=== PATIENT | female | born 1960 | race Caucasian/White ===

== ENCOUNTER 2016-05-21 11:27 | Observation (INO) ==
--- NOTE | 2016-05-21 11:33 | Emergency Department Note ---
Disposition Clinical Impression: COPD exacerbation, Acute exacerbation of chronic obstructive airways disease, History of DVT (deep vein thrombosis) Disposition: Admitted As Inpatient Referrals: NO,PCP [Non-Partnered Physician] - Forms: ED Satisfaction Letter General Adult HPI - General Chief complaint: ED Shortness of Breath/Dyspnea Stated complaint: KALIA Time Seen by Provider: 05/21/16 11:33 - History of Present Illness HPI Narrative: 56-year-old female with a history of COPD who requires 3 L of oxygen reports to the emergency department from her primary care office, there is concern for persistent wheezing. The patient describes a cough and shortness of breath. She has a remote history of a DVT but is not anticoagulated. The patient is not having chest pain or coughing up blood. There is no history of syncope abdominal pain vomiting or diarrhea. No sore throat runny nose or ear pain. There is no history of difficulty moving the arms or legs independently. No leg swelling or pain or coughing up blood. The patient states she has taken 6 breathing treatments today and is still wheezing. There is no history of fever. There is no history of confusion or choking or gasping. No trouble swallowing. The patient denies any history of coronary artery disease or CHF. - Related Data Home Medications Medication Instructions Recorded Confirmed Montelukast [Singulair] 10 mg PO HS 10/01/14 05/21/16 Omeprazole [PriLOSEC] 20 mg PO BIDAC 10/01/14 05/21/16 Albuterol Sulfate [Proair Hfa] 1 puff IH Q4HR PRN 06/10/15 05/21/16 Fluticasone/Salmeterol [Advair 1 puff IH BID 06/10/15 05/21/16 250-50 Diskus] Ipratropium/Albuterol Neb [Duoneb] 3 ml IH Q4HR PRN 06/10/15 05/21/16 Escitalopram [Lexapro] 10 mg PO DAILY 05/21/16 05/21/16 GuaiFENesin ER [Mucinex] 1,200 mg PO BID PRN 05/21/16 05/21/16 Tiotropium [Spiriva] 1 cap IH DAILY 05/21/16 05/21/16 Previous Rx's Medication Instructions Recorded LORazepam [Ativan] 1 mg PO TID PRN #30 tablet 06/16/15 Allergies Allergy/AdvReac Type Severity Reaction Status Date / Time pantoprazole [From Protonix] Allergy See Verified 05/21/16 11:33 Comments All systems ED: reviewed and negative except as stated. 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 Absent: meningismus - Chest Chest inspection: Present: symmetric chest wall rise. Absent: tenderness - Respiratory Respiratory exam: Present: wheezes, prolonged expiratory phase. Absent: normal lung sounds bilaterally, respiratory distress - Cardiovascular Cardiovascular exam: Present: regular rate, normal rhythm, normal heart sounds - Abdominal Exam Abdominal exam: Present: soft, Non-Tender, normal bowel sounds. Absent: tenderness, distention, guarding, rebound, rigidity, pulsatile mass - Extremities Exam Extremities exam: Present: normal inspection, full ROM, normal capillary refill. Absent: tenderness, pedal edema, joint swelling, calf tenderness - Expanded Lower Extremity Exam Lower leg exam: Absent: Homans' sign Neurovascular/Tendon exam: Present: normal capillary refill. Absent: motor deficit, sensory deficit, tendon deficit, extremity cold to touch, pallor - Back Exam Back exam: Present: normal inspection, full ROM. Absent: tenderness, CVA tenderness (R), CVA tenderness (L), vertebral tenderness - Neurological Exam Neurological exam: Present: alert, oriented X3, CN II-XII intact. Absent: motor sensory deficit - Psychiatric Psychiatric exam: Present: normal affect, normal mood - Skin Skin exam: Present: warm, dry, intact, normal color. Absent: rash, cyanosis, diaphoresis, erythema, pallor, mottled Course Vital Signs Temperature 98.3 F 05/21/16 11:34 Pulse Rate 96 05/21/16 11:34 Respiratory Rate 30 05/21/16 11:34 Blood Pressure 114/81 05/21/16 11:34 O2 Sat by Pulse Oximetry 90 05/21/16 11:34 Temperature 98.3 F 05/21/16 11:34 Pulse Rate 84 05/21/16 13:00 Respiratory Rate 26 05/21/16 13:00 Blood Pressure 118/84 05/21/16 13:00 O2 Sat by Pulse Oximetry 96 05/21/16 13:00 Oxygen Delivery Oxygen Delivery Nasal Cannula Medical Decision Making - [facility] Narrative Medical decision making narrative: The patient had 6 breathing treatments prior to arrival, she usually wears 3 L nasal cannula, on 3 L here she is about 91%, somewhat tachypnea, and persistently wheezy. She received a DuoNeb here, subsequently she had a peak flow in which she was able to reach 100 max. A 9 mm DuoNeb was ordered. Continuous oxygen was supplied. The patient appears to have failed outpatient therapy, she is wheezing, she was given Solu-Medrol and antibiotic therapy. Laboratory testing EKG negative. She has a history of DVT remotely, she is not anticoagulated, a d-dimer came back negative. The patient is persistently wheezing, she appears to have failed outpatient therapy, based on no improvement in the ED, I think it would be appropriate to admit the patient to the hospital. The patient is currently stable. I consulted with the hospitalist on-call who has accepted the patient to their care. - Lab Data Lab results reviewed: Yes I reviewed the patient's lab results. Result diagrams: 05/21/16 11:45 05/21/16 11:45 Lab Results 05/21/16 05/21/16 05/21/16 Range/Units 11:45 11:45 11:45 WBC 9.8 (4.3-11.1) K/mcL RBC 4.43 (3.82-4.97) M/mcL Hgb 13.9 (11.5-15.4) g/dL Hct 41.1 (35.3-44.9) % MCV 92.8 (83.0-100.0) fL MCH 31.4 (28.0-33.3) pg MCHC 33.8 (31.6-35.5) g/dL RDW 13.6 (11.5-14.5) % Plt Count 372 (140-400) K/mcL MPV 9.6 (9.4-12.4) fL Immature Gran % 0.3 (0-4) % Seg Neutrophils % 62.2 % Lymphocytes % 26.4 % Monocytes % 5.4 % Eosinophils % 4.7 % Basophils % 1.0 % Neutrophils # 6.1 (1.6-8.9) K/mcL Lymphocytes # 2.6 (0.6-4.6) K/mcL Monocytes # 0.5 (0.0-1.3) K/mcL Eosinophils # 0.5 (0.0-0.6) K/mcL Basophils # 0.1 (0.0-0.2) K/mcL PT 10.7 (9.4-12.1) Seconds INR 1.0 APTT 32.2 (26.0-36.0) Seconds D-Dimer 241 (0-500) ng/mLFEU Sodium 140 (136-145) mEq/L Potassium 4.0 (3.5-4.5) mEq/L Chloride 103 (98-109) mEq/L Carbon Dioxide 28 (19-29) mEq/L BUN 6 L (7-20) mg/dL Creatinine 0.88 (0.57-1.11) mg/dL Est GFR ( Amer) > 60 (> 60) Est GFR (Non-Af Amer) > 60 (> 60) BUN/Creatinine Ratio 7 (6-26) Glucose 98 (70-99) mg/dL Calculated Osmolality 288 (280-300) Lactic Acid (0.5-2.2) mmol/L Calcium 9.8 (8.6-10.8) mg/dL Total Bilirubin 0.4 (0.2-1.2) mg/dL Direct Bilirubin 0.1 (0.0-0.5) mg/dL Indirect Bilirubin 0.3 (0.0-1.2) mg/dL AST 12 (5-34) Units/L ALT 11 (0-55) Units/L Alkaline Phosphatase 92 (38-126) Units/L Troponin I (0-0.03) ng/mL C-Reactive Protein 0 (Less than 5) mg/L B-Natriuretic Peptide (0-100) pg/mL Serum Total Protein 7.0 (6.0-8.3) g/dL Albumin 4.1 (3.5-5.0) g/dL Globulin 2.9 (2.4-3.5) g/dL Albumin/Globulin Ratio 1.4 (1.1-2.2) 05/21/16 05/21/16 05/21/16 Range/Units 11:45 11:45 11:45 WBC (4.3-11.1) K/mcL RBC (3.82-4.97) M/mcL Hgb (11.5-15.4) g/dL Hct (35.3-44.9) % MCV (83.0-100.0) fL MCH (28.0-33.3) pg MCHC (31.6-35.5) g/dL RDW (11.5-14.5) % Plt Count (140-400) K/mcL MPV (9.4-12.4) fL Immature Gran % (0-4) % Seg Neutrophils % % Lymphocytes % % Monocytes % % Eosinophils % % Basophils % % Neutrophils # (1.6-8.9) K/mcL Lymphocytes # (0.6-4.6) K/mcL Monocytes # (0.0-1.3) K/mcL Eosinophils # (0.0-0.6) K/mcL Basophils # (0.0-0.2) K/mcL PT (9.4-12.1) Seconds INR APTT (26.0-36.0) Seconds D-Dimer (0-500) ng/mLFEU Sodium (136-145) mEq/L Potassium (3.5-4.5) mEq/L Chloride (98-109) mEq/L Carbon Dioxide (19-29) mEq/L BUN (7-20) mg/dL Creatinine (0.57-1.11) mg/dL Est GFR ( Amer) (> 60) Est GFR (Non-Af Amer) (> 60) BUN/Creatinine Ratio (6-26) Glucose (70-99) mg/dL Calculated Osmolality (280-300) Lactic Acid 1.0 (0.5-2.2) mmol/L Calcium (8.6-10.8) mg/dL Total Bilirubin (0.2-1.2) mg/dL Direct Bilirubin (0.0-0.5) mg/dL Indirect Bilirubin (0.0-1.2) mg/dL AST (5-34) Units/L ALT (0-55) Units/L Alkaline Phosphatase (38-126) Units/L Troponin I 0.00 (0-0.03) ng/mL C-Reactive Protein (Less than 5) mg/L B-Natriuretic Peptide 19 (0-100) pg/mL Serum Total Protein (6.0-8.3) g/dL Albumin (3.5-5.0) g/dL Globulin (2.4-3.5) g/dL Albumin/Globulin Ratio (1.1-2.2) - Radiology Data Radiology results reviewed: Yes I reviewed the patient's radiology results. - EKG Data EKG #1 EKG shows normal: sinus rhythm Rate: normal Rhythm: NSR Interpretation: no acute changes
[2016-05-21] MEDS ORDERED: methylPREDNISolone 125 MG/2 ML VIAL IVP ONE (11:40)
[2016-05-21] MEDS ORDERED: Levofloxacin 750 MG/150 ML 750 MG/150 ML BAG IVPB ONE (11:41)
[2016-05-21] MEDS ORDERED: Ipratropium/Albuterol Neb 3 ML IH ONE ×2 (11:41→12:28)
[2016-05-21 11:56] LABS: Basophils # 0.1 K/mcL (0.0-0.2); Eosinophils # 0.5 K/mcL (0.0-0.6); Eosinophils % 4.7 %; Hematocrit 41.1 % (35.3-44.9); Hemoglobin 13.9 g/dL (11.5-15.4); Immature Granulocytes % 0.3 % (0-4); Lymphocytes # 2.6 K/mcL (0.6-4.6); Lymphocytes % 26.4 %; Mean Corpuscular HGB Conc 33.8 g/dL (31.6-35.5); Mean Corpuscular Hemoglobin 31.4 pg (28.0-33.3); Mean Corpuscular Volume 92.8 fL (83.0-100.0); Mean Platelet Volume 9.6 fL (9.4-12.4); Monocytes # 0.5 K/mcL (0.0-1.3); Monocytes % 5.4 %; Neutrophils # 6.1 K/mcL (1.6-8.9); Platelet Count 372 K/mcL (140-400); Red Blood Count 4.43 M/mcL (3.82-4.97); Red Cell Distribution Width 13.6 % (11.5-14.5); Segmented Neutrophils % 62.2 %
[2016-05-21 12:02] LABS: Prothrombin Time 10.7 Seconds (9.4-12.1)
[2016-05-21 12:04] LABS: Activated Partial Thrombo Time 32.2 Seconds (26.0-36.0)
[2016-05-21 12:08] LABS: Alanine Aminotransferase 11 Units/L (0-55); Albumin 4.1 g/dL (3.5-5.0); Albumin/Globulin Ratio 1.4 (1.1-2.2); Alkaline Phosphatase 92 Units/L (38-126); Aspartate Amino Transferase 12 Units/L (5-34); BUN/Creatinine Ratio 7 (6-26); Bilirubin,Direct 0.1 mg/dL (0.0-0.5); Bilirubin,Indirect 0.3 mg/dL (0.0-1.2); Bilirubin,Total 0.4 mg/dL (0.2-1.2); Blood Urea Nitrogen 6 mg/dL (7-20); C-Reactive Protein 0 mg/L (Less than 5); Calcium 9.8 mg/dL (8.6-10.8); Carbon Dioxide 28 mEq/L (19-29); Chloride 103 mEq/L (98-109); Globulin 2.9 g/dL (2.4-3.5); Glucose 98 mg/dL (70-99); Osmolality,Calculated 288 (280-300); Sodium 140 mEq/L (136-145); eGFR For African Americans > 60 (> 60); eGFR For Non-African Americans > 60 (> 60)
[2016-05-21] MEDS ORDERED: Naloxone 0.4 MG/ML INJ IVP PRN (15:29)
[2016-05-21] MEDS ORDERED: Albuterol 2.5 MG/3 ML NEBULIZER IH PRN (15:30)
[2016-05-21] MEDS ORDERED: *HR* LORazepam 1 MG TABLET PO PRN (15:32)
--- NOTE | 2016-05-21 15:38 | Internal Med History&Physical ---
<Ema Jimenez M - Last Filed: 05/21/16 15:56> Date of Encounter: 05/21/16 Time of Encounter: 15:34 Assessment and Plan (1) Acute exacerbation of chronic obstructive airways disease Current visit: Yes Status: Acute Patient with COPD, wears 3L of oxygen at home. Patient with increased shortness of breath, wheezing and coughing over the last several days, despite using prescribed medications and nebulizers. WBC normal at 9.8. She is afebrile. CXR shows no active pulmonary disease. On exam, diffuse expiratory wheezes bilaterally. She received duoneb treatment, 125mg Solu-medrol IVP and IVPB levaquin in the ED Solu-medrol 40mg IVP Q8hr Will start her on Azithromycin PO duoneb treatments QID albuterol nebulizer Q2hr PRN Budesonide/Formoterol BID Continue home doses of Singulair, Spiriva and Musinex Titrate O2 to maintain O2 saturation > 90%. (2) GERD (gastroesophageal reflux disease) Current visit: No Status: Chronic Continue home dose of prilosec. Qualifiers: Esophagitis presence: without esophagitis Qualified Code(s): K21.9 - Gastro -esophageal reflux disease without esophagitis (3) Sleep apnea Current visit: Yes Status: Acute Patient wears bipap at home overnight. Bipap ordered for overnight and Respiratory therapy consult ordered. Qualifiers: Sleep apnea type: unspecified type Qualified Code(s): G47.30 - Sleep apnea , unspecified (4) DVT prophylaxis Current visit: No Status: Acute Encourage ambulation anti-embolic stockings Lovenox 40mg SQ daily Internal Medicine - H&P: HPI Chief complaint: shortness of breath Admitted From: Emergency Dept Plans for Post Hospital Care: Home History of present illness: Ms. Beckett is a 56 year old female with COPD, GERD, remote history of CVA, remote history of DVT presented to the emergency department today with complaints of increasing cough, shortness of breath, and wheezing. Patient reports she noticed her shortness of breath was getting worse for 5 days ago and has progressed since then, she has increasing cough productive of clear white sputum, and she has wheezing that has progressively worsened since onset 4 -5 days ago as well. She has been taking her medications, inhalers, nebulizers as prescribed at home without relief of her symptoms. She also wears a BiPAP overnight, but reports that her symptoms are worse in the morning. She reports occasional lightheadedness associated with her shortness of breath. She denies any chest pain, palpitations, headache, fever, chills, sweats, numbness or tingling. Evaluation in the emergency department included an EKG which showed normal sinus rhythm, chest x-ray which showed no active pulmonary disease. D- dimer was obtained which was negative at 241. Troponin was negative at 0.0. Lactate was normal at 1.0, BNP was normal at 19. White blood cell count was normal at 9.8. On exam, patient is alert and oriented, in no acute distress. Lungs have diffuse expiratory wheezes. Heart has regular rate and rhythm. Past Med Surg Social Fam HX - Past Medical History Medical history: arthritis, asthma, COPD, CVA, DVT, GERD Psychiatric history: anxiety - Past Surgical History Surgical History: appendectomy, hysterectomy, orthopedic, other - Social History Smoking Status: Former smoker (33 pack year history) Smokeless Tobacco Status: No Alcohol use: rarely Drug use: none - Family History Mother Living Status: Age at : 88 Cause of : COPD Hx Family Cardiac Disorders: Yes Hx Family Respiratory Disorders: Yes Hx Family Cancer: No Hx Family GI Disorders: Yes (colostomy form colon tear colonoscopy) Hx Family Endocrine Disorder: No Hx Family Neuromuscular Disorders: No Hx Family Neurologic Disorders: No Hx Family HEENT Disorders: No Hx Family Autoimmune Disorders: No Father Living Status: Age at : 73 Cause of : lung CA Hx Family Cardiac Disorders: Yes Hx Family Cancer: Yes Internal Medicine - H&P: Meds Montelukast [Singulair] 10 mg PO HS 10/01/14 [History] Omeprazole [PriLOSEC] 20 mg PO BIDAC 10/01/14 [History] Albuterol Sulfate [Proair Hfa] 1 puff IH Q4HR PRN 06/10/15 [History] Fluticasone/Salmeterol [Advair 250-50 Diskus] 1 puff IH BID 06/10/15 [History] Ipratropium/Albuterol Neb [Duoneb] 3 ml IH Q4HR PRN 06/10/15 [History] LORazepam [Ativan] 1 mg PO TID PRN #30 tablet 06/16/15 [Rx] Escitalopram [Lexapro] 10 mg PO DAILY 05/21/16 [History] GuaiFENesin ER [Mucinex] 1,200 mg PO BID PRN 05/21/16 [History] Tiotropium [Spiriva] 1 cap IH DAILY 05/21/16 [History] Allergies pantoprazole [From Protonix] Allergy (Verified 05/21/16 11:33) See Comments All Systems PM: A 10-system review of systems was performed and is negative for pertinent findings except as documented above in the HPI. - Constitutional Constitutional: no chills, no fever(s), no night sweats - EENT Eyes: no change in vision, no discharge, no pain, no photophobia Ears: no ear discharge, no ear pain, no tinnitus Nose, mouth and throat: no dysphagia, no nasal discharge, no neck pain, no sore throat - Cardiovascular Cardiovascular ROS IM: dyspnea, dyspnea on exertion, lightheadedness, no chest pain, no diaphoresis, no palpitations, no syncope - Respiratory Respiratory: cough, dyspnea, dyspnea on exertion, wheezing, excessive phlegm production - Gastrointestinal Gastrointestinal: no abdominal pain, no diarrhea, no hematemesis, no hematochezia, no melena, no nausea, no vomiting - Genitourinary Genitourinary: no change in urinary stream, no dysuria, no flank pain, no hematuria - Musculoskeletal Musculoskeletal ROS IM: no numbness, no tingling - Integumentary Integumentary IM: no rash, no unusual bruising - Neurological Neurological ROS: no confusion, no convulsions, no focal weakness, no numbness, no tingling, no tremor(s) - Hematologic/Lymphatic Hematologic/Lymphatic: no easy bruising - Constitutional Vitals: Temp Pulse Resp BP Pulse Ox 98.2 F 95 16 119/70 96 05/21/16 14:53 05/21/16 14:53 05/21/16 14:53 05/21/16 14:53 05/21/16 14:53 General appearance: Present: A&O X 3, pleasant, no acute distress - Head Head exam: Present: atraumatic, normocephalic - Eye Eye exam: Present: PERRL, conjuntiva pink, sclera anicteric Pupils: Present: PERRL - Neck Neck exam general surgery: Present: supple, trachea midline. Absent: lymphadenopathy - Respiratory Respiratory exam: Present: wheezes (diffuse, bilateral expiratory wheezes). Absent: accessory muscle use, rales, rhonchi - Cardiovascular Cardiovascular exam: Present: RRR, +S1, +S2. Absent: diastolic murmur, gallop, rubs, systolic murmur - GI/Abdominal GI/Abdominal exam: Present: normal bowel sounds, soft, no peritoneal signs. Absent: distended, tenderness - Extremities Exam Extremities exam: Present: warm, radial pulses palpable and symetrical. Absent : calf tenderness, cyanotic, pedal edema - Neurological Exam Neurological exam: Present: CN II-XII intact, oriented X3, no focal deficits. Absent: facial droop, speech deficit - Skin Skin exam: Present: dry, intact Internal Med - H&P Results - Labs CBC & Chem 7: 05/21/16 11:45 05/21/16 11:45 Labs: All Lab Results (24 Hours) 05/21/16 05/21/16 05/21/16 Range/Units 11:45 11:45 11:45 WBC 9.8 (4.3-11.1) K/mcL RBC 4.43 (3.82-4.97) M/mcL Hgb 13.9 (11.5-15.4) g/dL Hct 41.1 (35.3-44.9) % MCV 92.8 (83.0-100.0) fL MCH 31.4 (28.0-33.3) pg MCHC 33.8 (31.6-35.5) g/dL RDW 13.6 (11.5-14.5) % Plt Count 372 (140-400) K/mcL MPV 9.6 (9.4-12.4) fL Immature Gran % 0.3 (0-4) % Seg Neutrophils % 62.2 % Lymphocytes % 26.4 % Monocytes % 5.4 % Eosinophils % 4.7 % Basophils % 1.0 % Neutrophils # 6.1 (1.6-8.9) K/mcL Lymphocytes # 2.6 (0.6-4.6) K/mcL Monocytes # 0.5 (0.0-1.3) K/mcL Eosinophils # 0.5 (0.0-0.6) K/mcL Basophils # 0.1 (0.0-0.2) K/mcL PT 10.7 (9.4-12.1) Seconds INR 1.0 APTT 32.2 (26.0-36.0) Seconds D-Dimer 241 (0-500) ng/mLFEU Sodium 140 (136-145) mEq/L Potassium 4.0 (3.5-4.5) mEq/L Chloride 103 (98-109) mEq/L Carbon Dioxide 28 (19-29) mEq/L BUN 6 L (7-20) mg/dL Creatinine 0.88 (0.57-1.11) mg/dL Est GFR ( Amer) > 60 (> 60) Est GFR (Non-Af Amer) > 60 (> 60) BUN/Creatinine Ratio 7 (6-26) Glucose 98 (70-99) mg/dL Calculated Osmolality 288 (280-300) Lactic Acid (0.5-2.2) mmol/L Calcium 9.8 (8.6-10.8) mg/dL Total Bilirubin 0.4 (0.2-1.2) mg/dL Direct Bilirubin 0.1 (0.0-0.5) mg/dL Indirect Bilirubin 0.3 (0.0-1.2) mg/dL AST 12 (5-34) Units/L ALT 11 (0-55) Units/L Alkaline Phosphatase 92 (38-126) Units/L Troponin I (0-0.03) ng/mL C-Reactive Protein 0 (Less than 5) mg/L B-Natriuretic Peptide (0-100) pg/mL Serum Total Protein 7.0 (6.0-8.3) g/dL Albumin 4.1 (3.5-5.0) g/dL Globulin 2.9 (2.4-3.5) g/dL Albumin/Globulin Ratio 1.4 (1.1-2.2) 05/21/16 05/21/16 05/21/16 Range/Units 11:45 11:45 11:45 WBC (4.3-11.1) K/mcL RBC (3.82-4.97) M/mcL Hgb (11.5-15.4) g/dL Hct (35.3-44.9) % MCV (83.0-100.0) fL MCH (28.0-33.3) pg MCHC (31.6-35.5) g/dL RDW (11.5-14.5) % Plt Count (140-400) K/mcL MPV (9.4-12.4) fL Immature Gran % (0-4) % Seg Neutrophils % % Lymphocytes % % Monocytes % % Eosinophils % % Basophils % % Neutrophils # (1.6-8.9) K/mcL Lymphocytes # (0.6-4.6) K/mcL Monocytes # (0.0-1.3) K/mcL Eosinophils # (0.0-0.6) K/mcL Basophils # (0.0-0.2) K/mcL PT (9.4-12.1) Seconds INR APTT (26.0-36.0) Seconds D-Dimer (0-500) ng/mLFEU Sodium (136-145) mEq/L Potassium (3.5-4.5) mEq/L Chloride (98-109) mEq/L Carbon Dioxide (19-29) mEq/L BUN (7-20) mg/dL Creatinine (0.57-1.11) mg/dL Est GFR ( Amer) (> 60) Est GFR (Non-Af Amer) (> 60) BUN/Creatinine Ratio (6-26) Glucose (70-99) mg/dL Calculated Osmolality (280-300) Lactic Acid 1.0 (0.5-2.2) mmol/L Calcium (8.6-10.8) mg/dL Total Bilirubin (0.2-1.2) mg/dL Direct Bilirubin (0.0-0.5) mg/dL Indirect Bilirubin (0.0-1.2) mg/dL AST (5-34) Units/L ALT (0-55) Units/L Alkaline Phosphatase (38-126) Units/L Troponin I 0.00 (0-0.03) ng/mL C-Reactive Protein (Less than 5) mg/L B-Natriuretic Peptide 19 (0-100) pg/mL Serum Total Protein (6.0-8.3) g/dL Albumin (3.5-5.0) g/dL Globulin (2.4-3.5) g/dL Albumin/Globulin Ratio (1.1-2.2) - Diagnostic Studies Chest x-ray Additional comments: Chest X-Ray 05/21/16 11:36 IMPRESSION: 1. No active pulmonary disease. D/ / Tone Alvarenga MD / Tone Alvarenga MD Interpreting Provider: Tone Alvarenga MD <PowerJuventino T - Last Filed: 05/21/16 17:20> Date of Encounter: 05/21/16 Internal Medicine - H&P: HPI History of present illness: Ms. Beckett is a 56 year old female All Systems PM: A 10-system review of systems was performed and is negative for pertinent findings except as documented above in the HPI. - Constitutional Vitals: Temp Pulse Resp BP Pulse Ox 98.2 F 95 16 119/70 96 05/21/16 14:53 05/21/16 14:53 05/21/16 14:53 05/21/16 14:53 05/21/16 16:02 Internal Med - H&P Results - Labs CBC & Chem 7: 05/21/16 11:45 05/21/16 11:45 - Attending Attestation I have independently interviewed and examined this patient. I have discussed this patient with CRISTINA Yates, and her documentation reflects the plan of care with the following addendum 46 F with chronic respiratory failure on home O2, JOSH, ex-smoker, COPD presented with worsening SOB, and wheezing. Labs and imaging unremarkable. Agree with management for COPDE, duonebs, steroids, oral antibiotics, anticipate early discharge. Rest of details as in geospatial extractor analysis documentation
[2016-05-21] MEDS: MethylPREDNISolone 40 MG/ML VIAL IVP SCH (17:20)
[2016-05-21] MEDS: Azithromycin 250 MG TABLET PO SCH (17:20)
[2016-05-21] MEDS: Ipratropium/Albuterol Neb 3 ML IH SCH ×2 (19:34→23:21)
[2016-05-21] MEDS: Budesonide/Formoterol 160/4.5 MDI IH SCH (23:21)
[2016-05-22] MEDS: MethylPREDNISolone 40 MG/ML VIAL IVP SCH ×3 (00:57→18:02)
[2016-05-22] MEDS: Ipratropium/Albuterol Neb 3 ML IH SCH ×3 (04:24→16:17)
[2016-05-22 04:59] LABS: Hematocrit 38.6 % (35.3-44.9); Hemoglobin 12.6 g/dL (11.5-15.4); Immature Granulocytes % 0.5 % (0-4); Lymphocytes # 0.7 K/mcL (0.6-4.6); Lymphocytes % 9.1 %; Mean Corpuscular HGB Conc 32.6 g/dL (31.6-35.5); Mean Corpuscular Hemoglobin 30.4 pg (28.0-33.3); Mean Corpuscular Volume 93.2 fL (83.0-100.0); Mean Platelet Volume 9.5 fL (9.4-12.4); Monocytes # 0.1 K/mcL (0.0-1.3); Monocytes % 1.3 %; Neutrophils # 6.7 K/mcL (1.6-8.9); Platelet Count 350 K/mcL (140-400); Red Blood Count 4.14 M/mcL (3.82-4.97); Red Cell Distribution Width 13.6 % (11.5-14.5); Segmented Neutrophils % 89.1 %
[2016-05-22 05:22] LABS: BUN/Creatinine Ratio 13 (6-26); Blood Urea Nitrogen 11 mg/dL (7-20); Carbon Dioxide 25 mEq/L (19-29); Chloride 104 mEq/L (98-109); Glucose 156 mg/dL (70-99); Osmolality,Calculated 293 (280-300); Potassium 4.1 mEq/L (3.5-4.5); Sodium 140 mEq/L (136-145); eGFR For African Americans > 60 (> 60); eGFR For Non-African Americans > 60 (> 60)
--- NOTE | 2016-05-22 06:40 | Electrocardiograph Report ---
[place] [address] Test Date: 2016-05-21 Pat Name: Mae Beckett Department: 104 Room: 3B Gender: F Senior Application Security Consultant: ОЛЬГА : 1960 Requested By: Andreas Amin Order Number: [id number] Reading MD: Duy Del Valle MD Measurements Intervals [place] Rate: 84 P: 84 ND: 129 QRS: 79 QRSD: 94 T: 75 QT: 354 QTc: 395 Interpretive Statements SINUS RHYTHM WITH SINUS ARRHYTHMIA Electronically Signed On 05-22-2016 6:39:10 EDT by Duy Del Valle MD
[2016-05-22] MEDS ORDERED: *HR* Enoxaparin 40 MG/0.4 ML SYRINGE SQ SCH (07:00)
[2016-05-22] MEDS ORDERED: Levofloxacin 750 MG/150 ML 750 MG/150 ML BAG IVPB SCH (09:00)
[2016-05-22] MEDS ORDERED: Tiotropium 18 MCG inhalation IH SCH (09:00)
[2016-05-22] MEDS: Budesonide/Formoterol 160/4.5 MDI IH SCH (10:17)
[2016-05-22 14:41] VITALS: BP 104/66
[2016-05-22] MEDS: Azithromycin 250 MG TABLET PO SCH (18:02)
--- NOTE | 2016-05-22 18:04 | Discharge Summary ---
Date of Encounter: 05/22/16 Time of Encounter: 16:45 - Discharge Diagnosis (1) Acute exacerbation of chronic obstructive airways disease Priority: Primary Status: Resolved Comments: Patient is stating that she had returned to her normal day of discharge after just a 1 day admission. We will send her home on a 3 week prednisone taper. (2) Acute and chronic respiratory failure Priority: Secondary Status: Chronic Comments: Patient stating she is on 3 L per nasal cannula continuously at home and BiPAP while asleep and as needed. No increased need an oxygen requirement. Qualifiers: Respiratory failure complication: unspecified whether with hypoxia or hypercapnia Qualified Code(s): J96.20 - Acute and chronic respiratory failure , unspecified whether with hypoxia or hypercapnia (3) GERD (gastroesophageal reflux disease) Priority: Secondary Status: Chronic Comments: Denied current symptoms Qualifiers: Esophagitis presence: without esophagitis Qualified Code(s): K21.9 - Gastro -esophageal reflux disease without esophagitis (4) Chronic pain syndrome Priority: Secondary Status: Chronic (5) DVT prophylaxis Priority: Primary Status: Acute Comments: Subcutaneous Lovenox while admitted (6) Sleep apnea Priority: Secondary Status: Chronic Comments: Compliant with BiPAP. Qualifiers: Sleep apnea type: unspecified type Qualified Code(s): G47.30 - Sleep apnea , unspecified - Discharge Medications Prescriptions: Levofloxacin 750 mg PO DAILY #5 tablet PredniSONE 10 mg PO DAILY #95 tablet Home Medications: Montelukast [Singulair] 10 mg PO HS 10/01/14 [History] Omeprazole [PriLOSEC] 20 mg PO BIDAC 10/01/14 [History] Albuterol Sulfate [Proair Hfa] 1 puff IH Q4HR PRN 06/10/15 [History] Fluticasone/Salmeterol [Advair 250-50 Diskus] 1 puff IH BID 06/10/15 [History] Ipratropium/Albuterol Neb [Duoneb] 3 ml IH Q4HR PRN 06/10/15 [History] LORazepam [Ativan] 1 mg PO TID PRN #30 tablet 06/16/15 [Rx] Escitalopram [Lexapro] 10 mg PO DAILY 05/21/16 [History] GuaiFENesin ER [Mucinex] 1,200 mg PO BID PRN 05/21/16 [History] Tiotropium [Spiriva] 1 cap IH DAILY 05/21/16 [History] Levofloxacin 750 mg PO DAILY #5 tablet 05/22/16 [Rx] PredniSONE 10 mg PO DAILY #95 tablet 05/22/16 [Rx] Allergies/Adverse Reactions: Allergies pantoprazole [From Protonix] Allergy (Verified 05/21/16 11:33) See Comments Date of admission: 05/21/16 14:08 Primary care physician: April Cheng CNP Discharging clinician: Loreta Hunt Anticipated date of discharge: 05/22/16 - Patient Status Disposition: Home, Self-Care Condition: Fair Functional capacity at discharge: independent ambulation Overall status at discharge: patient is back to baseline - Discharge Instructions Instructions: Chronic Obstructive Pulmonary Disease (DC) Follow Up With: April Cheng CNP [Primary Care Provider] - 05/29/16 1:30 pm Antonio Schaefer MD [Partnered Physician] - 08/11/16 9:45 am Additional Instructions: Follow-up with primary care provider and spiral tube winder as scheduled - Diet and Activity Activity: increase activity as tolerated, wear oxygen at all times Diet: regular diet Hospital course: Ms. Beckett is a 56 year old female with past medical history of end-stage COPD on 3 L per nasal cannula continuously home as well as BiPAP as needed and at bedtime, GERD, remote CVA, remote DVT. Patient presented to the emergency room for chief complaint increasing cough, shortness of breath, and wheezing worsening over the past 5 days prior to presentation. Patient states she was taking her medications, inhalers, nebulizers as prescribed without relief at home prompting her presentation. She also endorsed compliance with her BiPAP. Patient also endorsed occasional lightheadedness associated with her shortness of breath. She denied any chest pain, palpitations. Workup in the emergency department unremarkable. Chest x-ray negative. D-dimer negative. Patient was admitted to the hospitalist service for further evaluation and management. She was admitted and served over the course of one night and on day of discharge, she states that she was back to her baseline. Ideally, would have preferred to have kept her for another day or 2 to slowly wean her off IV Solu-Medrol transition her to by mouth steroids however the patient stated that she wanted to go home and stated that she was back to her baseline and felt she was ready to go home. She was sent on a lengthy prednisone taper starting with 60 mg and slowly weaning her over the course of several weeks. She was also sent home on Levaquin. Of note, she is taking azithromycin every other day at home per pulmonology and she was instructed to continue taking this medication and to follow-up closely outpatient with pulmonology as scheduled. She was discharged home in stable condition with close outpatient follow-up recommended. ITS Impressions Chest X-Ray 05/21/16 11:36 IMPRESSION: 1. No active pulmonary disease. D/ / Tone Alvarenga MD / Tone Alvarenga MD Interpreting Provider: Tone Alvarenga MD - Time Spent with Patient Total time spent providing and/or coordinating discharge services: - Constitutional Vitals: Temp Pulse Resp BP Pulse Ox 97.6 F 102 16 104/66 94 05/22/16 14:35 05/22/16 14:35 05/22/16 16:18 05/22/16 14:35 05/22/16 16:18 General appearance: Present: mild distress, A&O X 3, pleasant, answers questions appropriately - Head Head exam: Present: atraumatic, normocephalic - Eye Eye exam: Present: PERRL, conjuntiva pink, sclera anicteric Pupils: Present: PERRL - Neck Neck exam general surgery: Present: supple, trachea midline. Absent: lymphadenopathy - Respiratory Respiratory exam: Present: accessory muscle use, decreased breath sounds, prolonged expiratory phase, respiratory distress (mild; chronic; able to carry conversations), wheezes. Absent: rales, rhonchi - Cardiovascular Cardiovascular exam: Present: RRR, +S1, +S2. Absent: diastolic murmur, gallop, rubs, systolic murmur - GI/Abdominal GI/Abdominal exam: Present: normal bowel sounds, soft, no peritoneal signs. Absent: distended, tenderness - Extremities Exam Extremities exam: Present: warm, radial pulses palpable and symetrical. Absent : calf tenderness, cyanotic, pedal edema - Neurological Exam Neurological exam: Present: alert, CN II-XII intact, normal gait, oriented X3, no focal deficits, strengths equal and symetr throughout. Absent: pronater drift, facial droop, speech deficit - Skin Skin exam: Present: dry, intact, pallor, warm
== END 2016-05-22 18:30 | disposition home or self-care (01) ==
LOC: 3BNU 11:27 → EMEROO 11:27 → 3BNU 14:30
PROVIDERS: ADMIT Nurse Practitioner Family; ATTEND Nurse Practitioner Family

== ENCOUNTER 2017-04-06 19:48 | Inpatient (IN) ==
--- NOTE | 2017-04-06 20:45 | Emergency Department Note ---
Disposition Clinical Impression: COPD exacerbation Disposition: Admitted As Inpatient Condition: Good General Adult HPI - General Chief complaint: ED Shortness of Breath/Dyspnea Stated complaint: sob,hx copd Time Seen by Provider: 04/06/17 20:38 Source: patient Limitations: no limitations - History of Present Illness Pain Scale: 0 - Related Data Home Medications Medication Instructions Recorded Confirmed Montelukast [Singulair] 10 mg PO HS 10/01/14 04/06/17 Omeprazole [PriLOSEC] 20 mg PO BIDAC 10/01/14 04/06/17 Albuterol Sulfate [Proair Hfa] 2 puff IH Q4HR PRN 06/10/15 04/06/17 Ipratropium/Albuterol Neb [Duoneb] 3 ml IH Q4HR PRN 06/10/15 04/06/17 Escitalopram [Lexapro] 10 mg PO DAILY 05/21/16 04/06/17 Tiotropium [Spiriva] 18 mcg IH DAILY 05/21/16 04/06/17 Budesonide/Formoterol 160/4.5 2 puff IH BIDR 04/06/17 04/06/17 [Symbicort 160/4.5] LORazepam [Ativan] 1 mg PO HS PRN 04/06/17 04/06/17 Oxygen 3 l NS AD 04/06/17 04/06/17 Roflumilast [Daliresp] 500 mcg PO DAILY 04/06/17 04/06/17 Sodium Chloride for inhalation 3 ml IH QID PRN 04/06/17 04/06/17 [Sodium Chloride, Saline 3 ML] Allergies Allergy/AdvReac Type Severity Reaction Status Date / Time pantoprazole [From Protonix] Allergy See Verified 12/10/16 16:19 Comments Past Medical History - Past Medical History Medical history: Reports: non-contributory Surgical history: Reports: appendectomy, hysterectomy, orthopedic, other Psychiatric history: Reports: anxiety 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 DEVELOPER history - Social History Smoking Status: Never smoker Smokeless Tobacco Status: No Alcohol use: Reports: occasionally Drug use: Reports: none Physical Exam - General Limitations: no limitations General appearance: alert, in no apparent distress Course Vital Signs Temperature 98.1 F 04/06/17 19:50 Pulse Rate 93 04/06/17 19:50 Respiratory Rate 18 04/06/17 19:50 Blood Pressure 121/100 04/06/17 19:50 O2 Sat by Pulse Oximetry 95 04/06/17 19:50 Temperature 97.7 F 04/06/17 23:16 Pulse Rate 84 04/06/17 23:16 Respiratory Rate 16 04/06/17 23:16 Blood Pressure 114/57 04/06/17 23:16 O2 Sat by Pulse Oximetry 95 04/06/17 23:16 Oxygen Delivery Oxygen Delivery Nasal Cannula Medical Decision Making - Lab Data Result diagrams: 04/06/17 21:02 04/06/17 21:02 Lab Results 04/06/17 04/06/17 04/06/17 Range/Units 21:02 21:02 21:02 WBC 8.7 (4.3-11.1) K/mcL RBC 4.60 (3.82-4.97) M/mcL Hgb 13.6 (11.5-15.4) g/dL Hct 42.2 (35.3-44.9) % MCV 91.7 (83.0-100.0) fL MCH 29.6 (28.0-33.3) pg MCHC 32.2 (31.6-35.5) g/dL RDW 14.6 H (11.5-14.5) % Plt Count 412 H (140-400) K/mcL MPV 9.6 (9.4-12.4) fL Immature Gran % 0.3 (0-4) % Seg Neutrophils % 45.9 % Lymphocytes % 34.5 % Monocytes % 7.1 % Eosinophils % 11.3 % Basophils % 0.9 % Neutrophils # 4.0 (1.6-8.9) K/mcL Lymphocytes # 3.0 (0.6-4.6) K/mcL Monocytes # 0.6 (0.0-1.3) K/mcL Eosinophils # 1.0 H (0.0-0.6) K/mcL Basophils # 0.1 (0.0-0.2) K/mcL Nucleated RBCs/100 WBC 0.2 H (0) /100 WBC Sodium 139 (136-145) mEq/L Potassium 3.8 (3.5-5.1) mEq/L Chloride 103 (98-107) mEq/L Carbon Dioxide 30 H (23-29) mEq/L BUN 5 L (6-20) mg/dL Creatinine 0.85 (0.60-1.20) mg/dL Est GFR ( Amer) > 60 (> 60) Est GFR (Non-Af Amer) > 60 (> 60) BUN/Creatinine Ratio 6 (6-26) Glucose 95 (70-105) mg/dL Calculated Osmolality 285 (280-300) Calcium 9.4 (8.6-10.3) mg/dL Troponin I < 0.03 (< 0.04) ng/mL B-Natriuretic Peptide (Less than 100) pg/mL 04/06/17 Range/Units 21:02 WBC (4.3-11.1) K/mcL RBC (3.82-4.97) M/mcL Hgb (11.5-15.4) g/dL Hct (35.3-44.9) % MCV (83.0-100.0) fL MCH (28.0-33.3) pg MCHC (31.6-35.5) g/dL RDW (11.5-14.5) % Plt Count (140-400) K/mcL MPV (9.4-12.4) fL Immature Gran % (0-4) % Seg Neutrophils % % Lymphocytes % % Monocytes % % Eosinophils % % Basophils % % Neutrophils # (1.6-8.9) K/mcL Lymphocytes # (0.6-4.6) K/mcL Monocytes # (0.0-1.3) K/mcL Eosinophils # (0.0-0.6) K/mcL Basophils # (0.0-0.2) K/mcL Nucleated RBCs/100 WBC (0) /100 WBC Sodium (136-145) mEq/L Potassium (3.5-5.1) mEq/L Chloride (98-107) mEq/L Carbon Dioxide (23-29) mEq/L BUN (6-20) mg/dL Creatinine (0.60-1.20) mg/dL Est GFR ( Amer) (> 60) Est GFR (Non-Af Amer) (> 60) BUN/Creatinine Ratio (6-26) Glucose (70-105) mg/dL Calculated Osmolality (280-300) Calcium (8.6-10.3) mg/dL Troponin I (< 0.04) ng/mL B-Natriuretic Peptide 19 (Less than 100) pg/mL Attestation Statement - Attestation Attestation: I examined this patient and my medical decision-making was reviewed with the Resident Physician. I agree with the documented findings, disposition and treatment plan as described except to the extent set forth below. [id number] time provided Patient arrives complaining of dyspnea. She has a history of oxygen dependent COPD. Does not appear in any acute respiratory distress upon arrival by wheelchair. Seen in conjunction with the resident physician Dr Ramirez
[2017-04-06] MEDS ORDERED: methylPREDNISolone 125 MG/2 ML VIAL IVP ONE (20:51)
[2017-04-06] MEDS ORDERED: Ipratropium/Albuterol Neb 3 ML IH ONE (20:51)
--- NOTE | 2017-04-06 20:55 | Emergency Department Note ---
Disposition Clinical Impression: COPD exacerbation Disposition: Admitted As Inpatient Condition: Good Referrals: Librado Andre MD [Primary Care Provider] - Forms: ED Satisfaction Letter SOB HPI - General Chief Complaint: ED Shortness of Breath/Dyspnea Stated Complaint: mouna,hx copd Time Seen by Provider: 04/06/17 20:38 Source: patient Mode of arrival: private vehicle Limitations: no limitations Nursing Notes Reviewed: Yes Vital Signs Reviewed: Yes - History of Present Illness 57-year-old female history of COPD and wears 3 L as needed presents to the ER due to shortness of breath and cough. Patient states she has been sick for roughly 3 weeks. She has seen her primary care provider twice and been on 2 rounds of steroids as well as antibiotics. Patient states she never really started to feel better during any of that. She reports cough with productive sputum. No fevers or chest pain. One prior history of DVT 2 decades ago. No nausea vomiting or diarrhea. No other complaints. Pt Subjective Complaint: shortness of breath, cough Onset (ago): week(s) Context: recent illness Severity: moderate Consistency/Duration: constant Improves with: nothing Worsens with: nothing Known history of: COPD Associated symptoms: Reports: cough, wheezing, sputum production. Denies: chest pain, fever Treatment prior to arrival: oxygen, bronchodilator Cough present: Yes Cough Description: Involuntary Cough Frequency: Intermittent - Related Data Home oxygen amount: 3 liters Home Medications Medication Instructions Recorded Confirmed Montelukast [Singulair] 10 mg PO HS 10/01/14 05/21/16 Omeprazole [PriLOSEC] 20 mg PO BIDAC 10/01/14 05/21/16 Albuterol Sulfate [Proair Hfa] 1 puff IH Q4HR PRN 06/10/15 05/21/16 Fluticasone/Salmeterol [Advair 1 puff IH BID 06/10/15 05/21/16 250-50 Diskus] Ipratropium/Albuterol Neb [Duoneb] 3 ml IH Q4HR PRN 06/10/15 05/21/16 Escitalopram [Lexapro] 10 mg PO DAILY 05/21/16 05/21/16 GuaiFENesin ER [Mucinex] 1,200 mg PO BID PRN 05/21/16 05/21/16 Tiotropium [Spiriva] 1 cap IH DAILY 05/21/16 05/21/16 Previous Rx's Medication Instructions Recorded LORazepam [Ativan] 1 mg PO TID PRN #30 tablet 06/16/15 levoFLOXacin [Levofloxacin] 750 mg PO DAILY #5 tablet 05/22/16 predniSONE [PredniSONE] 10 mg PO DAILY #95 tablet 05/22/16 Diclofenac Potassium 50 mg PO TID PRN #20 tablet 12/10/16 Allergies Allergy/AdvReac Type Severity Reaction Status Date / Time pantoprazole [From Protonix] Allergy See Verified 12/10/16 16:19 Comments All systems ED: reviewed and negative except as stated. Constitutional: Denies: fever Cardiovascular: Denies: chest pain Respiratory: Reports: cough, dyspnea, sputum production Gastrointestinal: Denies: nausea, vomiting, diarrhea Past Medical History - Past Medical History Attestation: Yes The following information was validated with the patient. 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 - Social History Smoking Status: Never smoker Smokeless Tobacco Status: No Alcohol use: Reports: occasionally Drug use: Reports: none Physical Exam - General Limitations: no limitations General appearance: alert, in no apparent distress - Head Head exam: atraumatic, normocephalic - Eye Eye exam: Present: normal appearance - ENT ENT exam: normal exam - Neck Neck exam: Present: normal inspection, full ROM - Chest Chest inspection: Present: normal inspection, symmetric chest wall rise - Respiratory Respiratory exam: Present: wheezes (Diffuse end expiratory wheezing), accessory muscle use, prolonged expiratory phase - Cardiovascular Cardiovascular exam: Present: regular rate, normal rhythm, normal heart sounds - Abdominal Exam Abdominal exam: Present: soft, Non-Tender. Absent: tenderness - Extremities Exam Extremities exam: Present: normal inspection, full ROM - Expanded Upper Extremity Exam Shoulder exam: Present: normal inspection, full ROM Arm exam: Present: normal inspection, full ROM Elbow exam: Present: normal inspection, full ROM Forearm/Wrist exam: Present: normal inspection, full ROM Hand exam: Present: normal inspection, full ROM - Expanded Lower Extremity Exam Hip/Pelvis exam: Present: normal inspection, full ROM Upper leg exam: Present: normal inspection, full ROM Knee exam: Present: normal inspection, full ROM Lower leg exam: Present: normal inspection, full ROM Ankle exam: Present: normal inspection, full ROM Foot/toe exam: Present: normal inspection, full ROM - Skin Skin exam: Present: warm, dry Course Course Narrative: Patient seen and examined. 96% on 3 L. We will get an EKG chest x-ray as well as labs including DuoNeb's and steroids. - Reevaluation(s) Reevaluation #1: Patient reassessed. She still has some wheezing. She reports she does not feel as tight. She is agreeable with being admitted. Vital Signs Temperature 98.1 F 04/06/17 19:50 Pulse Rate 93 04/06/17 19:50 Respiratory Rate 18 04/06/17 19:50 Blood Pressure 121/100 04/06/17 19:50 O2 Sat by Pulse Oximetry 95 04/06/17 19:50 Temperature 98.1 F 04/06/17 19:50 Pulse Rate 81 04/06/17 21:17 Respiratory Rate 16 04/06/17 21:17 Blood Pressure 102/69 04/06/17 21:17 O2 Sat by Pulse Oximetry 97 04/06/17 21:17 Oxygen Delivery Oxygen Delivery Nasal Cannula Shortness of Breath/Dyspnea - MDM Narrative Medical decision making narrative: 57-year-old female presents to the ER due to cough and wheezing for 3 weeks. Has been treated as an outpatient twice. Most recently 1 week ago with prednisone. EKG without ischemic findings. Chest x-ray unremarkable. Troponin and BNP normal. Patient given DuoNeb treatments and Solu-Medrol here. Admitted to the hospitalist service. - Lab Data Lab results reviewed: Yes I reviewed the patient's lab results. Result diagrams: 04/06/17 21:02 04/06/17 21:02 Lab Results 04/06/17 04/06/17 04/06/17 Range/Units 21:02 21:02 21:02 WBC 8.7 (4.3-11.1) K/mcL RBC 4.60 (3.82-4.97) M/mcL Hgb 13.6 (11.5-15.4) g/dL Hct 42.2 (35.3-44.9) % MCV 91.7 (83.0-100.0) fL MCH 29.6 (28.0-33.3) pg MCHC 32.2 (31.6-35.5) g/dL RDW 14.6 H (11.5-14.5) % Plt Count 412 H (140-400) K/mcL MPV 9.6 (9.4-12.4) fL Immature Gran % 0.3 (0-4) % Seg Neutrophils % 45.9 % Lymphocytes % 34.5 % Monocytes % 7.1 % Eosinophils % 11.3 % Basophils % 0.9 % Neutrophils # 4.0 (1.6-8.9) K/mcL Lymphocytes # 3.0 (0.6-4.6) K/mcL Monocytes # 0.6 (0.0-1.3) K/mcL Eosinophils # 1.0 H (0.0-0.6) K/mcL Basophils # 0.1 (0.0-0.2) K/mcL Nucleated RBCs/100 WBC 0.2 H (0) /100 WBC Sodium 139 (136-145) mEq/L Potassium 3.8 (3.5-5.1) mEq/L Chloride 103 (98-107) mEq/L Carbon Dioxide 30 H (23-29) mEq/L BUN 5 L (6-20) mg/dL Creatinine 0.85 (0.60-1.20) mg/dL Est GFR ( Amer) > 60 (> 60) Est GFR (Non-Af Amer) > 60 (> 60) BUN/Creatinine Ratio 6 (6-26) Glucose 95 (70-105) mg/dL Calculated Osmolality 285 (280-300) Calcium 9.4 (8.6-10.3) mg/dL Troponin I < 0.03 (< 0.04) ng/mL B-Natriuretic Peptide (Less than 100) pg/mL 04/06/17 Range/Units 21:02 WBC (4.3-11.1) K/mcL RBC (3.82-4.97) M/mcL Hgb (11.5-15.4) g/dL Hct (35.3-44.9) % MCV (83.0-100.0) fL MCH (28.0-33.3) pg MCHC (31.6-35.5) g/dL RDW (11.5-14.5) % Plt Count (140-400) K/mcL MPV (9.4-12.4) fL Immature Gran % (0-4) % Seg Neutrophils % % Lymphocytes % % Monocytes % % Eosinophils % % Basophils % % Neutrophils # (1.6-8.9) K/mcL Lymphocytes # (0.6-4.6) K/mcL Monocytes # (0.0-1.3) K/mcL Eosinophils # (0.0-0.6) K/mcL Basophils # (0.0-0.2) K/mcL Nucleated RBCs/100 WBC (0) /100 WBC Sodium (136-145) mEq/L Potassium (3.5-5.1) mEq/L Chloride (98-107) mEq/L Carbon Dioxide (23-29) mEq/L BUN (6-20) mg/dL Creatinine (0.60-1.20) mg/dL Est GFR ( Amer) (> 60) Est GFR (Non-Af Amer) (> 60) BUN/Creatinine Ratio (6-26) Glucose (70-105) mg/dL Calculated Osmolality (280-300) Calcium (8.6-10.3) mg/dL Troponin I (< 0.04) ng/mL B-Natriuretic Peptide 19 (Less than 100) pg/mL - Radiology Data Radiology results reviewed: Yes I reviewed the patient's radiology results. Chest X-Ray 04/06/17 20:51 IMPRESSION: No acute disease. D/ / Justus Peña MD / Justus Pñea MD Interpreting Provider: Justus Peña MD - EKG Data EKG attestation: Yes I reviewed and interpreted this EKG. EKG results narrative: EKG demonstrates sinus rhythm with a rate of 84 bpm. Normal axis. Normal intervals. Normal R-wave progression. No gross ST elevations or depressions. No acute ischemic findings. S.B.A.R. - S.B.A.R. Situation: Demographics, MOA Background: Presenting Complaint, Relevant PMH, Meds, & Allergies Assessment: Course and respsone to treatment, Exam Concerns, Patient/Family Expectation, Pertinant Lab Results Recommendation: Barrier(s) to disposition, Recommendation based on pending studies, treatments, or consults (n) S.B.A.R. Report Given to: Dr. Corrine [place] Repor Time: 22:32
[2017-04-06 21:33] LABS: Basophils # 0.1 K/mcL (0.0-0.2); Basophils % 0.9 %; Eosinophils % 11.3 %; Hematocrit 42.2 % (35.3-44.9); Hemoglobin 13.6 g/dL (11.5-15.4); Immature Granulocytes % 0.3 % (0-4); Lymphocytes % 34.5 %; Mean Corpuscular HGB Conc 32.2 g/dL (31.6-35.5); Mean Corpuscular Hemoglobin 29.6 pg (28.0-33.3); Mean Corpuscular Volume 91.7 fL (83.0-100.0); Mean Platelet Volume 9.6 fL (9.4-12.4); Monocytes # 0.6 K/mcL (0.0-1.3); Monocytes % 7.1 %; Nucleated Red Blood Cells 0.2 /100 WBC (0); Platelet Count 412 K/mcL (140-400); Red Cell Distribution Width 14.6 % (11.5-14.5); Segmented Neutrophils % 45.9 %
[2017-04-06 21:53] LABS: BUN/Creatinine Ratio 6 (6-26); Blood Urea Nitrogen 5 mg/dL (6-20); Calcium 9.4 mg/dL (8.6-10.3); Carbon Dioxide 30 mEq/L (23-29); Chloride 103 mEq/L (98-107); Glucose 95 mg/dL (70-105); Osmolality,Calculated 285 (280-300); Potassium 3.8 mEq/L (3.5-5.1); Sodium 139 mEq/L (136-145); eGFR For African Americans > 60 (> 60); eGFR For Non-African Americans > 60 (> 60)
[2017-04-06] MEDS ORDERED: Albuterol 2.5 MG/3 ML NEBULIZER IH ONE (22:02)
[2017-04-06] MEDS ORDERED: Levofloxacin 750 MG/150 ML 750 MG/150 ML BAG IVPB ONE (22:05)
[2017-04-07] MEDS ORDERED: Naloxone 0.4 MG/ML INJ IVP PRN (03:23)
[2017-04-07] MEDS ORDERED: Acetaminophen 325 MG TABLET PO PRN (03:23)
[2017-04-07] MEDS ORDERED: Ipratropium/Albuterol Neb 3 ML IH PRN (03:26)
[2017-04-07] MEDS ORDERED: *HR* LORazepam 1 MG TABLET PO PRN (03:28)
[2017-04-07] MEDS: Ipratropium/Albuterol Neb 3 ML IH SCH ×4 (03:59→22:46)
[2017-04-07] MEDS ORDERED: Sodium Chloride for inhalation 3 ML VIAL IH PRN (05:00)
--- NOTE | 2017-04-07 05:07 | Internal Med History&Physical ---
Date of Encounter: 04/07/17 Time of Encounter: 02:00 Assessment and Plan (1) COPD exacerbation Current visit: Yes Status: Acute Pt has severe COPD exacerbation with prolonged courses. - Place pt on abx, steroid, and bronchidilator. - O2 supportive treatment, cont BiPAP at bedtime. (2) DVT prophylaxis Current visit: No Status: Acute Heparin SC (3) Acute and chronic respiratory failure Current visit: No Status: Chronic Management as above. Qualifiers: Respiratory failure complication: unspecified whether with hypoxia or hypercapnia Qualified Code(s): J96.20 - Acute and chronic respiratory failure , unspecified whether with hypoxia or hypercapnia Internal Medicine - H&P: HPI Chief complaint: SOB Admitted From: Home Plans for Post Hospital Care: Home History of present illness: Ms. Beckett is a 57 year old female with Hx of COPD on home oxygen and home BiPAP at night present to ER for SOB for weeks and gradually getting worse. Pt denies fever. She has productive cough with clear sputum. Pt denies chest pain, nausea, runny nose or muscle ache. In ER, CXR and EKG are unremarkable. Pt has wheezea. She was treated with solumendral and duoneb. Pt was admitted as COPD exacerbation. Past Med Surg Social Fam HX - Past Medical History Medical history: non-contributory Psychiatric history: anxiety - Past Surgical History Surgical History: appendectomy, hysterectomy, orthopedic, other - Social History Smoking Status: Never smoker Smokeless Tobacco Status: No Alcohol use: occasionally Drug use: none - Family History Mother Living Status: Hx Family Cardiac Disorders: Yes Hx Family Respiratory Disorders: Yes Hx Family Cancer: No Hx Family GI Disorders: Yes (colostomy form colon tear colonoscopy) Hx Family Endocrine Disorder: No Hx Family Neuromuscular Disorders: No Hx Family Neurologic Disorders: No Hx Family HEENT Disorders: No Hx Family Autoimmune Disorders: No Father Living Status: Hx Family Cardiac Disorders: Yes Hx Family Cancer: Yes (lung cancer) Internal Medicine - H&P: Meds Montelukast [Singulair] 10 mg PO HS 10/01/14 [History] Omeprazole [PriLOSEC] 20 mg PO BIDAC 10/01/14 [History] Albuterol Sulfate [Proair Hfa] 2 puff IH Q4HR PRN 06/10/15 [History] Ipratropium/Albuterol Neb [Duoneb] 3 ml IH Q4HR PRN 06/10/15 [History] Escitalopram [Lexapro] 10 mg PO DAILY 05/21/16 [History] Tiotropium [Spiriva] 18 mcg IH DAILY 05/21/16 [History] Budesonide/Formoterol 160/4.5 [Symbicort 160/4.5] 2 puff IH BIDR 04/06/17 [ History] LORazepam [Ativan] 1 mg PO HS PRN 04/06/17 [History] Oxygen 3 l NS AD 04/06/17 [History] Roflumilast [Daliresp] 500 mcg PO DAILY 04/06/17 [History] Sodium Chloride for inhalation [Sodium Chloride, Saline 3 ML] 3 ml IH QID PRN [History] 3 Allergy/AdvReac Type Severity Reaction Status Date / Time pantoprazole [From Protonix] Allergy See Verified 12/10/16 16:19 Comments All Systems PM: A 10-system review of systems was performed and is negative for pertinent findings except as documented above in the HPI. - Constitutional Vitals: Temp Pulse Resp BP Pulse Ox 98.2 F 83 23 95/60 95 04/07/17 03:48 04/07/17 03:48 04/07/17 04:36 04/07/17 03:48 04/07/17 04:36 General appearance: Present: A&O X 3, no acute distress, answers questions appropriately - Head Head exam: Present: atraumatic, normocephalic - Eye Eye exam: Present: PERRL, conjuntiva pink, sclera anicteric Pupils: Present: PERRL - Neck Neck exam general surgery: Present: supple, trachea midline. Absent: lymphadenopathy - Respiratory Respiratory exam: Present: CTAB, wheezes (diffused wheezes b/l). Absent: accessory muscle use, rales, rhonchi - Cardiovascular Cardiovascular exam: Present: RRR, +S1, +S2. Absent: diastolic murmur, gallop, rubs, systolic murmur - GI/Abdominal GI/Abdominal exam: Present: normal bowel sounds, soft, no peritoneal signs. Absent: distended, tenderness - Extremities Exam Extremities exam: Present: warm, radial pulses palpable and symmetrical. Absent : calf tenderness, cyanotic, pedal edema - Neurological Exam Neurological exam: Present: CN II-XII intact, oriented X3, no focal deficits. Absent: pronater drift, facial droop, speech deficit - Skin Skin exam: Present: dry, intact Internal Med - H&P Results - Labs CBC & Chem 7: 04/06/17 21:02 04/06/17 21:02 - EKG Data -: EKG Interpreted by Myself EKG shows normal: sinus rhythm Rate: normal
[2017-04-07] MEDS: methylPREDNISolone 125 MG/2 ML VIAL IVP SCH ×4 (05:29→23:53)
[2017-04-07] MEDS: *HR* Heparin 5,000 UNIT/ML VIAL SQ SCH ×2 (05:29→18:37)
[2017-04-07 07:04] LABS: Basophils % 0.2 %; Hemoglobin 12.8 g/dL (11.5-15.4); Immature Granulocytes % 0.5 % (0-4); Lymphocytes # 0.4 K/mcL (0.6-4.6); Mean Corpuscular HGB Conc 32.8 g/dL (31.6-35.5); Mean Corpuscular Volume 91.5 fL (83.0-100.0); Mean Platelet Volume 9.8 fL (9.4-12.4); Monocytes % 0.9 %; Neutrophils # 3.8 K/mcL (1.6-8.9); Platelet Count 354 K/mcL (140-400); Red Blood Count 4.26 M/mcL (3.82-4.97); Red Cell Distribution Width 14.6 % (11.5-14.5); Segmented Neutrophils % 88.4 %
[2017-04-07 07:28] LABS: BUN/Creatinine Ratio 9 (6-26); Blood Urea Nitrogen 8 mg/dL (6-20); Calcium 9.5 mg/dL (8.6-10.3); Carbon Dioxide 28 mEq/L (23-29); Chloride 104 mEq/L (98-107); Glucose 161 mg/dL (70-105); Magnesium 1.9 mg/dL (1.6-2.6); Osmolality,Calculated 288 (280-300); Potassium 4.4 mEq/L (3.5-5.1); Sodium 138 mEq/L (136-145); eGFR For African Americans > 60 (> 60); eGFR For Non-African Americans > 60 (> 60)
[2017-04-07] MEDS: Levofloxacin 750 MG/150 ML 750 MG/150 ML BAG IVPB SCH (09:00)
[2017-04-07] MEDS: (Roflumilast [Daliresp] 500 MCG) PO SCH (09:01)
--- NOTE | 2017-04-07 10:47 | Event Note ---
Date of Encounter: 04/07/17 Time of Encounter: 10:44 Patient is sitting up in bed on oxygen at 3 L nasal cannula which is her home level. She also utilizes CPAP overnight as she has a machine at home. She states she feels 50% better. We did discuss tobacco cessation. Also pulmonary consult as she is still pretty decreased and wheezy. She does have chronic respiratory failure. She currently does have an exacerbation of her COPD. She is in no acute distress and her vital signs are stable. She had a good response to steroids
[2017-04-07] MEDS: Tiotropium 18 MCG inhalation IH SCH (11:07)
[2017-04-07] MEDS: Budesonide/Formoterol 160/4.5 MDI IH SCH ×2 (11:07→22:47)
--- NOTE | 2017-04-07 12:24 | Pulmonology Consult Note ---
Date of Encounter: 04/07/17 Time of Encounter: 11:30 Assessment and Plan (1) Acute and chronic respiratory failure Current Visit: No Status: Chronic Patient has acute on chronic hypoxic and hypercapnic respiratory failure will continue O2 supplementation . Will continue home CPAP for night if condition worsens she might need BIPAP . Qualifiers: Respiratory failure complication: unspecified whether with hypoxia or hypercapnia Qualified Code(s): J96.20 - Acute and chronic respiratory failure , unspecified whether with hypoxia or hypercapnia (2) COPD exacerbation Current Visit: No Status: Acute To continue Bronchodilators and steroids . Patient is slowly improving will prolonged steroid taper over 2 weeks on discharge . (3) JOSH and COPD overlap syndrome Current Visit: Yes Status: Acute To continue home CPAP therapy History of Present Illness Consult date: 04/07/17 Requesting physician: Ela Marie Reason for consult: COPD (COPD exacerbation ) Chief complaint: Shortness of breadth History of present illness: 57 year old female with past medical history significant for O2 dependent COPD , JOSH with COPD overlap syndrome comes here with increased shortness of breadth , cough and sputum production failed outpatient therapy was seen by family physician didnt call our office , patient got admitted because of worsening COPD exacerbation , denies any hemoptysis , denies any chest pain or palpitations , denies any headache or any focal neurological deficits . Pulmonary was consulted for management of COPD exacerbation Past Med Surg Social Fam HX - Past Medical History Medical history: non-contributory Psychiatric history: anxiety - Past Surgical History Surgical History: appendectomy, hysterectomy, orthopedic, other - Social History Smoking Status: Never smoker Smokeless Tobacco Status: No Alcohol use: occasionally Drug use: none - Family History Mother Living Status: Hx Family Cardiac Disorders: Yes Hx Family Respiratory Disorders: Yes Hx Family Cancer: No Hx Family GI Disorders: Yes (colostomy form colon tear colonoscopy) Hx Family Endocrine Disorder: No Hx Family Neuromuscular Disorders: No Hx Family Neurologic Disorders: No Hx Family HEENT Disorders: No Hx Family Autoimmune Disorders: No Father Living Status: Hx Family Cardiac Disorders: Yes Hx Family Cancer: Yes (lung cancer) Medications and Allergies Montelukast [Singulair] 10 mg PO HS 10/01/14 [History] Omeprazole [PriLOSEC] 20 mg PO BIDAC 10/01/14 [History] Albuterol Sulfate [Proair Hfa] 2 puff IH Q4HR PRN 06/10/15 [History] Ipratropium/Albuterol Neb [Duoneb] 3 ml IH Q4HR PRN 06/10/15 [History] Escitalopram [Lexapro] 10 mg PO DAILY 05/21/16 [History] Tiotropium [Spiriva] 18 mcg IH DAILY 05/21/16 [History] Budesonide/Formoterol 160/4.5 [Symbicort 160/4.5] 2 puff IH BIDR 04/06/17 [ History] LORazepam [Ativan] 1 mg PO HS PRN 04/06/17 [History] Oxygen 3 l NS AD 04/06/17 [History] Roflumilast [Daliresp] 500 mcg PO DAILY 04/06/17 [History] Sodium Chloride for inhalation [Sodium Chloride, Saline 3 ML] 3 ml IH QID PRN [History] 3 Allergy/AdvReac Type Severity Reaction Status Date / Time pantoprazole [From Protonix] Allergy See Verified 12/10/16 16:19 Comments All Systems: All other review of systems were negative except what is mentioned in HPI Physical Examination Vital Signs: Vital Signs, Last 4 Hours Temp Pulse Resp BP Pulse Ox 04/07/17 11:22 98.2 F 91 20 112/64 98 Effort: mildly labored Auscultation: bilateral: wheezes Results - Laboratory Findings CBC and BMP: 04/07/17 05:55 04/07/17 05:55 Abnormal lab findings: Abnormal lab results RDW 14.6 % (11.5-14.5) H 04/07/17 05:55 Lymphocytes # 0.4 K/mcL (0.6-4.6) L 04/07/17 05:55 Nucleated RBCs/100 WBC 0.2 /100 WBC (0) H 04/06/17 21:02 Glucose 161 mg/dL (70-105) H 04/07/17 05:55 - Clinical Findings Intake & Output: Intake & Output 04/06/17 04/07/17 04/07/17 23:59 07:59 15:59 Intake Total 360 / 360 Balance 360 / 360 Consult Discharge Plan - Plan Referrals: Librado Andre MD [Primary Care Provider] -
[2017-04-08 00:12] LABS: Adenovirus Not Detected (Not Detect); Bordetella Pertussis Not Detected (Not Detect); Chlamydophila pneumoniae Not Detected (Not Detect); Coronavirus 229E Not Detected (Not Detect); Coronavirus HKU1 Not Detected (Not Detect); Coronavirus NL63 Not Detected (Not Detect); Coronavirus OC43 Not Detected (Not Detect); Human Metapneumovirus Not Detected (Not Detect); Human Rhinovirus/Enterovirus Not Detected (Not Detect); Influenza A Subtype 2009 H1 Not Detected (Not Detect); Influenza A Untypeable Not Detected (Not Detect); Influenza B Not Detected (Not Detect); Mycoplasma pneumoniae Not Detected (Not Detect); Parainfluenza Virus 1 Not Detected (Not Detect); Parainfluenza Virus 2 Not Detected (Not Detect); Parainfluenza Virus 3 Not Detected (Not Detect); Parainfluenza Virus 4 Not Detected (Not Detect); Respiratory Syncytial Virus Not Detected (Not Detect)
--- NOTE | 2017-04-08 01:49 | Electrocardiograph Report ---
[address] [address] Test Date: 2017-04-06 Pat Name: Mae Beckett Department: 104 Room: 3B Gender: F [employer] Operator: JOAQUÍN : 1960 Requested By: Velia Russ Order Number: [id number] Reading MD: Yeni Garces Measurements Intervals [place] Rate: 84 P: 79 [place]: 134 QRS: 78 QRSD: 72 T: 76 QT: 362 QTc: 403 Interpretive Statements SINUS RHYTHM Electronically Signed On 04-08-2017 1:47:19 EST by Yeni Garces
[2017-04-08] MEDS: Ipratropium/Albuterol Neb 3 ML IH SCH ×4 (04:49→21:05)
[2017-04-08] MEDS: *HR* Heparin 5,000 UNIT/ML VIAL SQ SCH ×2 (05:57→16:33)
[2017-04-08] MEDS: methylPREDNISolone 125 MG/2 ML VIAL IVP SCH ×3 (05:58→21:17)
[2017-04-08] MEDS: (Roflumilast [Daliresp] 500 MCG) PO SCH (09:00)
[2017-04-08] MEDS: Levofloxacin 750 MG/150 ML 750 MG/150 ML BAG IVPB SCH (09:21)
[2017-04-08] MEDS: Budesonide/Formoterol 160/4.5 MDI IH SCH ×2 (10:32→21:05)
[2017-04-08] MEDS: Tiotropium 18 MCG inhalation IH SCH (10:35)
--- NOTE | 2017-04-08 10:56 | Internal Med Progress Note ---
Date of Encounter: 04/08/17 Time of Encounter: 10:54 - Assessment and plan (1) Acute and chronic respiratory failure Current Visit: Yes Status: Acute Assessment and plan: Patient has acute on chronic hypoxemic and hypercapnic respiratory failure Will continue O2 to maintain sats greater than 88%, currently on 2 L nasal cannula Continue CPAP for night time Qualifiers: Respiratory failure complication: unspecified whether with hypoxia or hypercapnia Qualified Code(s): J96.20 - Acute and chronic respiratory failure , unspecified whether with hypoxia or hypercapnia (2) COPD exacerbation Current Visit: Yes Status: Acute Assessment and plan: Continue steroids and switch to prednisone taper over 2 weeks on discharge Continue bronchodilators Continue antibiotics Appreciate pulmonary input (3) Sleep apnea Current Visit: No Status: Chronic Assessment and plan: Continue CPAP at night Qualifiers: Sleep apnea type: unspecified type Qualified Code(s): G47.30 - Sleep apnea , unspecified (4) DVT prophylaxis Current Visit: No Status: Acute Assessment and plan: Heparin subcutaneous - Subjective Interval history: Patient is feeling 50% better. She stated she had a pretty good night. She remains on oxygen 2 L nasal cannula satting in the high 90s. She denies fever, chills, night sweats, chest pain, abdominal pain or change in bowel or bladder. She still is a little dyspneic on exertion. Still coughing with sputum production - Constitutional Vitals: Temp Pulse Resp BP Pulse Ox 98.0 F 88 18 116/67 98 04/08/17 07:35 04/08/17 07:35 04/08/17 10:35 04/08/17 07:35 04/08/17 10:35 General appearance: Present: cooperative, mild distress, A&O X 3, answers questions appropriately - Head Head exam: Present: atraumatic, normocephalic - Eye Eye exam: Present: PERRL, conjuntiva pink, sclera anicteric Pupils: Present: PERRL - Neck Neck exam general surgery: Present: supple, trachea midline. Absent: lymphadenopathy, tenderness - Respiratory Respiratory exam: Present: decreased breath sounds, prolonged expiratory phase, wheezes. Absent: accessory muscle use, rales, rhonchi Additional comments: Still remains decreased with bilateral mild wheeze much improved since yesterday 's assessment. Still a little dyspneic with exertion, able to speak in full sentences. - Cardiovascular Cardiovascular exam: Present: RRR, +S1, +S2. Absent: diastolic murmur, gallop, rubs, systolic murmur - GI/Abdominal GI/Abdominal exam: Present: normal bowel sounds, soft, no peritoneal signs. Absent: distended, tenderness - Extremities Exam Extremities exam: Present: warm, radial pulses palpable and symmetrical. Absent : calf tenderness, cyanotic, pedal edema - Neurological Exam Neurological exam: Present: CN II-XII intact, oriented X3, no focal deficits. Absent: pronater drift, facial droop, speech deficit - Skin Skin exam: Present: dry, intact, warm Internal Medicine: Result - Labs CBC & Chem 7: 04/07/17 05:55 04/07/17 05:55 Consult Discharge Plan - Plan Referrals: Librado Andre MD [Primary Care Provider] -
--- NOTE | 2017-04-08 23:56 | Pulmonology Progress Note ---
Date of Encounter: 04/09/17 Time of Encounter: 16:30 Assessment and Plan (1) Acute and chronic respiratory failure Current Visit: Yes Status: Acute To continue O2 supplementation to keep sats around 90% to assess exercise O2 needs before sending her home Qualifiers: Respiratory failure complication: unspecified whether with hypoxia or hypercapnia Qualified Code(s): J96.20 - Acute and chronic respiratory failure , unspecified whether with hypoxia or hypercapnia (2) COPD exacerbation Current Visit: No Status: Acute To continue Bronchodilators on discharge send on 2 week steroid taper with the home bronchodilator regimen (3) JOSH and COPD overlap syndrome Current Visit: Yes Status: Acute To continue home CPAP Subjective Principal diagnosis: COPD exacerbation Interval history: Patient is is feeling lot better , able to walk around the hallway getting almost to her baseline Objective PUL Vital signs: Last Vital Signs Temp 97.8 F 04/08/17 23:41 Pulse 76 04/08/17 23:41 Resp 16 04/08/17 23:41 BP 118/71 04/08/17 23:41 Pulse Ox 94 04/08/17 23:41 Auscultation: bilateral: wheezes Results - Laboratory Findings CBC and BMP: 04/07/17 05:55 04/07/17 05:55 Abnormal lab findings: Abnormal lab results RDW 14.6 % (11.5-14.5) H 04/07/17 05:55 Lymphocytes # 0.4 K/mcL (0.6-4.6) L 04/07/17 05:55 Nucleated RBCs/100 WBC 0.2 /100 WBC (0) H 04/06/17 21:02 Glucose 161 mg/dL (70-105) H 04/07/17 05:55 - Microbiology Findings Microbiology Findings: Microbiology, Last 48 Hours 04/07/17 23:29 Sputum Culture - Final Sputum 04/07/17 23:29 Legionella Antigen - Final Urine,Clean Catch Streptococcus pneumoniae Antigen (M - Final - Clinical Findings Intake & Output: Intake & Output 04/08/17 04/08/17 04/08/17 07:59 15:59 23:59 Intake Total 840 / 840 300 / 300 Output Total 850 / 850 Balance -10 / -10 300 / 300 Consult Discharge Plan - Plan Referrals: Librado Andre MD [Primary Care Provider] -
[2017-04-09] MEDS: Ipratropium/Albuterol Neb 3 ML IH SCH ×4 (03:53→21:55)
[2017-04-09] MEDS: methylPREDNISolone 125 MG/2 ML VIAL IVP SCH ×4 (04:48→21:59)
[2017-04-09] MEDS: *HR* Heparin 5,000 UNIT/ML VIAL SQ SCH ×2 (04:48→17:19)
[2017-04-09] MEDS: (Roflumilast [Daliresp] 500 MCG) PO SCH (09:07)
[2017-04-09] MEDS: Levofloxacin 750 MG/150 ML 750 MG/150 ML BAG IVPB SCH (09:07)
[2017-04-09] MEDS: Budesonide/Formoterol 160/4.5 MDI IH SCH ×2 (10:56→21:55)
[2017-04-09] MEDS: Tiotropium 18 MCG inhalation IH SCH (10:57)
--- NOTE | 2017-04-09 17:45 | Internal Med Progress Note ---
Date of Encounter: 04/09/17 Time of Encounter: 17:43 - Assessment and plan (1) Acute and chronic respiratory failure Current Visit: Yes Status: Acute Assessment and plan: Patient with acute on chronic hypoxemic and hypercapnic respiratory failure Will continue O2 to maintain sats greater than 88%, currently on 2 L nasal cannula Has home O2 and a nebulizer Continue CPAP for night time Qualifiers: Respiratory failure complication: unspecified whether with hypoxia or hypercapnia Qualified Code(s): J96.20 - Acute and chronic respiratory failure , unspecified whether with hypoxia or hypercapnia (2) COPD exacerbation Current Visit: Yes Status: Acute Assessment and plan: Continue steroids and switch to prednisone taper over 2 weeks on discharge Continue bronchodilators Continue antibiotics Appreciate pulmonary service input (3) Sleep apnea Current Visit: No Status: Chronic Assessment and plan: CPAP at night Qualifiers: Sleep apnea type: unspecified type Qualified Code(s): G47.30 - Sleep apnea , unspecified (4) DVT prophylaxis Current Visit: No Status: Acute Assessment and plan: Heparin subcut - Subjective Interval history: Patient is feeling 99% better. She stated she had a pretty good night. She remains on oxygen 2 L nasal cannula satting in the high 90s. She denies fever, chills, night sweats, chest pain, abdominal pain or change in bowel or bladder. She is a not dyspneic on exertion. Still coughing with sputum production and very mild exp wheeze - Constitutional Vitals: Temp Pulse Resp BP Pulse Ox 98.6 F 95 16 112/67 97 04/09/17 15:31 04/09/17 15:31 04/09/17 15:39 04/09/17 15:31 04/09/17 15:39 General appearance: Present: cooperative, mild distress, A&O X 3, pleasant, answers questions appropriately - Head Head exam: Present: atraumatic, normocephalic - Eye Eye exam: Present: PERRL, conjuntiva pink, sclera anicteric Pupils: Present: PERRL - Neck Neck exam general surgery: Present: supple, trachea midline. Absent: lymphadenopathy - Respiratory Respiratory exam: Present: CTAB. Absent: accessory muscle use, rales, rhonchi, wheezes - Cardiovascular Cardiovascular exam: Present: RRR, +S1, +S2. Absent: diastolic murmur, gallop, rubs, systolic murmur - GI/Abdominal GI/Abdominal exam: Present: normal bowel sounds, soft, no peritoneal signs. Absent: distended, tenderness - Extremities Exam Extremities exam: Present: warm, radial pulses palpable and symmetrical. Absent : calf tenderness, cyanotic, pedal edema - Neurological Exam Neurological exam: Present: CN II-XII intact, oriented X3, no focal deficits. Absent: pronater drift, facial droop, speech deficit - Skin Skin exam: Present: dry, intact, warm Internal Medicine: Result - Labs CBC & Chem 7: 04/07/17 05:55 04/07/17 05:55 Consult Discharge Plan - Plan Referrals: Librado Andre MD [Primary Care Provider] - 04/15/17 1:30 pm
[2017-04-10] MEDS: Ipratropium/Albuterol Neb 3 ML IH SCH ×2 (03:44→10:45)
[2017-04-10] MEDS: *HR* Heparin 5,000 UNIT/ML VIAL SQ SCH (04:51)
[2017-04-10] MEDS: methylPREDNISolone 125 MG/2 ML VIAL IVP SCH (04:52)
[2017-04-10 07:44] VITALS: BP 112/71
[2017-04-10] MEDS: Levofloxacin 750 MG/150 ML 750 MG/150 ML BAG IVPB SCH (08:29)
[2017-04-10] MEDS: (Roflumilast [Daliresp] 500 MCG) PO SCH (08:30)
--- NOTE | 2017-04-10 09:53 | Discharge Summary ---
- NOTES TO OUTPATIENT PROVIDER Notes to Outpatient Provider: to f/u with pulmology and PCP, sent on extended prednisone taper Orders not resulted at time of discharge: Pending orders 04/07/17 10:03 Mycoplasma pneumoniae IgG IgM Routine Date of Encounter: 04/10/17 Time of Encounter: 09:48 - Discharge Diagnosis (1) Acute and chronic respiratory failure Priority: Primary Status: Acute Comments: Patient with acute on chronic hypoxemic and hypercapnic respiratory failure Will continue O2 to maintain sats greater than 88%, currently on 2 L nasal cannula, has home oxygen and is at current level Has home nebulizer Continue CPAP for night time, patient has cpap at home and will resume as previous f/u with pulmology as scheduled Qualifiers: Respiratory failure complication: hypoxia and hypercapnia Qualified Code(s) : J96.21 - Acute and chronic respiratory failure with hypoxia; J96.22 - Acute and chronic respiratory failure with hypercapnia; J96.22 - Acute and chronic respiratory failure with hypercapnia; J96.22 - Acute and chronic respiratory failure with hypercapnia (2) COPD exacerbation Priority: Primary Status: Acute Comments: prednisone taper over 2 weeks Continue bronchodilators Continue antibiotics Appreciate pulmonary service input (3) Sleep apnea Priority: Secondary Status: Chronic Comments: continue CPAP as before admission Qualifiers: Sleep apnea type: unspecified type Qualified Code(s): G47.30 - Sleep apnea , unspecified Hospital course: Ms. Beckett is a 57 year old female with history of COPD on home oxygen with nebulizer. Also history of sleep apnea with a home BiPAP. She presented to the ER with shortness of breath developing going on for weeks and gradually got to the point that she felt she could not breathe. She denied any chest pain nausea runny nose or muscle aches. Chest x-ray and EKG were unremarkable she was very wheezy and bronchospastic. She was started on IV steroids, Ela nebs [id number] and when necessary. Also obtained a pulmonary consult. Continued CPAP here in the hospital. Patient feels back to her baseline today was actually up walking the halls with minimal shortness of breath. She is on chronic O2 at home at 2 L and is now at her baseline. Discharge discussed with: patient, family, nurse - Time Spent with Patient Total time spent providing and/or coordinating discharge services: Less than 30 minutes - Discharge Medications Prescriptions: predniSONE [PredniSONE] 10 mg PO DAILY 16 Days #40 tablet Home Medications: Montelukast [Singulair] 10 mg PO HS 10/01/14 [History] Omeprazole [PriLOSEC] 20 mg PO BIDAC 10/01/14 [History] Albuterol Sulfate [Proair Hfa] 2 puff IH Q4HR PRN 06/10/15 [History] Ipratropium/Albuterol Neb [Duoneb] 3 ml IH Q4HR PRN 06/10/15 [History] Escitalopram [Lexapro] 10 mg PO DAILY 05/21/16 [History] Tiotropium [Spiriva] 18 mcg IH DAILY 05/21/16 [History] Budesonide/Formoterol 160/4.5 [Symbicort 160/4.5] 2 puff IH BIDR 04/06/17 [ History] LORazepam [Ativan] 1 mg PO HS PRN 04/06/17 [History] Oxygen 3 l NS AD 04/06/17 [History] Roflumilast [Daliresp] 500 mcg PO DAILY 04/06/17 [History] Sodium Chloride for inhalation [Sodium Chloride, Saline 3 ML] 3 ml IH QID PRN [History] predniSONE [PredniSONE] 10 mg PO DAILY 16 Days #40 tablet 04/10/17 [Rx] Allergies/Adverse Reactions: 3 Allergy/AdvReac Type Severity Reaction Status Date / Time pantoprazole [From Protonix] Allergy See Verified 12/10/16 16:19 Comments Date of admission: 04/07/17 03:23 Primary care physician: Librado Andre MD Consults: 04/07/17 09:52 Consult to Pulmonology [CONS] Routine Consulting Provider: [facility] Reason for Consult: copd ex Time Notified: 09:52 Call Completed: Yes Discharging clinician: Ela Marie Anticipated date of discharge: 04/10/17 - Constitutional Vitals: Temp Pulse Resp BP Pulse Ox 98.2 F 87 17 112/71 99 04/10/17 07:44 04/10/17 07:44 04/10/17 07:44 04/10/17 07:44 04/10/17 07:44 General appearance: Present: cooperative, A&O X 3, pleasant, no acute distress, answers questions appropriately - Head Head exam: Present: atraumatic, normocephalic - Eye Eye exam: Present: PERRL, conjuntiva pink, sclera anicteric Pupils: Present: PERRL - Neck Neck exam general surgery: Present: supple, trachea midline. Absent: lymphadenopathy - Respiratory Respiratory exam: Present: decreased breath sounds, prolonged expiratory phase, wheezes. Absent: accessory muscle use, rales, rhonchi Additional comments: Very mild expiratory wheeze - Cardiovascular Cardiovascular exam: Present: RRR, +S1, +S2. Absent: diastolic murmur, gallop, rubs, systolic murmur - GI/Abdominal GI/Abdominal exam: Present: normal bowel sounds, soft, no peritoneal signs. Absent: distended, tenderness - Extremities Exam Extremities exam: Present: warm, radial pulses palpable and symmetrical. Absent : calf tenderness, cyanotic, pedal edema - Neurological Exam Neurological exam: Present: CN II-XII intact, oriented X3, no focal deficits. Absent: pronater drift, facial droop, speech deficit - Skin Skin exam: Present: dry, intact, warm - Patient Status Disposition: Home, Self-Care Condition: Good Functional capacity at discharge: independent ambulation Overall status at discharge: patient is back to baseline - Discharge Instructions Follow Up With: Librado Andre MD [Primary Care Provider] - 04/15/17 1:30 pm - Diet and Activity Activity: increase activity as tolerated, resume usual activities as tolerated Diet: advance to your usual diet
[2017-04-10] MEDS: Budesonide/Formoterol 160/4.5 MDI IH SCH (10:45)
[2017-04-10] MEDS: Tiotropium 18 MCG inhalation IH SCH (10:45)
[2017-04-13 08:57] LABS: Mycoplasma pneumoniae IgG 0.36 U/L (<=0.09)
== END 2017-04-10 10:58 | disposition home or self-care (01) | DRG 190 ==
LOC: EMEROO 19:48 → 3BNU 19:48
PROVIDERS: ADMIT Internal Medicine; ATTEND Registered Nurse

== ENCOUNTER 2017-05-12 15:24 | Observation (INO) ==
[2017-05-12] MEDS ORDERED: Ipratropium/Albuterol Neb 3 ML IH ONE (15:38)
[2017-05-12] MEDS ORDERED: methylPREDNISolone 125 MG/2 ML VIAL IVP ONE (15:38)
--- NOTE | 2017-05-12 15:44 | Emergency Department Note ---
Disposition Clinical Impression: Acute exacerbation of chronic obstructive airways disease Disposition: Admitted As Inpatient Condition: Fair Referrals: Librado Andre MD [Primary Care Provider] - Forms: ED Satisfaction Letter Time of Disposition: 16:39 SOB HPI - General Chief Complaint: ED Shortness of Breath/Dyspnea Stated Complaint: KALIA Time Seen by Provider: 05/12/17 15:32 Source: patient Mode of arrival: ambulatory Limitations: no limitations Nursing Notes Reviewed: Yes Vital Signs Reviewed: Yes - History of Present Illness 57-year-old female with history COPD comes in complaining of increasing shortness of breath. Saw her family doctor on Thursday started on steroids antibiotics as gotten worse. He no longer smokes. He presents now for evaluation. Pt Subjective Complaint: shortness of breath, cough Onset (ago): day(s) Context: recent illness Severity: moderate Consistency/Duration: constant Improves with: nothing Worsens with: exertion Known history of: COPD Associated symptoms: Reports: cough Treatment prior to arrival: oxygen Cough present: Yes Cough Description: Involuntary Cough Frequency: Intermittent - Related Data Home Medications Medication Instructions Recorded Confirmed Montelukast [Singulair] 10 mg PO HS 10/01/14 05/12/17 Omeprazole [PriLOSEC] 20 mg PO BIDAC 10/01/14 05/12/17 Albuterol Sulfate [Proair Hfa] 2 puff IH Q4HR PRN 06/10/15 05/12/17 Ipratropium/Albuterol Neb [Duoneb] 3 ml IH QID 06/10/15 05/12/17 Escitalopram [Lexapro] 10 mg PO DAILY 05/21/16 05/12/17 Tiotropium [Spiriva] 18 mcg IH DAILY 05/21/16 05/12/17 Budesonide/Formoterol 160/4.5 2 puff IH BIDR 04/06/17 05/12/17 [Symbicort 160/4.5] LORazepam [Ativan] 1 mg PO HS PRN 04/06/17 05/12/17 Oxygen 3 l NS AD 04/06/17 05/12/17 Roflumilast [Daliresp] 500 mcg PO DAILY 04/06/17 05/12/17 Sodium Chloride for inhalation 3 ml IH QID PRN 04/06/17 05/12/17 [Sodium Chloride, Saline 3 ML] levoFLOXacin [Levofloxacin] 500 mg PO DAILY 05/12/17 05/12/17 predniSONE [PredniSONE] See Taper PO DAILY 05/12/17 05/12/17 Allergies Allergy/AdvReac Type Severity Reaction Status Date / Time pantoprazole [From Protonix] Allergy See Verified 05/12/17 15:32 Comments All systems ED: reviewed and negative except as stated. Constitutional: Denies: fever, chills, weakness, weight change Eyes: Denies: eye pain, eye discharge, vision change ENT ED: Denies: ear pain, throat pain, dental pain, hearing loss, epistaxis, congestion, dysphagia Cardiovascular: Denies: chest pain, palpitations, dyspnea on exertion, edema, syncope Respiratory: Reports: cough, dyspnea, wheezes. Denies: hemoptysis, stridor Gastrointestinal: Denies: abdominal pain, nausea, vomiting, diarrhea, constipation, hematemesis, melena, hematochezia Genitourinary: Denies: dysuria, frequency, hematuria, discharge Musculoskeletal: Denies: back pain, neck pain, arthralgia, myalgia Integumentary: Denies: rash, abrasion, lesions Neurological: Denies: headache, weakness, numbness, paresthesias, confusion, abnormal gait, vertigo Psychiatric: Denies: anxiety, depression, suicidal thoughts, homicidal thoughts , auditory hallucinations, visual hallucinations Endocrine: Denies: fatigue Hematological/Lymphatic: Denies: easy bleeding, easy bruising Allergic/Immunologic: Denies: facial swelling, urticaria Past Medical History - Past Medical History Medical history: Reports: COPD Surgical history: Reports: appendectomy, hysterectomy, orthopedic, other Psychiatric history: Reports: anxiety SPEECH PROFESSOR history: Reports: no SPEECH PROFESSOR history - Social History Smoking Status: Former smoker Smokeless Tobacco Status: No Alcohol use: Reports: occasionally Drug use: Reports: none Physical Exam - General Limitations: no limitations General appearance: alert - Head Head exam: atraumatic, normocephalic, normal inspection - Eye Eye exam: Present: normal appearance, PERRL, EOMI - ENT ENT exam: normal exam, normal oropharynx, mucous membranes moist - Neck Neck exam: Present: normal inspection, full ROM, trachea midline - Chest Chest inspection: Present: normal inspection, symmetric chest wall rise - Respiratory Respiratory exam: Present: wheezes - Cardiovascular Cardiovascular exam: Present: regular rate, normal rhythm, normal heart sounds - Abdominal Exam Abdominal exam: Present: soft, Non-Tender. Absent: tenderness, distention, guarding, rebound, rigidity - Extremities Exam Extremities exam: Present: normal inspection, full ROM. Absent: tenderness, pedal edema - Expanded Lower Extremity Exam Neurovascular/Tendon exam: Absent: motor deficit, sensory deficit, tendon deficit Gait: not tested/not observed - Back Exam Back exam: Present: normal inspection, full ROM. Absent: tenderness - Neurological Exam Neurological exam: Present: alert, oriented X3 - Psychiatric Psychiatric exam: Present: normal affect, normal mood - Skin Skin exam: Present: warm, dry, intact, normal color Course - Reevaluation(s) Reevaluation #1: Patient with a history COPD with increasing shortness of breath. Chest x-ray is clear no pneumonia. Time: 17:46 - Consultations Consultation #1: Discussed with , it. Time: 17:46 Vital Signs Temperature 98.0 F 05/12/17 15:29 Pulse Rate 91 05/12/17 15:29 Respiratory Rate 20 05/12/17 15:29 Blood Pressure 129/85 05/12/17 15:29 O2 Sat by Pulse Oximetry 98 05/12/17 15:29 Temperature 98.0 F 05/12/17 15:29 Pulse Rate 78 05/12/17 17:41 Respiratory Rate 18 05/12/17 17:41 Blood Pressure 125/81 05/12/17 17:41 O2 Sat by Pulse Oximetry 98 05/12/17 17:41 Oxygen Delivery Oxygen Delivery Nasal Cannula Shortness of Breath/Dyspnea - Lab Data Lab results reviewed: Yes I reviewed the patient's lab results. Result diagrams: 05/12/17 15:38 05/12/17 15:38 Lab Results 05/12/17 05/12/17 05/12/17 Range/Units 15:38 15:38 15:38 WBC 9.9 (4.3-11.1) K/mcL RBC 4.40 (3.82-4.97) M/mcL Hgb 13.6 (11.5-15.4) g/dL Hct 40.3 (35.3-44.9) % MCV 91.6 (83.0-100.0) fL MCH 30.9 (28.0-33.3) pg MCHC 33.7 (31.6-35.5) g/dL RDW 15.1 H (11.5-14.5) % Plt Count 445 H (140-400) K/mcL MPV 9.4 (9.4-12.4) fL Immature Gran % 1.4 (0-4) % Seg Neutrophils % 85.7 % Lymphocytes % 9.8 % Monocytes % 2.8 % Eosinophils % 0.1 % Basophils % 0.2 % Neutrophils # 8.5 (1.6-8.9) K/mcL Lymphocytes # 1.0 (0.6-4.6) K/mcL Monocytes # 0.3 (0.0-1.3) K/mcL Eosinophils # 0.0 (0.0-0.6) K/mcL Basophils # 0.0 (0.0-0.2) K/mcL Sodium 137 (136-145) mEq/L Potassium 3.7 (3.5-5.1) mEq/L Chloride 103 (98-107) mEq/L Carbon Dioxide 29 (23-29) mEq/L BUN 12 (6-20) mg/dL Creatinine 0.95 (0.60-1.20) mg/dL Est GFR ( Amer) > 60 (> 60) Est GFR (Non-Af Amer) > 60 (> 60) BUN/Creatinine Ratio 13 (6-26) Glucose 169 H (70-105) mg/dL Calculated Osmolality 288 (280-300) Lactic Acid 2.8 H (0.5-2.2) mmol/L Calcium 9.9 (8.6-10.3) mg/dL Troponin I < 0.03 (< 0.04) ng/mL B-Natriuretic Peptide (Less than 100) pg/mL 05/12/17 Range/Units 15:38 WBC (4.3-11.1) K/mcL RBC (3.82-4.97) M/mcL Hgb (11.5-15.4) g/dL Hct (35.3-44.9) % MCV (83.0-100.0) fL MCH (28.0-33.3) pg MCHC (31.6-35.5) g/dL RDW (11.5-14.5) % Plt Count (140-400) K/mcL MPV (9.4-12.4) fL Immature Gran % (0-4) % Seg Neutrophils % % Lymphocytes % % Monocytes % % Eosinophils % % Basophils % % Neutrophils # (1.6-8.9) K/mcL Lymphocytes # (0.6-4.6) K/mcL Monocytes # (0.0-1.3) K/mcL Eosinophils # (0.0-0.6) K/mcL Basophils # (0.0-0.2) K/mcL Sodium (136-145) mEq/L Potassium (3.5-5.1) mEq/L Chloride (98-107) mEq/L Carbon Dioxide (23-29) mEq/L BUN (6-20) mg/dL Creatinine (0.60-1.20) mg/dL Est GFR ( Amer) (> 60) Est GFR (Non-Af Amer) (> 60) BUN/Creatinine Ratio (6-26) Glucose (70-105) mg/dL Calculated Osmolality (280-300) Lactic Acid (0.5-2.2) mmol/L Calcium (8.6-10.3) mg/dL Troponin I (< 0.04) ng/mL B-Natriuretic Peptide 33 (Less than 100) pg/mL - Radiology Data Radiology results reviewed: Yes I reviewed the patient's radiology results. - EKG Data EKG attestation: Yes I reviewed and interpreted this EKG. EKG shows normal: Reports: sinus rhythm Rate: Reports: normal Rhythm: Reports: NSR Interpretation: Reports: no acute changes
[2017-05-12 15:58] LABS: Basophils % 0.2 %; Eosinophils % 0.1 %; Hematocrit 40.3 % (35.3-44.9); Hemoglobin 13.6 g/dL (11.5-15.4); Immature Granulocytes % 1.4 % (0-4); Lymphocytes % 9.8 %; Mean Corpuscular HGB Conc 33.7 g/dL (31.6-35.5); Mean Corpuscular Hemoglobin 30.9 pg (28.0-33.3); Mean Corpuscular Volume 91.6 fL (83.0-100.0); Mean Platelet Volume 9.4 fL (9.4-12.4); Monocytes # 0.3 K/mcL (0.0-1.3); Monocytes % 2.8 %; Neutrophils # 8.5 K/mcL (1.6-8.9); Platelet Count 445 K/mcL (140-400); Red Cell Distribution Width 15.1 % (11.5-14.5); Segmented Neutrophils % 85.7 %
[2017-05-12 16:20] LABS: BUN/Creatinine Ratio 13 (6-26); Blood Urea Nitrogen 12 mg/dL (6-20); Calcium 9.9 mg/dL (8.6-10.3); Carbon Dioxide 29 mEq/L (23-29); Chloride 103 mEq/L (98-107); Glucose 169 mg/dL (70-105); Osmolality,Calculated 288 (280-300); Potassium 3.7 mEq/L (3.5-5.1); Sodium 137 mEq/L (136-145); eGFR For African Americans > 60 (> 60); eGFR For Non-African Americans > 60 (> 60)
[2017-05-12 16:21] LABS: Troponin I < 0.03 ng/mL (< 0.04)
[2017-05-12] MEDS ORDERED: 0.9 % Sodium Chloride 1,000 ML IVC ONE (16:25)
--- NOTE | 2017-05-12 17:27 | Internal Med History&Physical ---
Date of Encounter: 05/12/17 Time of Encounter: 17:47 Assessment and Plan (1) Acute exacerbation of chronic obstructive airways disease Current visit: Yes Status: Acute continue duonebs q4 LITA, albuterol q2hr prn, levaquin, prednisone Continue O2 supplementation, already on home dose of 3L at time of review (2) DVT prophylaxis Current visit: Yes Status: Acute heparin SQ (3) GERD (gastroesophageal reflux disease) Current visit: Yes Status: Chronic continue home meds Qualifiers: Esophagitis presence: without esophagitis Qualified Code(s): K21.9 - Gastro -esophageal reflux disease without esophagitis (4) History of DVT (deep vein thrombosis) Current visit: Yes Status: Chronic Hx of chronic, not on any meds at home (5) Sleep apnea Current visit: Yes Status: Chronic CPAP at night Qualifiers: Sleep apnea type: unspecified type Qualified Code(s): G47.30 - Sleep apnea , unspecified (6) Lactic acidosis Current visit: Yes Status: Acute Received IF in ER Possibly due to hypoxia Follow repeat levels (7) Chronic respiratory failure Current visit: Yes Status: Chronic continue home dose of O2 Qualifiers: Respiratory failure complication: hypoxia Qualified Code(s): J96.11 - Chronic respiratory failure with hypoxia Internal Medicine - H&P: HPI Chief complaint: Shortness of breath Admitted From: Home Plans for Post Hospital Care: Home History of present illness: Ms. Beckett is a 57 year old female with hx of chronic resp failure on home O2, COPD , former smoker She has been having shortness of breath for several days and presented to her PCP, who had started her on levaquin and prednisone, she however continued to wheeze and continued to require increasing O2 at home, hence her decision to present to the ER. She reports worsening cough with no phlegm production, no fever or chills, no orthopnea, no PND, leg swelling, she denies chest pain and abdominal pain. She denies changes in bowel or urinary habits On eval in the ER she is still wheeing diffusely but not in any form of resp distress and saturationg 98-100% on 4L of O2 which was turned down to her home dose of 2-3L Work up is unremarkable except for lactic acidosis Past Med Surg Social Fam HX - Past Medical History Medical history: COPD Psychiatric history: anxiety - Past Surgical History Surgical History: appendectomy, hysterectomy, orthopedic, other - Social History Smoking Status: Former smoker Smokeless Tobacco Status: No Alcohol use: occasionally Drug use: none - Family History Mother Living Status: Hx Family Cardiac Disorders: Yes Hx Family Respiratory Disorders: Yes Hx Family Cancer: No Hx Family GI Disorders: Yes (colostomy form colon tear colonoscopy) Hx Family Endocrine Disorder: No Hx Family Neuromuscular Disorders: No Hx Family Neurologic Disorders: No Hx Family HEENT Disorders: No Hx Family Autoimmune Disorders: No Father Living Status: Hx Family Cardiac Disorders: Yes Hx Family Cancer: Yes (lung cancer) Internal Medicine - H&P: Meds Montelukast [Singulair] 10 mg PO HS 10/01/14 [History] Omeprazole [PriLOSEC] 20 mg PO BIDAC 10/01/14 [History] Albuterol Sulfate [Proair Hfa] 2 puff IH Q4HR PRN 06/10/15 [History] Ipratropium/Albuterol Neb [Duoneb] 3 ml IH QID 06/10/15 [History] Escitalopram [Lexapro] 10 mg PO DAILY 05/21/16 [History] Tiotropium [Spiriva] 18 mcg IH DAILY 05/21/16 [History] Budesonide/Formoterol 160/4.5 [Symbicort 160/4.5] 2 puff IH BIDR 04/06/17 [ History] LORazepam [Ativan] 1 mg PO HS PRN 04/06/17 [History] Oxygen 3 l NS AD 04/06/17 [History] Roflumilast [Daliresp] 500 mcg PO DAILY 04/06/17 [History] Sodium Chloride for inhalation [Sodium Chloride, Saline 3 ML] 3 ml IH QID PRN [History] levoFLOXacin [Levofloxacin] 500 mg PO DAILY 05/12/17 [History] predniSONE [PredniSONE] See Taper PO DAILY 05/12/17 [History] 3 Allergy/AdvReac Type Severity Reaction Status Date / Time pantoprazole [From Protonix] Allergy See Verified 05/12/17 15:32 Comments All Systems PM: A 10-system review of systems was performed and is negative for pertinent findings except as documented above in the HPI. - Constitutional Constitutional: no chills, no fever(s), no night sweats - EENT Eyes: no change in vision, no discharge, no pain, no photophobia Ears: no ear discharge, no ear pain, no tinnitus Nose, mouth and throat: no dysphagia, no nasal discharge, no neck pain, no sore throat - Cardiovascular Cardiovascular ROS IM: no chest pain, no diaphoresis, no dyspnea, no lightheadedness, no palpitations, no syncope - Respiratory Respiratory: as per HPI - Gastrointestinal Gastrointestinal: no abdominal pain, no diarrhea, no hematemesis, no hematochezia, no melena, no nausea, no vomiting - Genitourinary Genitourinary: no change in urinary stream, no dysuria, no flank pain, no hematuria - Musculoskeletal Musculoskeletal ROS IM: no numbness, no tingling - Integumentary Integumentary IM: no rash, no unusual bruising - Neurological Neurological ROS: no confusion, no convulsions, no focal weakness, no numbness, no tingling, no tremor(s) - Hematologic/Lymphatic Hematologic/Lymphatic: no easy bruising - Constitutional Vitals: Temp Pulse Resp BP Pulse Ox 98.0 F 91 16 129/85 98 05/12/17 15:29 05/12/17 15:29 05/12/17 15:45 05/12/17 15:29 05/12/17 15:45 General appearance: Present: A&O X 3, pleasant, no acute distress - Head Head exam: Present: atraumatic, normocephalic - Eye Eye exam: Present: PERRL, conjuntiva pink, sclera anicteric Pupils: Present: PERRL - Neck Neck exam general surgery: Present: supple, trachea midline. Absent: lymphadenopathy - Respiratory Respiratory exam: Present: wheezes. Absent: rales, rhonchi, stridor - Cardiovascular Cardiovascular exam: Present: RRR, +S1, +S2. Absent: diastolic murmur, gallop, rubs, systolic murmur - GI/Abdominal GI/Abdominal exam: Present: normal bowel sounds, soft, no peritoneal signs. Absent: distended, tenderness - Extremities Exam Extremities exam: Present: warm, radial pulses palpable and symmetrical. Absent : calf tenderness, cyanotic, pedal edema - Neurological Exam Neurological exam: Present: alert, CN II-XII intact, oriented X3, no focal deficits. Absent: pronater drift, facial droop, speech deficit - Skin Skin exam: Present: dry, intact Internal Med - H&P Results - Labs CBC & Chem 7: 05/12/17 15:38 05/12/17 15:38 Labs: Short CBC 05/12/17 Range/Units 15:38 WBC 9.9 (4.3-11.1) K/mcL Hgb 13.6 (11.5-15.4) g/dL Hct 40.3 (35.3-44.9) % Plt Count 445 H (140-400) K/mcL Neutrophils # 8.5 (1.6-8.9) K/mcL BMP 05/12/17 15:38 Sodium 137 Potassium 3.7 Chloride 103 Carbon Dioxide 29 BUN 12 Creatinine 0.95 Glucose 169 H Calcium 9.9 Cardiac Enzymes 05/12/17 Range/Units 15:38 Troponin I < 0.03 (< 0.04) ng/mL - Impressions ITS Impressions Chest X-Ray 05/12/17 15:39 IMPRESSION: No acute cardiopulmonary process. Mild emphysema. D/ / 05/12/2017 16:37:27 Vito Sumner MD / vj Interpreting Provider: Vito Sumner MD
[2017-05-12] MEDS ORDERED: Acetaminophen 325 MG TABLET PO PRN (17:48)
[2017-05-12] MEDS ORDERED: *HR* OxyCODONE Immed Rel 5 MG TABLET PO PRN (17:48)
[2017-05-12] MEDS ORDERED: Naloxone 0.4 MG/ML INJ IVP PRN (17:48)
[2017-05-12] MEDS ORDERED: traMADol 50 MG TABLET PO PRN (17:48)
[2017-05-12] MEDS ORDERED: levoFLOXacin 500 MG TABLET PO ONE (17:50)
[2017-05-12] MEDS ORDERED: Albuterol 2.5 MG/3 ML NEBULIZER IH PRN (17:51)
[2017-05-12] MEDS ORDERED: *HR* LORazepam 1 MG TABLET PO PRN (17:53)
[2017-05-12] MEDS ORDERED: GuaiFENesin/Dextromethorphan TABLET PO PRN (18:00)
[2017-05-12] MEDS: Ipratropium/Albuterol Neb 3 ML IH SCH ×2 (19:28→23:19)
[2017-05-13] MEDS: Ipratropium/Albuterol Neb 3 ML IH SCH ×6 (03:40→23:52)
[2017-05-13 04:34] LABS: Basophils % 0.3 %; Eosinophils % 0.1 %; Hematocrit 35.7 % (35.3-44.9); Immature Granulocytes % 2.6 % (0-4); Lymphocytes % 10.1 %; Mean Corpuscular HGB Conc 32.8 g/dL (31.6-35.5); Mean Corpuscular Hemoglobin 30.1 pg (28.0-33.3); Mean Corpuscular Volume 91.8 fL (83.0-100.0); Mean Platelet Volume 9.5 fL (9.4-12.4); Monocytes # 0.4 K/mcL (0.0-1.3); Monocytes % 4.3 %; Neutrophils # 8.4 K/mcL (1.6-8.9); Platelet Count 389 K/mcL (140-400); Red Blood Count 3.89 M/mcL (3.82-4.97); Red Cell Distribution Width 15.1 % (11.5-14.5); Segmented Neutrophils % 82.6 %
[2017-05-13 04:43] LABS: Hemoglobin 11.7 g/dL (11.5-15.4)
[2017-05-13 04:50] LABS: BUN/Creatinine Ratio 21 (6-26); Blood Urea Nitrogen 17 mg/dL (6-20); Calcium 8.8 mg/dL (8.6-10.3); Carbon Dioxide 29 mEq/L (23-29); Chloride 106 mEq/L (98-107); Glucose 131 mg/dL (70-105); Osmolality,Calculated 293 (280-300); Potassium 4.5 mEq/L (3.5-5.1); Sodium 140 mEq/L (136-145); eGFR For African Americans > 60 (> 60); eGFR For Non-African Americans > 60 (> 60)
[2017-05-13] MEDS: predniSONE 20 MG TABLET PO SCH (09:17)
[2017-05-13] MEDS: (Roflumilast [Daliresp] 500 MCG) PO SCH (09:18)
[2017-05-13] MEDS: levoFLOXacin 500 MG TABLET PO SCH (09:18)
--- NOTE | 2017-05-13 11:22 | Internal Med Progress Note ---
Date of Encounter: 05/13/17 Time of Encounter: 11:20 - Assessment and plan (1) Acute exacerbation of chronic obstructive airways disease Current Visit: Yes Status: Acute Assessment and plan: No wheezing today continue with DuoNeb's Levaquin and prednisone Continue with O2 -currently on home oxygen treatment at 3 L (2) Lactic acidosis Current Visit: No Status: Resolved Assessment and plan: 1 patient received IV fluids repeat lactate trending [id number] likely related to hypoxia (3) Chronic respiratory failure Current Visit: Yes Status: Chronic Assessment and plan: Secondary to COPD exacerbation. We will continue with oxygen maintaining SPO2 greater than 92% Qualifiers: Respiratory failure complication: hypoxia Qualified Code(s): J96.11 - Chronic respiratory failure with hypoxia (4) GERD (gastroesophageal reflux disease) Current Visit: Yes Status: Chronic Assessment and plan: Antinea with home medications Qualifiers: Esophagitis presence: without esophagitis Qualified Code(s): K21.9 - Gastro -esophageal reflux disease without esophagitis (5) History of DVT (deep vein thrombosis) Current Visit: Yes Status: Chronic Assessment and plan: This is chronic [place] medications at home we will place on heparin subcutaneous (6) Sleep apnea Current Visit: Yes Status: Chronic Assessment and plan: CPAP at night Qualifiers: Sleep apnea type: unspecified type Qualified Code(s): G47.30 - Sleep apnea , unspecified (7) DVT prophylaxis Current Visit: No Status: Chronic Assessment and plan: Heparin subcutaneous - Subjective Interval history: Denies any cough has wheezing and SOB particularly on ambulation. Encourage to sit up in chair. - Constitutional Vitals: Temp Pulse Resp BP Pulse Ox 98.0 F 84 16 133/74 98 05/13/17 11:02 05/13/17 11:02 05/13/17 11:02 05/13/17 07:02 05/13/17 11:02 General appearance: Present: A&O X 3, pleasant, no acute distress - Head Head exam: Present: atraumatic, normocephalic - Eye Eye exam: Present: PERRL, conjuntiva pink, sclera anicteric Pupils: Present: PERRL - Neck Neck exam general surgery: Present: supple, trachea midline. Absent: lymphadenopathy - Respiratory Respiratory exam: Present: wheezes. Absent: accessory muscle use, rales, rhonchi - Cardiovascular Cardiovascular exam: Present: RRR, +S1, +S2. Absent: diastolic murmur, gallop, rubs, systolic murmur - GI/Abdominal GI/Abdominal exam: Present: normal bowel sounds, soft, no peritoneal signs. Absent: distended, tenderness - Extremities Exam Extremities exam: Present: warm, radial pulses palpable and symmetrical. Absent : calf tenderness, cyanotic, pedal edema - Neurological Exam Neurological exam: Present: CN II-XII intact, oriented X3, no focal deficits. Absent: pronater drift, facial droop, speech deficit - Skin Skin exam: Present: dry, intact Internal Medicine: Result - Labs CBC & Chem 7: 05/13/17 04:00 05/13/17 04:00 Labs: Short CBC 05/13/17 Range/Units 04:00 WBC 10.2 (4.3-11.1) K/mcL Hgb 11.7 D (11.5-15.4) g/dL Hct 35.7 (35.3-44.9) % Plt Count 389 (140-400) K/mcL Neutrophils # 8.4 (1.6-8.9) K/mcL BMP 05/13/17 04:00 Sodium 140 Potassium 4.5 Chloride 106 Carbon Dioxide 29 BUN 17 Creatinine 0.82 Glucose 131 H Calcium 8.8 Consult Discharge Plan - Plan Referrals: Librado Andre MD [Primary Care Provider] - 05/20/17 1:30 pm
[2017-05-14] MEDS: Ipratropium/Albuterol Neb 3 ML IH SCH ×5 (03:50→15:33)
[2017-05-14] MEDS ORDERED: *HR* Heparin 5,000 UNIT/ML VIAL SQ SCH (06:00)
--- NOTE | 2017-05-14 06:31 | Electrocardiograph Report ---
[place] [address] Test Date: 2017-05-12 Pat Name: Mae Beckett Department: 102 Room: 3B Gender: F Bond Runner: [facility] : 1960 Requested By: Mauricio Melendez Order Number: [id number] Reading MD: Duy Del Valle Measurements Intervals [place] Rate: 87 P: 84 AL: 126 QRS: 64 QRSD: 86 T: 67 QT: 343 QTc: 388 Interpretive Statements SINUS RHYTHM Electronically Signed On 05-14-2017 6:29:53 EDT by Duy Del Valle
[2017-05-14] MEDS: levoFLOXacin 500 MG TABLET PO SCH (08:32)
[2017-05-14] MEDS: predniSONE 20 MG TABLET PO SCH (08:32)
[2017-05-14] MEDS: (Roflumilast [Daliresp] 500 MCG) PO SCH (10:19)
[2017-05-14 11:18] VITALS: BP 125/77
--- NOTE | 2017-05-14 14:41 | Discharge Summary ---
Date of Encounter: 05/14/17 Time of Encounter: 14:32 - Discharge Diagnosis (1) Acute exacerbation of chronic obstructive airways disease Priority: Primary Status: Acute Comments: 1 continue with DuoNeb's Levaquin and prednisone taper continue with home oxygen follow-up with primary care (2) Chronic respiratory failure Priority: Secondary Status: Chronic Comments: Improved-continue with oxygen Qualifiers: Respiratory failure complication: hypoxia Qualified Code(s): J96.11 - Chronic respiratory failure with hypoxia (3) GERD (gastroesophageal reflux disease) Priority: Secondary Status: Chronic Comments: Continue home meds Qualifiers: Esophagitis presence: without esophagitis Qualified Code(s): K21.9 - Gastro -esophageal reflux disease without esophagitis (4) History of DVT (deep vein thrombosis) Priority: Secondary Status: Chronic Comments: Follow-up provider is chronic and not on any meds at this time (5) Sleep apnea Priority: Secondary Status: Chronic Comments: CPAP Qualifiers: Sleep apnea type: unspecified type Qualified Code(s): G47.30 - Sleep apnea , unspecified (6) Lactic acidosis Priority: Secondary Status: Resolved Hospital course: Ms. Beckett is a 57 year old female past medical history of COPD oxygen dependent former smoker. The patient has been short of breath for several days and she presented to her PCP who did prescribe Levaquin and prednisone however she continued to experience wheezing and shortness of breath on exertion despite the use of oxygen. She denies any cough or phlegm production no fevers or chills no lower extremity swelling or chest pain She presented to [facility] emergency department. Her workup was unremarkable except for lactic acidosis. She was given IV fluids, and lactate improved. She was given breathing treatments as well as steroids and respiratory state return to her baseline and she is at her oxygen baseline. Oxygen saturations have been stable no wheezing at this time. We will continue with antibiotics for next 3 days for completion of 5 days. We will continue with the steroid taper. I advised patient to follow-up with her primary care provider since this provider knows her best. Patient verbalized understanding Discharge discussed with: patient - Time Spent with Patient Total time spent providing and/or coordinating discharge services: - Discharge Medications Prescriptions: levoFLOXacin [Levaquin] 500 mg PO DAILY 3 Days #3 tablet predniSONE [PredniSONE] 10 mg PO DAILY #22 tablet Home Medications: Montelukast [Singulair] 10 mg PO HS 10/01/14 [History] Omeprazole [PriLOSEC] 20 mg PO BIDAC 10/01/14 [History] Albuterol Sulfate [Proair Hfa] 2 puff IH Q4HR PRN 06/10/15 [History] Ipratropium/Albuterol Neb [Duoneb] 3 ml IH QID 06/10/15 [History] Escitalopram [Lexapro] 10 mg PO DAILY 05/21/16 [History] Tiotropium [Spiriva] 18 mcg IH DAILY 05/21/16 [History] Budesonide/Formoterol 160/4.5 [Symbicort 160/4.5] 2 puff IH BIDR 04/06/17 [ History] LORazepam [Ativan] 1 mg PO HS PRN 04/06/17 [History] Oxygen 3 l NS AD 04/06/17 [History] Roflumilast [Daliresp] 500 mcg PO DAILY 04/06/17 [History] Sodium Chloride for inhalation [Sodium Chloride, Saline 3 ML] 3 ml IH QID PRN [History] levoFLOXacin [Levaquin] 500 mg PO DAILY 3 Days #3 tablet 05/14/17 [Rx] predniSONE [PredniSONE] 10 mg PO DAILY #22 tablet 05/14/17 [Rx] Allergies/Adverse Reactions: 3 Allergy/AdvReac Type Severity Reaction Status Date / Time pantoprazole [From Protonix] Allergy See Verified 05/12/17 15:32 Comments Date of admission: 05/12/17 18:10 Primary care physician: Librado Andre MD Discharging clinician: Juana Ayala Anticipated date of discharge: 05/14/17 - Constitutional Vitals: Temp Pulse Resp BP Pulse Ox 98.0 F 80 18 125/77 98 05/14/17 11:17 05/14/17 11:17 05/14/17 11:38 05/14/17 11:17 05/14/17 11:38 General appearance: Present: A&O X 3, pleasant, no acute distress - Head Head exam: Present: atraumatic, normocephalic - Eye Eye exam: Present: PERRL, conjuntiva pink, sclera anicteric Pupils: Present: PERRL - Neck Neck exam general surgery: Present: supple, trachea midline. Absent: lymphadenopathy - Respiratory Respiratory exam: Present: CTAB. Absent: accessory muscle use, rales, rhonchi, wheezes - Cardiovascular Cardiovascular exam: Present: RRR, +S1, +S2. Absent: diastolic murmur, gallop, rubs, systolic murmur - GI/Abdominal GI/Abdominal exam: Present: normal bowel sounds, soft, no peritoneal signs. Absent: distended, tenderness - Extremities Exam Extremities exam: Present: warm, radial pulses palpable and symmetrical. Absent : calf tenderness, cyanotic, pedal edema - Neurological Exam Neurological exam: Present: CN II-XII intact, oriented X3, no focal deficits. Absent: pronater drift, facial droop, speech deficit - Skin Skin exam: Present: dry, intact - Patient Status Disposition: Home, Self-Care Condition: Fair Functional capacity at discharge: independent ambulation Overall status at discharge: patient is progressing back to baseline - Discharge Instructions Instructions: Prednisone (By mouth), Levofloxacin (By mouth), Chronic Obstructive Pulmonary Disease (DC) Follow Up With: Librado Andre MD [Primary Care Provider] - 05/20/17 1:30 pm - Diet and Activity Activity: wear oxygen at all times Diet: advance to your usual diet
== END 2017-05-14 16:00 | disposition home or self-care (01) ==
LOC: EMEROO 15:24 → 3BNU 15:24
PROVIDERS: ADMIT Internal Medicine; ATTEND Registered Nurse

== ENCOUNTER 2017-06-18 10:54 | Inpatient (IN) ==
[2017-06-18] MEDS ORDERED: methylPREDNISolone 125 MG/2 ML VIAL IVP ONE (11:06)
[2017-06-18] MEDS ORDERED: Ipratropium/Albuterol Neb 3 ML IH ONE (11:06)
[2017-06-18] MEDS ORDERED: Aspirin 325 MG TABLET PO ONE (11:17)
--- NOTE | 2017-06-18 11:23 | Emergency Department Note ---
Disposition Clinical Impression: COPD exacerbation, Hypoxia, Respiratory distress, Acute exacerbation of chronic obstructive airways disease Acute and chronic respiratory failure Qualifiers: Respiratory failure complication: unspecified whether with hypoxia or hypercapnia Qualified Code(s): J96.20 - Acute and chronic respiratory failure, unspecified whether with hypoxia or hypercapnia Disposition: Admitted As Inpatient Condition: Good Time of Disposition: 13:14 General Adult HPI - General Chief complaint: ED Shortness of Breath/Dyspnea Stated complaint: "CP,sob" Time Seen by Provider: 06/18/17 10:59 Source: patient Limitations: no limitations Nursing Notes Reviewed: Yes Vital Signs Reviewed: Yes - History of Present Illness HPI Narrative: Ms. Beckett is a very pleasant 57-year-old female with a past history of oxygen dependent COPD presents to the [facility] emergency room chief complaint of shortness of breath. Patient reports that she has had this complaint roughly for 1 week. She is complaining of a association with productive cough without any fevers. No recent sick contacts. Patient was recently admitted to the [facility] discharge on May 14 for similar complaints. Patient is being followed by pulmonology here and has been recommended for further evaluation at [facility] in July for possible discussion for lung transplant. Patient additionally uses BiPAP at home as needed. Patient does use inhalers and breathing treatments at home but has not provided significant relief over the last several days. Patient uses 3 L of oxygen at all times. In addition, she is complaining of mild chest pain just below her left breast that started yesterday. She reports his pain is constant and achy in nature. No history of this previously. Patient has a history of tobacco abuse which he smoked 1 pack per day for 30-40 years. She quit 3 years ago. No other complaints at this time. Pain Scale: 4 - Related Data Home Medications Medication Instructions Recorded Confirmed Omeprazole [PriLOSEC] 20 mg PO BIDAC 10/01/14 06/18/17 Albuterol Sulfate [Proair Hfa] 2 puff IH Q4HR PRN 06/10/15 06/18/17 Ipratropium/Albuterol Neb [Duoneb] 3 ml IH QID 06/10/15 06/18/17 Escitalopram [Lexapro] 10 mg PO DAILY 05/21/16 06/18/17 Budesonide/Formoterol 160/4.5 2 puff IH BIDR 04/06/17 06/18/17 [Symbicort 160/4.5] LORazepam [Ativan] 1 mg PO HS PRN 04/06/17 06/18/17 Oxygen 3 l NS AD 04/06/17 06/18/17 Roflumilast [Daliresp] 500 mcg PO DAILY 04/06/17 06/18/17 Theophylline Anhydrous [Ananda-24] 100 mg PO DAILY 06/18/17 06/18/17 Allergies Allergy/AdvReac Type Severity Reaction Status Date / Time pantoprazole [From Protonix] Allergy See Verified 06/18/17 11:40 Comments Review of Systems: Constitutional: No fever Vision: No blurred vision ENT: No rhinorrhea Respiratory: Productive cough Cardiovascular: Chest pain Allergic: No allergies : No blood in urine GI: No blood in stool Hematologic: No bruising Dermatologic: No skin rash Musculoskeletal: No pain in the extremities Neuro: No numbness of the extremities Past Medical History - Past Medical History Medical history: Reports: COPD, CVA Surgical history: Reports: appendectomy, hysterectomy, orthopedic, other Psychiatric history: Reports: anxiety 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 EYES: Ocular movements grossly intact, no scleral icterus, no drainage, no conjunctival injection NOSE: The nose is normal in appearance without rhinorrhea Oropharynx: pink/moist, no tonsillar edema/erythema/exudates RESP: Respiratory distress with use of accessory musculature, diffuse wheezing CARD: Regular rhythm, without murmurs, rubs, or gallop ABD: grossly normal, soft, non-tender, no guarding/distention/rigidity SKIN: normal appearance, no pallor/diaphoresis,mottling,jaundice,cyanosis EXT: PT pulses 2+ and symmetrical; no lateralizing edema; no other lesions seen PSYCH: appropriate mood/affect - General Limitations: no limitations General appearance: anxious Course Course Narrative: Patient was seen and examined at bedside. Vital signs reviewed and showed heart rate of 108 the patient was satting 92% on 3 L on presentation. Physical examination demonstrates a patient who is in mild respiratory distress with use of her accessory musculature. Patient is audibly wheezing. Auscultation reveals diffuse wheezing without any evidence of rhonchi, crackles. Her left inferior anterior chest wall pain was not reproducible. Remainder of examination was benign. Patient does use BiPAP at home as needed. Patient will be given breathing treatments and IV steroids. Despite her oxygen sat at 95% on 3L NC, I suspect respiratory fatigue and we will call respiratory for BiPAP use. She is hemodynamically stable and does need require further immediate intervention. She is otherwise comfortable lying in bed at this time. Twelve-lead EKG, chest x-ray, CBC, BMP, coags, lactic acid, troponin will be obtained. IV access be obtained. I anticipate patient will be admitted for acute on chronic respiratory failure secondary to COPD exists exacerbation. Results pending. 1300: Patient is tolerating BiPAP without concern. She is oxygenating with oxygen above 96%. CBC shows mild cytosis and 11. BMP unremarkable. Troponin negative. 12-lead EKG was unremarkable for any changes. Chest x-ray shows no acute process. Given this patient's significant history of admissions for COPD exacerbations recommend further inpatient medical intervention for acute on chronic respiratory failure due to COPD exacerbation. Case was discussed with Dr. Castle who accepted patient for admission. No further recommendations per hospital team. This disposition and plan were discussed and patient understands and agrees. All further questions and concerns were addressed. Vital Signs Temperature 98.8 F 06/18/17 10:56 Pulse Rate 108 06/18/17 10:56 Respiratory Rate 26 06/18/17 10:56 Blood Pressure 112/63 06/18/17 10:56 O2 Sat by Pulse Oximetry 92 06/18/17 10:56 Temperature 98.5 F 06/18/17 14:12 Pulse Rate 94 06/18/17 14:12 Respiratory Rate 20 06/18/17 14:12 Blood Pressure 96/63 06/18/17 14:12 O2 Sat by Pulse Oximetry 94 06/18/17 14:12 Oxygen Delivery Oxygen Delivery Bipap Medical Decision Making - Medical Records Medical records reviewed: Yes I reviewed the patient's medical records. - Lab Data Lab results reviewed: Yes I reviewed the patient's lab results. Result diagrams: 06/18/17 11:20 06/18/17 11:20 Lab Results 05/03/18 05/03/18 05/03/18 Range/Units 11:20 11:20 11:20 WBC 11.2 H (4.3-11.1) K/mcL RBC 4.49 (3.82-4.97) M/mcL Hgb 14.1 (11.5-15.4) g/dL Hct 42.4 (35.3-44.9) % MCV 94.4 (83.0-100.0) fL MCH 31.4 (28.0-33.3) pg MCHC 33.3 (31.6-35.5) g/dL RDW 15.8 H (11.5-14.5) % Plt Count 329 (140-400) K/mcL MPV 9.3 L (9.4-12.4) fL Immature Gran % 1.1 (0-4) % Seg Neutrophils % 70.8 % Lymphocytes % 13.5 % Monocytes % 10.5 % Eosinophils % 3.7 % Basophils % 0.4 % Neutrophils # 8.0 (1.6-8.9) K/mcL Lymphocytes # 1.5 (0.6-4.6) K/mcL Monocytes # 1.2 (0.0-1.3) K/mcL Eosinophils # 0.4 (0.0-0.6) K/mcL Basophils # 0.1 (0.0-0.2) K/mcL PT 10.5 (9.4-12.1) Seconds INR 1.0 APTT 28.8 (26.0-36.0) Seconds Sodium 140 (136-145) mEq/L Potassium 3.8 (3.5-5.1) mEq/L Chloride 101 (98-107) mEq/L Carbon Dioxide 29 (23-29) mEq/L BUN 9 (6-20) mg/dL Creatinine 0.91 (0.60-1.20) mg/dL Est GFR ( Amer) > 60 (> 60) Est GFR (Non-Af Amer) > 60 (> 60) BUN/Creatinine Ratio 10 (6-26) Glucose 95 (70-105) mg/dL Calculated Osmolality 288 (280-300) Lactic Acid (0.5-2.2) mmol/L Calcium 9.6 (8.6-10.3) mg/dL Troponin I 0.03 (< 0.04) ng/mL B-Natriuretic Peptide (Less than 100) pg/mL 06/18/17 06/18/17 Range/Units 11:20 11:20 WBC (4.3-11.1) K/mcL RBC (3.82-4.97) M/mcL Hgb (11.5-15.4) g/dL Hct (35.3-44.9) % MCV (83.0-100.0) fL MCH (28.0-33.3) pg MCHC (31.6-35.5) g/dL RDW (11.5-14.5) % Plt Count (140-400) K/mcL MPV (9.4-12.4) fL Immature Gran % (0-4) % Seg Neutrophils % % Lymphocytes % % Monocytes % % Eosinophils % % Basophils % % Neutrophils # (1.6-8.9) K/mcL Lymphocytes # (0.6-4.6) K/mcL Monocytes # (0.0-1.3) K/mcL Eosinophils # (0.0-0.6) K/mcL Basophils # (0.0-0.2) K/mcL PT (9.4-12.1) Seconds INR APTT (26.0-36.0) Seconds Sodium (136-145) mEq/L Potassium (3.5-5.1) mEq/L Chloride (98-107) mEq/L Carbon Dioxide (23-29) mEq/L BUN (6-20) mg/dL Creatinine (0.60-1.20) mg/dL Est GFR ( Amer) (> 60) Est GFR (Non-Af Amer) (> 60) BUN/Creatinine Ratio (6-26) Glucose (70-105) mg/dL Calculated Osmolality (280-300) Lactic Acid 0.9 (0.5-2.2) mmol/L Calcium (8.6-10.3) mg/dL Troponin I (< 0.04) ng/mL B-Natriuretic Peptide 40 (Less than 100) pg/mL - Radiology Data Radiology results reviewed: Yes I reviewed the patient's radiology results. Chest X-Ray 06/18/17 11:07 IMPRESSION: No acute process. Emphysema. D/ / Gamal Fung MD / Gamal Fung MD Interpreting Provider: Gamal Fung MD - EKG Data EKG #1 EKG attestation: Yes I reviewed and interpreted this EKG. EKG results narrative: Heart rate 100, KS 123, QRS 82, QTC 379 consistent with sinus tachycardia. There are no new T-wave or ST wave abnormalities. This EKG was compared to previous was performed on 05/12/2017. Attestation Statement - Attestation Attestation: I, Humza Stringer DO, examined this patient [id number] and my medical decision-making was reviewed with Weston Prather PGY-1 Resident Physician. I agree with the documented findings, disposition and treatment plan as described except to the extent set forth below. Please see my progress notes for details.
[2017-06-18 11:36] LABS: Basophils # 0.1 K/mcL (0.0-0.2); Basophils % 0.4 %; Eosinophils # 0.4 K/mcL (0.0-0.6); Eosinophils % 3.7 %; Hematocrit 42.4 % (35.3-44.9); Hemoglobin 14.1 g/dL (11.5-15.4); Immature Granulocytes % 1.1 % (0-4); Lymphocytes # 1.5 K/mcL (0.6-4.6); Lymphocytes % 13.5 %; Mean Corpuscular HGB Conc 33.3 g/dL (31.6-35.5); Mean Corpuscular Hemoglobin 31.4 pg (28.0-33.3); Mean Corpuscular Volume 94.4 fL (83.0-100.0); Mean Platelet Volume 9.3 fL (9.4-12.4); Monocytes # 1.2 K/mcL (0.0-1.3); Monocytes % 10.5 %; Platelet Count 329 K/mcL (140-400); Red Blood Count 4.49 M/mcL (3.82-4.97); Red Cell Distribution Width 15.8 % (11.5-14.5); Segmented Neutrophils % 70.8 %
[2017-06-18 11:46] LABS: Prothrombin Time 10.5 Seconds (9.4-12.1)
[2017-06-18 11:48] LABS: Activated Partial Thrombo Time 28.8 Seconds (26.0-36.0)
[2017-06-18 11:53] LABS: Troponin I 0.03 ng/mL (< 0.04)
--- NOTE | 2017-06-18 13:05 | Emergency Department Note ---
Disposition Clinical Impression: COPD exacerbation, Hypoxia, Respiratory distress Disposition: Admitted As Inpatient Condition: Fair Referrals: Librado Andre MD [Primary Care Provider] - Forms: ED Satisfaction Letter Time of Disposition: 13:14 General Adult HPI - General Chief complaint: ED Shortness of Breath/Dyspnea Stated complaint: "CP,sob" Time Seen by Provider: 06/18/17 10:59 Source: patient Limitations: no limitations - History of Present Illness Pain Scale: 4 - Related Data Home Medications Medication Instructions Recorded Confirmed Omeprazole [PriLOSEC] 20 mg PO BIDAC 10/01/14 06/18/17 Albuterol Sulfate [Proair Hfa] 2 puff IH Q4HR PRN 06/10/15 06/18/17 Ipratropium/Albuterol Neb [Duoneb] 3 ml IH QID 06/10/15 06/18/17 Escitalopram [Lexapro] 10 mg PO DAILY 05/21/16 06/18/17 Budesonide/Formoterol 160/4.5 2 puff IH BIDR 04/06/17 06/18/17 [Symbicort 160/4.5] LORazepam [Ativan] 1 mg PO HS PRN 04/06/17 06/18/17 Oxygen 3 l NS AD 04/06/17 06/18/17 Roflumilast [Daliresp] 500 mcg PO DAILY 04/06/17 06/18/17 Theophylline Anhydrous [Ananda-24] 100 mg PO DAILY 06/18/17 06/18/17 Allergies Allergy/AdvReac Type Severity Reaction Status Date / Time pantoprazole [From Protonix] Allergy See Verified 06/18/17 11:40 Comments Past Medical History - Past Medical History Medical history: Reports: COPD, CVA Surgical history: Reports: appendectomy, hysterectomy, orthopedic, other Psychiatric history: Reports: anxiety 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 - Social History Smoking Status: Former smoker Smokeless Tobacco Status: No Alcohol use: Reports: occasionally Drug use: Reports: none Physical Exam - General Limitations: no limitations General appearance: anxious Course Vital Signs Temperature 98.8 F 06/18/17 10:56 Pulse Rate 108 06/18/17 10:56 Respiratory Rate 26 06/18/17 10:56 Blood Pressure 112/63 06/18/17 10:56 O2 Sat by Pulse Oximetry 92 06/18/17 10:56 Temperature 98.8 F 06/18/17 11:02 Pulse Rate 16 06/18/17 11:32 Respiratory Rate 18 06/18/17 11:32 Blood Pressure 103/85 06/18/17 11:32 O2 Sat by Pulse Oximetry 99 06/18/17 11:32 Oxygen Delivery Oxygen Delivery Bipap Medical Decision Making - Lab Data Result diagrams: 06/18/17 11:20 Lab Results 06/18/17 06/18/17 06/18/17 Range/Units 11:20 11:20 11:20 WBC 11.2 H (4.3-11.1) K/mcL RBC 4.49 (3.82-4.97) M/mcL Hgb 14.1 (11.5-15.4) g/dL Hct 42.4 (35.3-44.9) % MCV 94.4 (83.0-100.0) fL MCH 31.4 (28.0-33.3) pg MCHC 33.3 (31.6-35.5) g/dL RDW 15.8 H (11.5-14.5) % Plt Count 329 (140-400) K/mcL MPV 9.3 L (9.4-12.4) fL Immature Gran % 1.1 (0-4) % Seg Neutrophils % 70.8 % Lymphocytes % 13.5 % Monocytes % 10.5 % Eosinophils % 3.7 % Basophils % 0.4 % Neutrophils # 8.0 (1.6-8.9) K/mcL Lymphocytes # 1.5 (0.6-4.6) K/mcL Monocytes # 1.2 (0.0-1.3) K/mcL Eosinophils # 0.4 (0.0-0.6) K/mcL Basophils # 0.1 (0.0-0.2) K/mcL PT 10.5 (9.4-12.1) Seconds INR 1.0 APTT 28.8 (26.0-36.0) Seconds Lactic Acid (0.5-2.2) mmol/L Troponin I 0.03 (< 0.04) ng/mL B-Natriuretic Peptide (Less than 100) pg/mL 06/18/17 06/18/17 Range/Units 11:20 11:20 WBC (4.3-11.1) K/mcL RBC (3.82-4.97) M/mcL Hgb (11.5-15.4) g/dL Hct (35.3-44.9) % MCV (83.0-100.0) fL MCH (28.0-33.3) pg MCHC (31.6-35.5) g/dL RDW (11.5-14.5) % Plt Count (140-400) K/mcL MPV (9.4-12.4) fL Immature Gran % (0-4) % Seg Neutrophils % % Lymphocytes % % Monocytes % % Eosinophils % % Basophils % % Neutrophils # (1.6-8.9) K/mcL Lymphocytes # (0.6-4.6) K/mcL Monocytes # (0.0-1.3) K/mcL Eosinophils # (0.0-0.6) K/mcL Basophils # (0.0-0.2) K/mcL PT (9.4-12.1) Seconds INR APTT (26.0-36.0) Seconds Lactic Acid 0.9 (0.5-2.2) mmol/L Troponin I (< 0.04) ng/mL B-Natriuretic Peptide 40 (Less than 100) pg/mL Attestation Statement - Attestation Attestation: I, Humza Stringer DO, examined this patient [id number] and my medical decision-making was reviewed with Weston Prather PGY-1 Resident Physician. I agree with the documented findings, disposition and treatment plan as described except to the extent set forth below. Please see my progress notes for details. 57-year-old female presents to the emergency room for evaluation of shortness of breath increased work of breathing and COPD exacerbation. The patient has had multiple issues of this in the past she was recently evaluated and discharged from this facility after being treated with antibiotics steroids and breathing treatments. Patient typically uses 3 L of oxygen by nasal cannula home 24 hours a day. She has been seen and evaluated and treated by pulmonology multiple different times and has been scheduled to be seen up at [facility] in July for possible lung transplant. Patient provided with BiPAP, steroids, breathing treatments in the emergency room until cardiac evaluation including EKG chest x-ray troponin. Aspirin will be given along with the medications to help with her respiratory status at this time. Patient otherwise will most likely require admission. She will not be given antibiotics at this point considering she just finished a treatment course of antibiotics and does not have any productive or fall colored sputum at this point. Patient is otherwise clinically stable despite having multiple medical issues will be addressed and treated here. Physical exam does show audible and auscultated wheezing in all lung [place]. She does use accessory muscles and does have thickening to the anterior chest wall where she chronically uses her chest wall to help breathe. Her heart is regular abdomen is soft she has no pitting edema or swelling. She has no other neurologic deficits or symptoms. Her main complaint is shortness of breath identical to when she has had COPD exacerbations in the past. Disposition pending the full workup and treatment course. No critical care applied. See detailed documentation of the physical exam, medical intervention, medical decision-making and disposition in the resident physician's note. 1300 Patient's labs are still pending. Patient is going to be admitted to the hospitalist Dr. benson. We reviewed the patient's presentation symptoms as well as the recommendations from pulmonology in the past. He also evaluated the patient the bedside here in the emergency room was comfortable with the admission this time. Patient is otherwise currently stable. She is still requiring the ventilation assistance as well as oxygen requirements. Patient will be admitted at this time for what appears to be a COPD exacerbation and requiring further inpatient management.
[2017-06-18] MEDS ORDERED: Naloxone 0.4 MG/ML INJ IVP PRN (13:15)
[2017-06-18] MEDS ORDERED: *HR* HYDROcodone/Acet 5/325 mg TABLET PO PRN (13:15)
--- NOTE | 2017-06-18 13:24 | Internal Med History&Physical ---
Date of Encounter: 06/18/17 Time of Encounter: 13:22 Internal Medicine - H&P: HPI Chief complaint: Shortness of breath Admitted From: Emergency Dept Plans for Post Hospital Care: Home History of present illness: Ms. Beckett is a 57 year old female who is a background history of for oxygen dependent COPD. Patient uses usually 3 L of oxygen at home. Patient follows up with emergency medcl emt here in this hospital system. Patient was referred to [facility] for possible lung transplant/lung volume reduction surgery. For the past 48 hours patient has a progressively worsening shortness of breath. Noted that patient has a change in color of the expectoration. Noted that patient has a mild febrile episode. This was the reason patient came to emergency room for further evaluation. Workup in the emergency room: Patient was evaluated in the emergency room. Basic labs were drawn. Patient was given a BiPAP as patient was approximately nature. Reason for admission: COPD exacerbation. Family history: Noncontributory Past Med Surg Social Fam HX - Past Medical History Medical history: COPD, CVA Psychiatric history: anxiety - Past Surgical History Surgical History: appendectomy, hysterectomy, orthopedic, other - Social History Smoking Status: Former smoker Smokeless Tobacco Status: No Alcohol use: occasionally Drug use: none - Family History Mother Living Status: Hx Family Cardiac Disorders: Yes Hx Family Respiratory Disorders: Yes Hx Family Cancer: No Hx Family GI Disorders: Yes (colostomy form colon tear colonoscopy) Hx Family Endocrine Disorder: No Hx Family Neuromuscular Disorders: No Hx Family Neurologic Disorders: No Hx Family HEENT Disorders: No Hx Family Autoimmune Disorders: No Father Living Status: Hx Family Cardiac Disorders: Yes Hx Family Cancer: Yes (lung cancer) Internal Medicine - H&P: Meds Omeprazole [PriLOSEC] 20 mg PO BIDAC 10/01/14 [History] Albuterol Sulfate [Proair Hfa] 2 puff IH Q4HR PRN 06/10/15 [History] Ipratropium/Albuterol Neb [Duoneb] 3 ml IH QID 06/10/15 [History] Escitalopram [Lexapro] 10 mg PO DAILY 05/21/16 [History] Budesonide/Formoterol 160/4.5 [Symbicort 160/4.5] 2 puff IH BIDR 04/06/17 [ History] LORazepam [Ativan] 1 mg PO HS PRN 04/06/17 [History] Oxygen 3 l NS AD 04/06/17 [History] Roflumilast [Daliresp] 500 mcg PO DAILY 04/06/17 [History] Theophylline Anhydrous [Ananda-24] 100 mg PO DAILY 06/18/17 [History] 3 Allergy/AdvReac Type Severity Reaction Status Date / Time pantoprazole [From Protonix] Allergy See Verified 06/18/17 11:40 Comments All Systems PM: A 10-system review of systems was performed and is negative for pertinent findings except as documented above in the HPI. - Constitutional Constitutional: no chills, no fever(s), no night sweats - EENT Eyes: no change in vision, no discharge, no pain, no photophobia Ears: no ear discharge, no ear pain, no tinnitus Nose, mouth and throat: no dysphagia, no nasal discharge, no neck pain, no sore throat - Cardiovascular Cardiovascular ROS IM: dyspnea, dyspnea on exertion, no chest pain, no diaphoresis, no lightheadedness, no palpitations, no syncope - Respiratory Respiratory: no cough, no dyspnea, no wheezing, no excessive phlegm production - Gastrointestinal Gastrointestinal: no abdominal pain, no diarrhea, no hematemesis, no hematochezia, no melena, no nausea, no vomiting - Genitourinary Genitourinary: no change in urinary stream, no dysuria, no flank pain, no hematuria - Musculoskeletal Musculoskeletal ROS IM: no numbness, no tingling - Integumentary Integumentary IM: no rash, no unusual bruising - Neurological Neurological ROS: no confusion, no convulsions, no focal weakness, no numbness, no tingling, no tremor(s) - Hematologic/Lymphatic Hematologic/Lymphatic: no easy bruising - Constitutional Vitals: Temp Pulse Resp BP Pulse Ox 98.8 F 16 18 103/85 99 06/18/17 11:02 06/18/17 11:32 06/18/17 11:32 06/18/17 11:32 06/18/17 11:32 General appearance: Present: A&O X 3, pleasant, no acute distress, answers questions appropriately - Head Head exam: Present: atraumatic, normocephalic - Eye Eye exam: Present: PERRL, conjuntiva pink, sclera anicteric Pupils: Present: PERRL - Neck Neck exam general surgery: Present: supple, trachea midline. Absent: lymphadenopathy - Respiratory Respiratory exam: Present: CTAB. Absent: accessory muscle use, rales, rhonchi, wheezes - Cardiovascular Cardiovascular exam: Present: RRR, +S1, +S2. Absent: diastolic murmur, gallop, rubs, systolic murmur - GI/Abdominal GI/Abdominal exam: Present: normal bowel sounds, soft, no peritoneal signs. Absent: distended, tenderness - Extremities Exam Extremities exam: Present: warm, radial pulses palpable and symmetrical. Absent : calf tenderness, cyanotic, pedal edema - Neurological Exam Neurological exam: Present: CN II-XII intact, oriented X3, no focal deficits. Absent: pronater drift, facial droop, speech deficit - Skin Skin exam: Present: dry, intact Internal Med - H&P Results - Labs CBC & Chem 7: 06/18/17 11:20 - Assessment and plan (1) Acute exacerbation of chronic obstructive airways disease Current Visit: No Status: Resolved Assessment and plan: Patient is known to have a COPD. This is a exacerbation of COPD. Plan: Admit as inpatient. Labs tomorrow morning. Cycle troponin. Antibiotics: IV ceftriaxone/IV azithromycin. Steroids: IV cerebral 40 mg every 8 hourly. Bronchodilators: DuoNeb every 4 hours I examined this patient in the emergency room #26. Patient was accompanied by her family member. Plan of care extent to the patient. (2) GERD (gastroesophageal reflux disease) Current Visit: No Status: Chronic Assessment and plan: Patient does have a GERD. We will resume her home medication. The pain is likely from the reflux. Qualifiers: Esophagitis presence: without esophagitis Qualified Code(s): K21.9 - Gastro -esophageal reflux disease without esophagitis (3) Chronic pain syndrome Current Visit: No Status: Chronic Assessment and plan: Patient does have a chronic pain syndrome. we will resume her home dose of a pain medication. (4) DVT prophylaxis Current Visit: No Status: Chronic Assessment and plan: Heparin Medical decision making: This patient has a moderate to severe risk of worsening in spite of being on appropriate medication/treatment in view of underlying chronic comorbid conditions - Time Spent With Patient Total time spent is greater than 50% in coordination of care (as documented) at patient's floor/unit and/or counseling patient:
[2017-06-18] MEDS ORDERED: NON-FORMULARY MEDICATION 1 EACH EACH (Oxygen [Oxygen] 3 L) NS SCH (13:30)
[2017-06-18 13:41] LABS: BUN/Creatinine Ratio 10 (6-26); Blood Urea Nitrogen 9 mg/dL (6-20); Calcium 9.6 mg/dL (8.6-10.3); Carbon Dioxide 29 mEq/L (23-29); Chloride 101 mEq/L (98-107); Glucose 95 mg/dL (70-105); Osmolality,Calculated 288 (280-300); Potassium 3.8 mEq/L (3.5-5.1); Sodium 140 mEq/L (136-145); eGFR For African Americans > 60 (> 60); eGFR For Non-African Americans > 60 (> 60)
[2017-06-18] MEDS ORDERED: cefTRIAXone 1,000 MG in 0.9 % Sodium Chloride Mini Bag 100 ML IVPB SCH (14:00)
[2017-06-18] MEDS ORDERED: Azithromycin 500 MG in D5% in Water 250 ML IVPB SCH (14:00)
[2017-06-18] MEDS: cefTRIAXone 1,000 MG in Water for inj. (sterile) 20 ML 10 ML IVP SCH (15:20)
[2017-06-18] MEDS: MethylPREDNISolone 40 MG/ML VIAL IVP SCH (15:21)
[2017-06-18] MEDS: *HR* Heparin 5,000 UNIT/ML VIAL SQ SCH (15:21)
[2017-06-18] MEDS: Ipratropium/Albuterol Neb 3 ML IH SCH ×3 (15:51→23:48)
--- NOTE | 2017-06-18 16:12 | Electrocardiograph Report ---
[place] [id number] Test Date: 2017-06-18 Pat Name: Mae Beckett Department: 104 Room: 2A26 Gender: F Infant And Toddler Teacher: HENRY : 1960 Requested By: Heath Prather Order Number: [id number] Reading MD: Jory Balderrama Measurements Intervals [place] Rate: 100 P: 86 AL: 123 QRS: 73 QRSD: 82 T: 53 QT: 322 QTc: 379 Interpretive Statements SINUS TACHYCARDIA ABNORMAL RHYTHM ECG Electronically Signed On 06-18-2017 16:10:34 EDT by Jory Balderrama
[2017-06-18] MEDS ORDERED: *HR* LORazepam 1 MG TABLET PO PRN (21:00)
[2017-06-19] MEDS: *HR* Heparin 5,000 UNIT/ML VIAL SQ SCH ×3 (00:03→18:19)
[2017-06-19] MEDS: MethylPREDNISolone 40 MG/ML VIAL IVP SCH ×3 (00:05→18:19)
[2017-06-19] MEDS: Ipratropium/Albuterol Neb 3 ML IH SCH ×6 (03:23→23:33)
[2017-06-19 07:01] LABS: INR 0.9
[2017-06-19 07:04] LABS: Activated Partial Thrombo Time 26.2 Seconds (26.0-36.0); Basophils % 0.2 %; Hematocrit 36.9 % (35.3-44.9); Hemoglobin 12.1 g/dL (11.5-15.4); Immature Granulocytes % 1.7 % (0-4); Lymphocytes # 0.4 K/mcL (0.6-4.6); Mean Corpuscular HGB Conc 32.8 g/dL (31.6-35.5); Mean Corpuscular Hemoglobin 30.6 pg (28.0-33.3); Mean Corpuscular Volume 93.2 fL (83.0-100.0); Mean Platelet Volume 9.6 fL (9.4-12.4); Monocytes # 0.2 K/mcL (0.0-1.3); Monocytes % 3.3 %; Neutrophils # 5.9 K/mcL (1.6-8.9); Platelet Count 296 K/mcL (140-400); Red Blood Count 3.96 M/mcL (3.82-4.97); Red Cell Distribution Width 14.9 % (11.5-14.5); Segmented Neutrophils % 88.8 %
[2017-06-19 07:15] LABS: Alanine Aminotransferase 11 Units/L (7-52); Albumin 3.7 g/dL (3.5-5.7); Albumin/Globulin Ratio 1.8 (1.1-2.2); Alkaline Phosphatase 57 Units/L (34-104); Aspartate Amino Transferase 10 Units/L (13-39); BUN/Creatinine Ratio 20 (6-26); Bilirubin,Total 0.3 mg/dL (0.3-1.0); Blood Urea Nitrogen 15 mg/dL (6-20); Calcium 9.3 mg/dL (8.6-10.3); Carbon Dioxide 30 mEq/L (23-29); Chloride 101 mEq/L (98-107); Chol/HDL Ratio 3.1 (0-4.9); Cholesterol 191 mg/dL (< 200); Globulin 2.1 g/dL (2.4-3.5); Glucose 182 mg/dL (70-105); HDL Cholesterol 61 mg/dL (40-59); LDL Cholesterol,Calculated 111 mg/dL (0-99); Magnesium 2.1 mg/dL (1.6-2.6); Osmolality,Calculated 293 (280-300); Phosphorous 3.9 mg/dL (2.7-4.5); Sodium 139 mEq/L (136-145); Total Protein 5.8 g/dL (6.4-8.9); Triglycerides 97 mg/dL (< 150); eGFR For African Americans > 60 (> 60); eGFR For Non-African Americans > 60 (> 60)
[2017-06-19] MEDS ORDERED: (Roflumilast [Daliresp] 500 MCG) PO SCH (09:00)
[2017-06-19] MEDS: cefTRIAXone 1,000 MG in Water for inj. (sterile) 20 ML 10 ML IVP SCH (14:00)
[2017-06-19] MEDS: Azithromycin 250 MG TABLET PO SCH (14:01)
--- NOTE | 2017-06-19 14:40 | Internal Med Progress Note ---
Date of Encounter: 06/19/17 Time of Encounter: 11:30 - Assessment and plan (1) Acute and chronic respiratory failure with hypoxia Current Visit: Yes Status: Acute Assessment and plan: Due to COPD exacerbation unable to tolerate NC O2 cont BiPAP for next 24hrs cont high dose IV steroids Pulm consulted (2) Acute exacerbation of chronic obstructive airways disease Current Visit: No Status: Resolved Assessment and plan: Cont high dose IV steroids cont Duoneb LITA Cont BiPAP for next 24 hrs Pulm consulted (3) Acute bronchitis Current Visit: Yes Status: Acute Assessment and plan: Mostly bacterial cont empirical abx Rocephin + Azithromycin Qualifiers: Bronchitis organism: unspecified organism Qualified Code(s): J20.9 - Acute bronchitis, unspecified (4) GERD (gastroesophageal reflux disease) Current Visit: No Status: Chronic Assessment and plan: cont home regimen Qualifiers: Esophagitis presence: without esophagitis Qualified Code(s): K21.9 - Gastro -esophageal reflux disease without esophagitis (5) Chronic pain syndrome Current Visit: No Status: Chronic Assessment and plan: resumed her home dose of a pain medication. (6) DVT prophylaxis Current Visit: No Status: Chronic Assessment and plan: Heparin Medical decision making: This patient has a moderate to severe risk of worsening in spite of being on appropriate medication/treatment in view of underlying chronic comorbid conditions (7) Chronic respiratory failure with hypercapnia Current Visit: Yes Status: Acute - Time Spent With Patient Total time spent is greater than 50% in coordination of care (as documented) at patient's floor/unit and/or counseling patient: - Subjective Interval history: Ms. 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 Peterson as an out pt presented to ER with worsening SOB and Cough with expectoration from last 2- 3 days. Pt was admitted in the hospital and started her on empirical abx, high dose IV steroids and duonebs. Pt is on BiPAP since last night.. Not able to tolerate NC O2 She is alert awake and O x 3. Denied any CP. Still has moderate to severe SOB and JORDAN. - Constitutional Vitals: Temp Pulse Resp BP Pulse Ox 96.4 F L 90 26 109/67 98 06/19/17 11:04 06/19/17 11:04 06/19/17 11:19 06/19/17 11:04 06/19/17 11:19 General appearance: Present: mild distress, A&O X 3, answers questions appropriately - Head Head exam: Present: atraumatic, normal inspection - Neck Neck exam general surgery: Present: supple - Respiratory Respiratory exam: Present: decreased breath sounds, respiratory distress, wheezes (moderate to severe). Absent: rales, rhonchi - Cardiovascular Cardiovascular exam: Present: RRR, +S1, +S2. Absent: tachycardia - GI/Abdominal GI/Abdominal exam: Present: normal bowel sounds, soft. Absent: rebound, rigid, tenderness - Extremities Exam Extremities exam: Absent: calf tenderness, pedal edema, tenderness - Back Exam Back exam: Absent: CVA tenderness (L), CVA tenderness (R) - Neurological Exam Neurological exam: Present: alert, oriented X3 - Psychiatric Psychiatric exam: Present: normal affect, normal mood - Skin Skin exam: Absent: rash Internal Medicine: Result - Labs CBC & Chem 7: 06/19/17 06:16 06/19/17 06:16 Labs: Short CBC 06/19/17 Range/Units 06:16 WBC 6.6 (4.3-11.1) K/mcL Hgb 12.1 D (11.5-15.4) g/dL Hct 36.9 (35.3-44.9) % Plt Count 296 (140-400) K/mcL Neutrophils # 5.9 (1.6-8.9) K/mcL BMP 06/19/17 06:16 Sodium 139 Potassium 4.0 Chloride 101 Carbon Dioxide 30 H BUN 15 Creatinine 0.75 Glucose 182 H Calcium 9.3 Cardiac Enzymes 06/18/17 06/18/17 06/19/17 Range/Units 17:22 23:04 06:16 Troponin I < 0.03 < 0.03 < 0.03 (< 0.04) ng/mL Liver Function 06/19/17 Range/Units 06:16 Total Bilirubin 0.3 (0.3-1.0) mg/dL AST 10 L (13-39) Units/L ALT 11 (7-52) Units/L Alkaline Phosphatase 57 (34-104) Units/L Albumin 3.7 (3.5-5.7) g/dL - ABG Interpretation ABG results: PT/INR, D-dimer PT 10.0 Seconds (9.4-12.1) 06/19/17 06:16 Consult Discharge Plan - Plan Referrals: Librado Andre MD [Primary Care Provider] -
--- NOTE | 2017-06-19 14:55 | Pulmonology Consult Note ---
Date of Encounter: 06/19/17 Time of Encounter: 15:00 Assessment and Plan (1) Acute and chronic respiratory failure with hypoxia Current Visit: Yes Status: Acute Patient is in COPD exacerbation to Continue BIPAP 01/21 patient is tolerating well helps with V/Q mismatch . ABG looks compensated .Will be able to come off BIPAP in a day or two. (2) Acute exacerbation of chronic obstructive airways disease Current Visit: Yes Status: Acute To continue Bronchodilators and steroids . To continue Antibiotics. (3) JOSH and COPD overlap syndrome Current Visit: No Status: Acute Patient is using CPAP at home for now to use BIPAP in the hospital. History of Present Illness Consult date: 06/19/17 Requesting physician: Anish Shrestha Reason for consult: dyspnea Chief complaint: Dyspnea History of present illness: 57 year old female with past medical history significant for O2 dependent COPD , JOSH with COPD overlap syndrome. Patient is followed by [facility] comes with 2-3 days of increased shortness of breadth , cough and sputum production which was increased from baseline , denies any hemoptysis but she had some sore throat and some runny nose , denies any sick contact came to the ER CXR didnt show any evidence of consolidation or fluid overload , had some chest pain initially but now she doesnt have chest pain ,denies any palpitations or syncope , denies any abdominal pain or any neuro symptoms. Pulmonary was consulted for COPD exacerbation. Past Med Surg Social Fam HX - Past Medical History Medical history: COPD, CVA Psychiatric history: anxiety - Past Surgical History Surgical History: appendectomy, hysterectomy, orthopedic, other - Social History Smoking Status: Former smoker Smokeless Tobacco Status: No Alcohol use: occasionally Drug use: none - Family History Mother Living Status: Hx Family Cardiac Disorders: Yes Hx Family Respiratory Disorders: Yes Hx Family Cancer: No Hx Family GI Disorders: Yes (colostomy form colon tear colonoscopy) Hx Family Endocrine Disorder: No Hx Family Neuromuscular Disorders: No Hx Family Neurologic Disorders: No Hx Family HEENT Disorders: No Hx Family Autoimmune Disorders: No Father Living Status: Hx Family Cardiac Disorders: Yes Hx Family Cancer: Yes (lung cancer) Medications and Allergies Omeprazole [PriLOSEC] 20 mg PO BIDAC 10/01/14 [History] Albuterol Sulfate [Proair Hfa] 2 puff IH Q4HR PRN 06/10/15 [History] Ipratropium/Albuterol Neb [Duoneb] 3 ml IH QID 06/10/15 [History] Escitalopram [Lexapro] 10 mg PO DAILY 05/21/16 [History] Budesonide/Formoterol 160/4.5 [Symbicort 160/4.5] 2 puff IH BIDR 04/06/17 [ History] LORazepam [Ativan] 1 mg PO HS PRN 04/06/17 [History] Oxygen 3 l NS AD 04/06/17 [History] Roflumilast [Daliresp] 500 mcg PO DAILY 04/06/17 [History] Theophylline Anhydrous [Ananda-24] 100 mg PO DAILY 06/18/17 [History] 3 Allergy/AdvReac Type Severity Reaction Status Date / Time pantoprazole [From Protonix] Allergy See Verified 06/18/17 11:40 Comments All Systems: The remainder of the systems were reviewed and are negative Physical Examination Vital Signs: Vital Signs, Last 4 Hours Temp Pulse Resp BP Pulse Ox 06/19/17 11:19 26 98 06/19/17 11:04 96.4 F L 90 16 109/67 98 Auscultation: bilateral: wheezes Results - Laboratory Findings CBC and BMP: 06/19/17 06:16 06/19/17 06:16 PT/INR, D-dimer PT 10.0 Seconds (9.4-12.1) 06/19/17 06:16 Abnormal lab findings: Abnormal lab results RDW 14.9 % (11.5-14.5) H 06/19/17 06:16 Lymphocytes # 0.4 K/mcL (0.6-4.6) L 06/19/17 06:16 Carbon Dioxide 30 mEq/L (23-29) H 06/19/17 06:16 Glucose 182 mg/dL (70-105) H 06/19/17 06:16 POC Glucose 117 mg/dL (70-99) H 06/18/17 14:22 AST 10 Units/L (13-39) L 06/19/17 06:16 Serum Total Protein 5.8 g/dL (6.4-8.9) L 06/19/17 06:16 Globulin 2.1 g/dL (2.4-3.5) L 06/19/17 06:16 LDL Cholesterol, Calc 111 mg/dL (0-99) H 06/19/17 06:16 HDL Cholesterol 61 mg/dL (40-59) H 06/19/17 06:16 - Clinical Findings Intake & Output: Intake & Output 06/18/17 06/19/17 06/19/17 23:59 07:59 15:59 Intake Total 720 / 720 Balance 720 / 720 Consult Discharge Plan - Plan Referrals: Librado Andre MD [Primary Care Provider] -
[2017-06-19 15:19] LABS: ABG Base Excess 5 mEq/L (-2 to 3); ABG HCO3 30 mEq/L (21-27); ABG Oxygen Saturation 98 % (95-98); ABG PCO2 44 mmHg (35-45); ABG PH 7.44 pH Units (7.32-7.45); ABG PO2 94 mmHg (85-104); ABG TCO2 32 mEq/L (20-26)
[2017-06-19 20:18] LABS: Adenovirus Not Detected (Not Detect); Bordetella Pertussis Not Detected (Not Detect); Chlamydophila pneumoniae Not Detected (Not Detect); Coronavirus 229E Not Detected (Not Detect); Coronavirus HKU1 Not Detected (Not Detect); Coronavirus NL63 Not Detected (Not Detect); Coronavirus OC43 Not Detected (Not Detect); Human Metapneumovirus Not Detected (Not Detect); Human Rhinovirus/Enterovirus Not Detected (Not Detect); Influenza A Subtype 2009 H1 Not Detected (Not Detect); Influenza A Untypeable Not Detected (Not Detect); Influenza B Not Detected (Not Detect); Mycoplasma pneumoniae Not Detected (Not Detect); Parainfluenza Virus 1 Not Detected (Not Detect); Parainfluenza Virus 2 Not Detected (Not Detect); Parainfluenza Virus 3 Not Detected (Not Detect); Parainfluenza Virus 4 Not Detected (Not Detect); Respiratory Syncytial Virus Not Detected (Not Detect)
[2017-06-20] MEDS: *HR* Heparin 5,000 UNIT/ML VIAL SQ SCH ×3 (00:28→16:13)
[2017-06-20] MEDS: MethylPREDNISolone 40 MG/ML VIAL IVP SCH ×3 (00:28→16:13)
[2017-06-20] MEDS: Ipratropium/Albuterol Neb 3 ML IH SCH ×5 (03:30→20:07)
--- NOTE | 2017-06-20 09:49 | Internal Med Progress Note ---
Date of Encounter: 06/20/17 Time of Encounter: 09:00 - Assessment and plan (1) Acute and chronic respiratory failure with hypoxia Current Visit: Yes Status: Acute Assessment and plan: Due to COPD exacerbation Improving off the BiPAP this morning reviewed ABG from y/d - well compensated Will use BiPAP PRN during day time and continuous at night time Will cont one more day high dose IV steroids since pt still has diffuse wheezing Appreciate Pulm help (2) Acute exacerbation of chronic obstructive airways disease Current Visit: No Status: Resolved Assessment and plan: Cont high dose IV steroids cont Duoneb LITA (3) Chronic respiratory failure with hypercapnia Current Visit: Yes Status: Acute (4) Acute bronchitis Current Visit: Yes Status: Acute Assessment and plan: Mostly bacterial cont empirical abx Rocephin + Azithromycin Qualifiers: Bronchitis organism: unspecified organism Qualified Code(s): J20.9 - Acute bronchitis, unspecified (5) GERD (gastroesophageal reflux disease) Current Visit: No Status: Chronic Assessment and plan: cont home regimen Qualifiers: Esophagitis presence: without esophagitis Qualified Code(s): K21.9 - Gastro -esophageal reflux disease without esophagitis (6) Chronic pain syndrome Current Visit: No Status: Chronic Assessment and plan: resumed her home dose of a pain medication. (7) DVT prophylaxis Current Visit: No Status: Chronic Assessment and plan: Heparin Medical decision making: This patient has a moderate to severe risk of worsening in spite of being on appropriate medication/treatment in view of underlying chronic comorbid conditions - Time Spent With Patient Total time spent is greater than 50% in coordination of care (as documented) at patient's floor/unit and/or counseling patient: - Subjective Interval history: Ms. 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 Peterson as an out pt presented to ER with worsening SOB and Cough with expectoration from last 2- 3 days. Pt was admitted in the hospital and started her on empirical abx, high dose IV steroids and duonebs. Pt is off the BiPAP this morning. Doing well today on NC O2. Denied any CP. Still has moderate SOB and JORDAN - Constitutional Vitals: Temp Pulse Resp BP Pulse Ox 98.1 F 74 18 130/63 97 06/20/17 07:08 06/20/17 07:08 06/20/17 07:25 06/20/17 07:08 06/20/17 07:25 General appearance: Present: mild distress, A&O X 3, answers questions appropriately - Head Head exam: Present: atraumatic, normal inspection - Neck Neck exam general surgery: Present: supple - Respiratory Respiratory exam: Present: decreased breath sounds. Absent: rales, respiratory distress, rhonchi, wheezes - Cardiovascular Cardiovascular exam: Present: RRR, +S1, +S2. Absent: tachycardia - GI/Abdominal GI/Abdominal exam: Present: normal bowel sounds, soft. Absent: rebound, rigid, tenderness - Extremities Exam Extremities exam: Absent: calf tenderness, pedal edema, tenderness - Back Exam Back exam: Absent: CVA tenderness (L), CVA tenderness (R) - Neurological Exam Neurological exam: Present: alert, oriented X3 - Psychiatric Psychiatric exam: Present: normal affect, normal mood - Skin Skin exam: Absent: rash Internal Medicine: Result - Labs CBC & Chem 7: 06/19/17 06:16 06/19/17 06:16 - ABG Interpretation ABG results: ABG ABG pH 7.44 pH Units (7.32-7.45) 06/19/17 15:17 ABG pCO2 44 mmHg (35-45) 06/19/17 15:17 ABG pO2 94 mmHg (85-104) 06/19/17 15:17 ABG O2 Saturation 98 % (95-98) 06/19/17 15:17 PT/INR, D-dimer PT 10.0 Seconds (9.4-12.1) 06/19/17 06:16 Consult Discharge Plan - Plan Referrals: Librado Andre MD [Primary Care Provider] -
[2017-06-20] MEDS: Azithromycin 250 MG TABLET PO SCH (16:13)
[2017-06-20] MEDS: cefTRIAXone 1,000 MG in Water for inj. (sterile) 20 ML 10 ML IVP SCH (16:13)
[2017-06-21] MEDS: *HR* Heparin 5,000 UNIT/ML VIAL SQ SCH ×4 (01:07→23:26)
[2017-06-21] MEDS: MethylPREDNISolone 40 MG/ML VIAL IVP SCH ×3 (01:07→17:34)
[2017-06-21] MEDS: Ipratropium/Albuterol Neb 3 ML IH SCH ×7 (01:08→23:07)
--- NOTE | 2017-06-21 10:36 | Internal Med Progress Note ---
Date of Encounter: 06/21/17 Time of Encounter: 10:36 - Assessment and plan (1) Acute and chronic respiratory failure with hypoxia Current Visit: Yes Status: Acute Assessment and plan: Due to COPD exacerbation Improving Will use BiPAP PRN during day time and continuous at night time start tapering IV steroids Appreciate Pulm help (2) Acute exacerbation of chronic obstructive airways disease Current Visit: No Status: Resolved Assessment and plan: improving start tapering IV steroids cont Duoneb LITA (3) Chronic respiratory failure with hypercapnia Current Visit: Yes Status: Acute (4) Acute bronchitis Current Visit: Yes Status: Acute Assessment and plan: Mostly bacterial cont empirical abx Rocephin + Azithromycin Qualifiers: Bronchitis organism: unspecified organism Qualified Code(s): J20.9 - Acute bronchitis, unspecified (5) GERD (gastroesophageal reflux disease) Current Visit: No Status: Chronic Assessment and plan: cont home regimen Qualifiers: Esophagitis presence: without esophagitis Qualified Code(s): K21.9 - Gastro -esophageal reflux disease without esophagitis (6) Chronic pain syndrome Current Visit: No Status: Chronic Assessment and plan: resumed her home dose of a pain medication. (7) DVT prophylaxis Current Visit: No Status: Chronic Assessment and plan: Heparin Medical decision making: This patient has a moderate to severe risk of worsening in spite of being on appropriate medication/treatment in view of underlying chronic comorbid conditions - Time Spent With Patient Total time spent is greater than 50% in coordination of care (as documented) at patient's floor/unit and/or counseling patient: - Subjective Interval history: Ms. 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 Peterson as an out pt presented to ER with worsening SOB and Cough with expectoration from last 2- 3 days. Pt was admitted in the hospital and started her on empirical abx, high dose IV steroids and duonebs. Pt is off the BiPAP this morning. Doing well today on NC O2 @ 3 lit. Denied any CP. Still has moderate SOB and JORDAN. No events over night. - Constitutional Vitals: Temp Pulse Resp BP Pulse Ox 97.6 F 76 20 128/70 100 06/21/17 07:42 06/21/17 07:42 06/21/17 07:42 06/21/17 07:42 06/21/17 07:42 General appearance: Present: A&O X 3, answers questions appropriately - Head Head exam: Present: atraumatic, normal inspection - Neck Neck exam general surgery: Present: supple - Respiratory Respiratory exam: Present: decreased breath sounds, wheezes (moderate). Absent : rales, respiratory distress, rhonchi - Cardiovascular Cardiovascular exam: Present: RRR, +S1, +S2. Absent: tachycardia - GI/Abdominal GI/Abdominal exam: Present: normal bowel sounds, soft. Absent: rebound, rigid, tenderness - Extremities Exam Extremities exam: Absent: calf tenderness, pedal edema, tenderness - Back Exam Back exam: Absent: CVA tenderness (L), CVA tenderness (R) - Neurological Exam Neurological exam: Present: alert, oriented X3 - Psychiatric Psychiatric exam: Present: normal affect, normal mood - Skin Skin exam: Absent: rash Internal Medicine: Result - Labs CBC & Chem 7: 06/19/17 06:16 06/19/17 06:16 - ABG Interpretation ABG results: ABG ABG pH 7.44 pH Units (7.32-7.45) 06/19/17 15:17 ABG pCO2 44 mmHg (35-45) 06/19/17 15:17 ABG pO2 94 mmHg (85-104) 06/19/17 15:17 ABG O2 Saturation 98 % (95-98) 06/19/17 15:17 PT/INR, D-dimer PT 10.0 Seconds (9.4-12.1) 06/19/17 06:16 Consult Discharge Plan - Plan Referrals: Librado Andre MD [Primary Care Provider] -
[2017-06-21] MEDS: Azithromycin 250 MG TABLET PO SCH (14:25)
[2017-06-21] MEDS: cefTRIAXone 1,000 MG in Water for inj. (sterile) 20 ML 10 ML IVP SCH (14:25)
[2017-06-22] MEDS: Ipratropium/Albuterol Neb 3 ML IH SCH ×2 (04:23→07:34)
[2017-06-22] MEDS: MethylPREDNISolone 40 MG/ML VIAL IVP SCH (06:12)
[2017-06-22 07:35] VITALS: BP 135/80
[2017-06-22] MEDS: *HR* Heparin 5,000 UNIT/ML VIAL SQ SCH (08:32)
--- NOTE | 2017-06-22 08:56 | Discharge Summary ---
- NOTES TO OUTPATIENT PROVIDER Notes to Outpatient Provider: f/u with PCP in one week. f/u with Pc Support Specialist in 1-2 weeks. cont BiPAP at night time and as needed during day time. If you get SOB at home, call your PCP see if then can initiate steroid therapy. Date of Encounter: 06/22/17 Time of Encounter: 08:53 - Discharge Diagnosis (1) Acute and chronic respiratory failure with hypoxia Priority: Primary Status: Acute (2) Acute exacerbation of chronic obstructive airways disease Priority: Primary Status: Resolved (3) Chronic respiratory failure with hypercapnia Priority: Secondary Status: Acute (4) Acute bronchitis Priority: Primary Status: Acute Qualifiers: Bronchitis organism: unspecified organism Qualified Code(s): J20.9 - Acute bronchitis, unspecified (5) GERD (gastroesophageal reflux disease) Priority: Secondary Status: Chronic Qualifiers: Esophagitis presence: without esophagitis Qualified Code(s): K21.9 - Gastro -esophageal reflux disease without esophagitis (6) Chronic pain syndrome Priority: Secondary Status: Chronic (7) DVT prophylaxis Priority: Secondary Status: Chronic Hospital course: Ms. 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 Peterson as an out pt presented to ER with worsening SOB and Cough with expectoration from last 2- 3 days. Pt was admitted in the hospital and started her on empirical abx, high dose IV steroids and duonebs Her symptoms started improving slowly. Doing well today on NC O2 @ 3 lit. Denied any CP. feels like back to baseline and wants to go home today. So will d/c her home in stable condition today with tapering IV steroids - Time Spent with Patient Total time spent providing and/or coordinating discharge services: - Discharge Medications Prescriptions: Cephalexin [Keflex] 500 mg PO TID #3 capsule predniSONE [PredniSONE] 40 mg PO DAILY #10 tablet Home Medications: Omeprazole [PriLOSEC] 20 mg PO BIDAC 10/01/14 [History] Albuterol Sulfate [Proair Hfa] 2 puff IH Q4HR PRN 06/10/15 [History] Ipratropium/Albuterol Neb [Duoneb] 3 ml IH QID 06/10/15 [History] Escitalopram [Lexapro] 10 mg PO DAILY 05/21/16 [History] Budesonide/Formoterol 160/4.5 [Symbicort 160/4.5] 2 puff IH BIDR 04/06/17 [ History] LORazepam [Ativan] 1 mg PO HS PRN 04/06/17 [History] Oxygen 3 l NS AD 04/06/17 [History] Roflumilast [Daliresp] 500 mcg PO DAILY 04/06/17 [History] Theophylline Anhydrous [Ananda-24] 100 mg PO DAILY 06/18/17 [History] Cephalexin [Keflex] 500 mg PO TID #3 capsule 06/22/17 [Rx] predniSONE [PredniSONE] 40 mg PO DAILY #10 tablet 06/22/17 [Rx] Allergies/Adverse Reactions: 3 Allergy/AdvReac Type Severity Reaction Status Date / Time pantoprazole [From Protonix] Allergy See Verified 06/18/17 11:40 Comments Date of admission: 06/18/17 16:22 Primary care physician: Librado Andre MD Consults: 06/19/17 14:36 Consult to Pulmonology [CONS] Routine Consulting Provider: [facility] Reason for Consult: Known to your service.. end stage COPD Time Notified: 14:37 Call Completed: Yes - Constitutional Vitals: Temp Pulse Resp BP Pulse Ox 97.8 F 77 16 135/80 99 06/22/17 07:28 06/22/17 07:28 06/22/17 07:34 06/22/17 07:28 06/22/17 07:34 General appearance: Present: A&O X 3, answers questions appropriately - Head Head exam: Present: atraumatic, normal inspection - Neck Neck exam general surgery: Present: supple - Respiratory Respiratory exam: Present: decreased breath sounds, wheezes (mild). Absent: respiratory distress, rhonchi - Cardiovascular Cardiovascular exam: Present: RRR, +S1, +S2. Absent: tachycardia - GI/Abdominal GI/Abdominal exam: Present: normal bowel sounds, soft. Absent: rebound, rigid, tenderness - Extremities Exam Extremities exam: Absent: calf tenderness, pedal edema, tenderness - Back Exam Back exam: Absent: CVA tenderness (L), CVA tenderness (R) - Neurological Exam Neurological exam: Present: alert, oriented X3 - Psychiatric Psychiatric exam: Present: normal affect, normal mood - Patient Status Disposition: Home, Self-Care Condition: Good Overall status at discharge: patient is back to baseline - Discharge Instructions Follow Up With: Librado Andre MD [Primary Care Provider] - - Diet and Activity Activity: increase activity as tolerated, wear oxygen at all times Diet: low salt diet
== END 2017-06-22 10:20 | disposition home or self-care (01) | DRG 189 ==
LOC: 2ANU 10:54 → EMEROO 10:54 → 2ANU 13:54 → SUATTDRO 16:22
PROVIDERS: ADMIT Internal Medicine; ATTEND Family Medicine

== ENCOUNTER 2017-07-27 14:03 | Observation (INO) ==
[2017-07-27] MEDS ORDERED: methylPREDNISolone 125 MG/2 ML VIAL IVP ONE (14:14)
[2017-07-27] MEDS ORDERED: Ipratropium/Albuterol Neb 3 ML IH ONE (14:14)
[2017-07-27 14:47] LABS: Basophils # 0.1 K/mcL (0.0-0.2); Basophils % 0.4 %; Eosinophils # 0.3 K/mcL (0.0-0.6); Eosinophils % 2.3 %; Hematocrit 40.8 % (35.3-44.9); Hemoglobin 13.5 g/dL (11.5-15.4); Immature Granulocytes % 1.9 % (0-4); Lymphocytes # 2.9 K/mcL (0.6-4.6); Lymphocytes % 20.6 %; Mean Corpuscular HGB Conc 33.1 g/dL (31.6-35.5); Mean Corpuscular Hemoglobin 31.3 pg (28.0-33.3); Mean Corpuscular Volume 94.4 fL (83.0-100.0); Monocytes # 0.9 K/mcL (0.0-1.3); Monocytes % 6.1 %; Neutrophils # 9.6 K/mcL (1.6-8.9); Platelet Count 332 K/mcL (140-400); Red Blood Count 4.32 M/mcL (3.82-4.97); Segmented Neutrophils % 68.7 %
[2017-07-27 15:04] LABS: Troponin I < 0.03 ng/mL (< 0.04)
[2017-07-27 15:05] LABS: BUN/Creatinine Ratio 12 (6-26); Blood Urea Nitrogen 10 mg/dL (6-20); Calcium 9.2 mg/dL (8.6-10.3); Carbon Dioxide 28 mEq/L (23-29); Chloride 103 mEq/L (98-107); Glucose 98 mg/dL (70-105); Osmolality,Calculated 291 (280-300); Potassium 3.7 mEq/L (3.5-5.1); Sodium 141 mEq/L (136-145); eGFR For African Americans > 60 (> 60); eGFR For Non-African Americans > 60 (> 60)
[2017-07-27] MEDS ORDERED: Albuterol 2.5 MG/3 ML NEBULIZER IH ONE (15:36)
--- NOTE | 2017-07-27 15:53 | Emergency Department Note ---
Disposition Clinical Impression: COPD exacerbation Disposition: Admitted As Inpatient Condition: Good General Adult HPI - General Chief complaint: ED Shortness of Breath/Dyspnea Stated complaint: KALIA Time Seen by Provider: 07/27/17 14:14 - History of Present Illness Pain Scale: 0 - Related Data Home Medications Medication Instructions Recorded Confirmed Albuterol Sulfate [Proair Hfa] 2 puff IH Q4HR PRN 06/10/15 07/27/17 Ipratropium/Albuterol Neb [Duoneb] 3 ml IH QID 06/10/15 07/27/17 Escitalopram [Lexapro] 10 mg PO DAILY 05/21/16 07/27/17 Budesonide/Formoterol 160/4.5 2 puff IH BIDR 04/06/17 07/27/17 [Symbicort 160/4.5] LORazepam [Ativan] 1 mg PO HS PRN 04/06/17 07/27/17 Oxygen 3 l NS AD 04/06/17 07/27/17 Roflumilast [Daliresp] 500 mcg PO DAILY 04/06/17 07/27/17 Omeprazole [PriLOSEC] 20 mg PO BIDAC 07/27/17 07/27/17 levoFLOXacin [Levofloxacin] 500 mg PO DAILY 07/27/17 07/27/17 predniSONE [PredniSONE] 20 mg PO DAILY 07/27/17 07/27/17 Allergies Allergy/AdvReac Type Severity Reaction Status Date / Time pantoprazole [From Protonix] Allergy See Verified 07/27/17 17:17 Comments Past Medical History - Past Medical History Medical history: Reports: COPD, CVA Surgical history: Reports: appendectomy, hysterectomy, orthopedic, other Psychiatric history: Reports: anxiety ICE SKATER history: Reports: no ICE SKATER history - Social History Smoking Status: Former smoker Smokeless Tobacco Status: No Alcohol use: Reports: occasionally Drug use: Reports: none Physical Exam - General General appearance: alert Course Vital Signs Temperature 98.1 F 07/27/17 14:05 Pulse Rate 88 07/27/17 14:05 Respiratory Rate 20 07/27/17 14:05 Blood Pressure 120/83 07/27/17 14:05 O2 Sat by Pulse Oximetry 97 07/27/17 14:05 Temperature 98.3 F 07/27/17 19:19 Pulse Rate 90 07/27/17 19:19 Respiratory Rate 16 07/27/17 19:19 Blood Pressure 105/63 07/27/17 19:19 O2 Sat by Pulse Oximetry 96 07/27/17 19:19 Oxygen Delivery Oxygen Delivery Nasal Cannula Medical Decision Making - Lab Data Result diagrams: 07/27/17 14:31 07/27/17 14:31 Lab Results 07/27/17 07/27/17 07/27/17 Range/Units 14:31 14:31 14:32 WBC 13.9 H (4.3-11.1) K/mcL RBC 4.32 (3.82-4.97) M/mcL Hgb 13.5 (11.5-15.4) g/dL Hct 40.8 (35.3-44.9) % MCV 94.4 (83.0-100.0) fL MCH 31.3 (28.0-33.3) pg MCHC 33.1 (31.6-35.5) g/dL RDW 15.0 H (11.5-14.5) % Plt Count 332 (140-400) K/mcL MPV 9.0 L (9.4-12.4) fL Immature Gran % 1.9 (0-4) % Seg Neutrophils % 68.7 % Lymphocytes % 20.6 % Monocytes % 6.1 % Eosinophils % 2.3 % Basophils % 0.4 % Neutrophils # 9.6 H (1.6-8.9) K/mcL Lymphocytes # 2.9 (0.6-4.6) K/mcL Monocytes # 0.9 (0.0-1.3) K/mcL Eosinophils # 0.3 (0.0-0.6) K/mcL Basophils # 0.1 (0.0-0.2) K/mcL D-Dimer 251 (0-500) ng/mLFEU Sodium 141 (136-145) mEq/L Potassium 3.7 (3.5-5.1) mEq/L Chloride 103 (98-107) mEq/L Carbon Dioxide 28 (23-29) mEq/L BUN 10 (6-20) mg/dL Creatinine 0.84 (0.60-1.20) mg/dL Est GFR ( Amer) > 60 (> 60) Est GFR (Non-Af Amer) > 60 (> 60) BUN/Creatinine Ratio 12 (6-26) Glucose 98 (70-105) mg/dL Calculated Osmolality 291 (280-300) Calcium 9.2 (8.6-10.3) mg/dL Troponin I < 0.03 (< 0.04) ng/mL Attestation Statement - Attestation Attestation: I examined this patient and my medical decision-making was reviewed with the Resident Physician. I agree with the documented findings, disposition and treatment plan as described except to the extent set forth below. Patient to the ED for any shortness of breath cough. Saw her PCP and was started on prednisone. States she is getting worse. On examination she is visibly dyspneic with tachypnea and accessory muscle use. Diffuse inspiratory expiratory wheezing. Plan. Patient's 30 had redo on nebs. She is improved but still dyspneic. We will give 3 more albuterol. Likely admission. Patient's workup is negative. Troponin negative. D-dimer negative. Chest x- ray clear. Elevation white blood cell count likely from her prednisone. We will admit.
--- NOTE | 2017-07-27 16:33 | Emergency Department Note ---
Disposition Clinical Impression: COPD exacerbation Disposition: Admitted As Inpatient Condition: Good Referrals: Librado Andre MD [Primary Care Provider] - Forms: ED Satisfaction Letter Time of Disposition: 17:16 General Adult HPI - General Chief complaint: ED Shortness of Breath/Dyspnea Stated complaint: KALIA Time Seen by Provider: 07/27/17 14:14 Nursing Notes Reviewed: Yes Vital Signs Reviewed: Yes - History of Present Illness HPI Narrative: Patient with history of COPD increased shortness of breath. Wheezing throughout. Unable to get relief of her shortness of breath at home. Is on a steroid taper with no relief. Pain Scale: 0 - Related Data Home Medications Medication Instructions Recorded Confirmed Albuterol Sulfate [Proair Hfa] 2 puff IH Q4HR PRN 06/10/15 06/18/17 Ipratropium/Albuterol Neb [Duoneb] 3 ml IH QID 06/10/15 06/18/17 Escitalopram [Lexapro] 10 mg PO DAILY 05/21/16 06/18/17 Budesonide/Formoterol 160/4.5 2 puff IH BIDR 04/06/17 06/18/17 [Symbicort 160/4.5] LORazepam [Ativan] 1 mg PO HS PRN 04/06/17 06/18/17 Oxygen 3 l NS AD 04/06/17 06/18/17 Roflumilast [Daliresp] 500 mcg PO DAILY 04/06/17 06/18/17 Omeprazole [PriLOSEC] 20 mg PO BIDAC 07/27/17 07/27/17 levoFLOXacin [Levofloxacin] 500 mg PO DAILY 07/27/17 07/27/17 predniSONE [PredniSONE] 20 mg PO DAILY 07/27/17 07/27/17 Allergies Allergy/AdvReac Type Severity Reaction Status Date / Time pantoprazole [From Protonix] Allergy See Verified 06/18/17 11:40 Comments All systems ED: reviewed and negative except as stated. Constitutional: Denies: fever, chills Cardiovascular: Denies: chest pain Respiratory: Reports: cough, dyspnea, wheezes Gastrointestinal: Denies: abdominal pain, nausea, vomiting, diarrhea Musculoskeletal: Denies: back pain, neck pain Integumentary: Denies: rash Past Medical History - Past Medical History Attestation: Yes The following information was validated with the patient. 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 Absent : tenderness - Respiratory Respiratory exam: Present: respiratory distress, wheezes, accessory muscle use, prolonged expiratory phase - Cardiovascular Cardiovascular exam: Present: regular rate, normal rhythm, normal heart sounds - Abdominal Exam Abdominal exam: Present: soft, Non-Tender. Absent: organomegaly - Extremities Exam Extremities exam: Present: normal inspection, full ROM, normal capillary refill. Absent: tenderness, pedal edema - Neurological Exam Neurological exam: Present: alert, oriented X3 - Psychiatric Psychiatric exam: Present: normal affect, normal mood - Skin Skin exam: Present: warm, dry, intact, normal color. Absent: rash, cyanosis, diaphoresis, erythema Course Course Narrative: Female patient presenting to the emergency complaining of shortness of breath. Has been present for over a week. Is currently on a steroid taper. Patient is dyspneic and tachypneic. She is on home oxygen at 3 L. She is unable to complete full sentences. Lung sounds are wheezing throughout. She sounds very tight. We will provide patient with DuoNeb get a basic lab workup a chest x- ray. I anticipate admission. She denies any recent illnesses or fevers. - Reevaluation(s) Reevaluation #1: Patient reassessed. Still has some mild wheezing throughout. States that she is feeling significantly better at this time. She is eating dinner and able to speak in full sentences. We will admit patient to the hospital for COPD exacerbation. She is agreeable with this. Time: 16:58 - Consultations Consultation #1: Dr Sommer accepted Pt in stable condition. Time: 17:03 Vital Signs Temperature 98.1 F 07/27/17 14:05 Pulse Rate 88 07/27/17 14:05 Respiratory Rate 20 07/27/17 14:05 Blood Pressure 120/83 07/27/17 14:05 O2 Sat by Pulse Oximetry 97 07/27/17 14:05 Temperature 98.1 F 07/27/17 14:31 Pulse Rate 110 07/27/17 17:09 Respiratory Rate 19 07/27/17 17:09 Blood Pressure 122/64 07/27/17 17:09 O2 Sat by Pulse Oximetry 97 07/27/17 17:09 Oxygen Delivery Oxygen Delivery Nasal Cannula Medical Decision Making - Medical Records Medical records reviewed: Yes I reviewed the patient's medical records. - Lab Data Lab results reviewed: Yes I reviewed the patient's lab results. Result diagrams: 07/27/17 14:31 07/27/17 14:31 Lab Results 07/27/17 07/27/17 07/27/17 Range/Units 14:31 14:31 14:32 WBC 13.9 H (4.3-11.1) K/mcL RBC 4.32 (3.82-4.97) M/mcL Hgb 13.5 (11.5-15.4) g/dL Hct 40.8 (35.3-44.9) % MCV 94.4 (83.0-100.0) fL MCH 31.3 (28.0-33.3) pg MCHC 33.1 (31.6-35.5) g/dL RDW 15.0 H (11.5-14.5) % Plt Count 332 (140-400) K/mcL MPV 9.0 L (9.4-12.4) fL Immature Gran % 1.9 (0-4) % Seg Neutrophils % 68.7 % Lymphocytes % 20.6 % Monocytes % 6.1 % Eosinophils % 2.3 % Basophils % 0.4 % Neutrophils # 9.6 H (1.6-8.9) K/mcL Lymphocytes # 2.9 (0.6-4.6) K/mcL Monocytes # 0.9 (0.0-1.3) K/mcL Eosinophils # 0.3 (0.0-0.6) K/mcL Basophils # 0.1 (0.0-0.2) K/mcL D-Dimer 251 (0-500) ng/mLFEU Sodium 141 (136-145) mEq/L Potassium 3.7 (3.5-5.1) mEq/L Chloride 103 (98-107) mEq/L Carbon Dioxide 28 (23-29) mEq/L BUN 10 (6-20) mg/dL Creatinine 0.84 (0.60-1.20) mg/dL Est GFR ( Amer) > 60 (> 60) Est GFR (Non-Af Amer) > 60 (> 60) BUN/Creatinine Ratio 12 (6-26) Glucose 98 (70-105) mg/dL Calculated Osmolality 291 (280-300) Calcium 9.2 (8.6-10.3) mg/dL Troponin I < 0.03 (< 0.04) ng/mL - Radiology Data Radiology results reviewed: Yes I reviewed the patient's radiology results. Chest X-Ray 07/27/17 14:14 IMPRESSION: No acute abnormality. D/ / Will Ulrich MD / Will Ulrich MD Interpreting Provider: Will Ulrich MD - EKG Data EKG #1 EKG attestation: Yes I reviewed and interpreted this EKG. EKG results narrative: Normal sinus rhythm at a rate of 87. RI interval is 122. QRS duration 84. QT 336. QTC is 380. No signs of acute ischemia. No significant change from previous EKG dated 06/18/2017.
[2017-07-27] MEDS ORDERED: Acetaminophen 325 MG TABLET PO PRN (21:54)
[2017-07-27] MEDS ORDERED: Naloxone 0.4 MG/ML INJ IVP PRN (21:54)
[2017-07-27] MEDS ORDERED: *HR* LORazepam 1 MG TABLET PO PRN (22:02)
--- NOTE | 2017-07-27 22:04 | Internal Med History&Physical ---
Date of Encounter: 07/27/17 Time of Encounter: 21:20 Internal Medicine - H&P: HPI Admitted From: Emergency Dept Plans for Post Hospital Care: Home History of present illness: Ms. Beckett is a 57 year old female GERD, COPD exacerbation, hyperkalemia, JOSH, lactic acidosis, leukocytosis, and PNA. Former smoker quit 2 years ago. Smoked 1PPD for 30 years. Pt states she has an appointment at [facility] August 10 to be evaluated for lung reduction versus lung transplant. Pt states she would need to be off steroids for a while prior to that. Patient reports that she has been increasingly SOB since 07/28/2017. States SOB progressively worse. Admits to productive cough with whitish sputum. She states she could not get warm but did not check her temperature. Chronically on 3 L NC of oxygen 08/09 In ED Vitals BP 105/63, HR 90, temp 98.3 WBC 13.9, K 4.32, 332. D dimer 251. Na 141, K 3.7, BUN 10, Cr 0.84. Troponin <0.03. Chest x ray IMPRESSION: No acute abnormality. Past Med Surg Social Fam HX - Past Medical History Medical history: COPD, CVA Additional medical history: Neuro stimulator for neck and arm pain. Psychiatric history: anxiety - Past Surgical History Surgical History: appendectomy, hysterectomy, orthopedic, other Additional surgical history: neurostimulator in back, neck surgery - Social History Smoking Status: Former smoker Smokeless Tobacco Status: No Alcohol use: occasionally Drug use: none - Family History Mother Living Status: Hx Family Cardiac Disorders: Yes Hx Family Respiratory Disorders: Yes Hx Family Cancer: No Hx Family GI Disorders: Yes (colostomy form colon tear colonoscopy) Hx Family Endocrine Disorder: No Hx Family Neuromuscular Disorders: No Hx Family Neurologic Disorders: No Hx Family HEENT Disorders: No Hx Family Autoimmune Disorders: No Father Living Status: Hx Family Cardiac Disorders: Yes Hx Family Cancer: Yes (lung cancer) Internal Medicine - H&P: Meds Albuterol Sulfate [Proair Hfa] 2 puff IH Q4HR PRN 06/10/15 [History] Ipratropium/Albuterol Neb [Duoneb] 3 ml IH QID 06/10/15 [History] Escitalopram [Lexapro] 10 mg PO DAILY 05/21/16 [History] Budesonide/Formoterol 160/4.5 [Symbicort 160/4.5] 2 puff IH BIDR 04/06/17 [ History] LORazepam [Ativan] 1 mg PO HS PRN 04/06/17 [History] Oxygen 3 l NS AD 04/06/17 [History] Roflumilast [Daliresp] 500 mcg PO DAILY 04/06/17 [History] Omeprazole [PriLOSEC] 20 mg PO BIDAC 07/27/17 [History] levoFLOXacin [Levofloxacin] 500 mg PO DAILY 07/27/17 [History] predniSONE [PredniSONE] 20 mg PO DAILY 07/27/17 [History] 3 Allergy/AdvReac Type Severity Reaction Status Date / Time pantoprazole [From Protonix] Allergy See Verified 07/27/17 17:17 Comments All Systems PM: A 10-system review of systems was performed and is negative for pertinent findings except as documented above in the HPI. - Constitutional Vitals: Temp Pulse Resp BP Pulse Ox 98.3 F 90 16 105/63 96 07/27/17 19:19 07/27/17 19:19 07/27/17 19:19 07/27/17 19:19 07/27/17 19:19 General appearance: Present: A&O X 3, no acute distress (+) - Head Head exam: Present: atraumatic, normocephalic - Eye Eye exam: Present: PERRL, conjuntiva pink, sclera anicteric Pupils: Present: PERRL - Neck Neck exam general surgery: Present: supple, trachea midline. Absent: lymphadenopathy - Respiratory Respiratory exam: Present: CTAB. Absent: accessory muscle use, rales, rhonchi, wheezes - Cardiovascular Cardiovascular exam: Present: RRR, +S1, +S2. Absent: diastolic murmur, gallop, rubs, systolic murmur - GI/Abdominal GI/Abdominal exam: Present: normal bowel sounds, soft, no peritoneal signs. Absent: distended, tenderness - Extremities Exam Extremities exam: Present: warm, radial pulses palpable and symmetrical. Absent : calf tenderness, cyanotic, pedal edema - Neurological Exam Neurological exam: Present: CN II-XII intact, oriented X3, no focal deficits. Absent: pronater drift, facial droop, speech deficit - Skin Skin exam: Present: dry, intact Internal Med - H&P Results - Labs CBC & Chem 7: 07/27/17 14:31 07/27/17 14:31 - Assessment and plan (1) Acute exacerbation of chronic obstructive airways disease Current Visit: No Status: Acute Assessment and plan: Will place pt on nebs, resume home oxygen, give antibiotic. Pt will need to follow up at [facility] as scheduled August 10 2017. (2) JOSH (obstructive sleep apnea) Current Visit: Yes Status: Acute Assessment and plan: BiPAP QHS. (3) Leukocytosis Current Visit: No Status: Acute Assessment and plan: Possibly due to steroid. Will place on antibiotic for now and can deescalate as deemed appropriate. Qualifiers: Qualified Code(s): D72.828 - Other elevated white blood cell count (4) DVT prophylaxis Current Visit: No Status: Chronic Assessment and plan: Lovenox - Time Spent With Patient Total time spent is greater than 50% in coordination of care (as documented) at patient's floor/unit and/or counseling patient: 25 - 35 minutes
[2017-07-27] MEDS: Azithromycin 500 MG in D5% in Water 250 ML IVPB SCH (22:43)
[2017-07-27] MEDS: Ipratropium/Albuterol Neb 3 ML IH SCH (22:52)
[2017-07-27] MEDS: Budesonide/Formoterol 160/4.5 MDI IH SCH (22:52)
[2017-07-28] MEDS: Ipratropium/Albuterol Neb 3 ML IH SCH ×4 (03:30→21:58)
[2017-07-28] MEDS: *HR* Enoxaparin 40 MG/0.4 ML SYRINGE SQ SCH (05:26)
[2017-07-28] MEDS: cefTRIAXone 1,000 MG in Water for inj. (sterile) 20 ML 10 ML IVP SCH (08:57)
[2017-07-28] MEDS ORDERED: (Roflumilast [Daliresp] 500 MCG) PO SCH (09:00)
[2017-07-28] MEDS ORDERED: predniSONE 20 MG TABLET PO SCH (09:00)
[2017-07-28] MEDS: Budesonide/Formoterol 160/4.5 MDI IH SCH ×2 (09:59→21:57)
[2017-07-28 12:42] LABS: Basophils % 0.2 %; Hematocrit 40.7 % (35.3-44.9); Hemoglobin 13.4 g/dL (11.5-15.4); Immature Granulocytes % 2.5 % (0-4); Lymphocytes # 1.2 K/mcL (0.6-4.6); Lymphocytes % 6.2 %; Mean Corpuscular HGB Conc 32.9 g/dL (31.6-35.5); Mean Corpuscular Hemoglobin 31.4 pg (28.0-33.3); Mean Corpuscular Volume 95.3 fL (83.0-100.0); Mean Platelet Volume 9.2 fL (9.4-12.4); Monocytes % 5.1 %; Platelet Count 353 K/mcL (140-400); Red Blood Count 4.27 M/mcL (3.82-4.97)
[2017-07-28 13:03] LABS: BUN/Creatinine Ratio 17 (6-26); Blood Urea Nitrogen 15 mg/dL (6-20); Calcium 9.6 mg/dL (8.6-10.3); Carbon Dioxide 29 mEq/L (23-29); Chloride 98 mEq/L (98-107); Glucose 110 mg/dL (70-105); Osmolality,Calculated 285 (280-300); Potassium 3.9 mEq/L (3.5-5.1); Sodium 137 mEq/L (136-145); eGFR For African Americans > 60 (> 60); eGFR For Non-African Americans > 60 (> 60)
[2017-07-28] MEDS: predniSONE 20 MG TABLET PO SCH (17:04)
--- NOTE | 2017-07-28 18:20 | Electrocardiograph Report ---
[place] [id number] Test Date: 2017-07-27 Pat Name: Mae Beckett Department: 104 Room: 3B43 Gender: Dictaphone Mechanic: KARELY : 1960 Requested By: Velia Russ Order Number: [id number] Reading MD: Duy Del Valle Measurements Intervals Converse Rate: 87 P: 90 ND: 122 QRS: 68 QRSD: 84 T: 63 QT: 336 QTc: 380 Interpretive Statements SINUS RHYTHM Electronically Signed On 07-28-2017 18:18:50 EDT by Duy Del Valle
--- NOTE | 2017-07-28 18:22 | Internal Med Progress Note ---
Date of Encounter: 07/28/17 Time of Encounter: 18:20 - Assessment and plan (1) Acute exacerbation of chronic obstructive airways disease Current Visit: No Status: Acute Assessment and plan: Pt states she feels much better. Currently on BiPAP per her request. She state still coughing up yellowish sputum. Denies CP. Afebrile. leukocytosis likely due to steroids. Pt states she has an appointment at [facility] August 10 to be evaluated for lung reduction versus lung transplant. (2) JOSH (obstructive sleep apnea) Current Visit: Yes Status: Acute Assessment and plan: BiPAP (3) Leukocytosis Current Visit: No Status: Acute Assessment and plan: Likely steroid induced. Qualifiers: Qualified Code(s): D72.828 - Other elevated white blood cell count (4) DVT prophylaxis Current Visit: No Status: Chronic Assessment and plan: Lovenox - Time Spent With Patient Total time spent is greater than 50% in coordination of care (as documented) at patient's floor/unit and/or counseling patient: - Subjective Interval history: Ms. Beckett is a 57 year old female GERD, COPD exacerbation, hyperkalemia, JOSH, lactic acidosis, leukocytosis, and PNA. Former smoker quit 2 years ago. Smoked 1PPD for 30 years. Pt states she has an appointment at [facility] August 10 to be evaluated for lung reduction versus lung transplant. - Constitutional Vitals: Temp Pulse Resp BP Pulse Ox 98.0 F 108 17 114/76 96 07/28/17 16:27 07/28/17 16:27 07/28/17 16:27 07/28/17 16:27 07/28/17 16:27 General appearance: Present: A&O X 3, no acute distress (+) - Head Head exam: Present: atraumatic, normocephalic - Eye Eye exam: Present: PERRL, conjuntiva pink, sclera anicteric Pupils: Present: PERRL - Neck Neck exam general surgery: Present: supple, trachea midline. Absent: lymphadenopathy - Respiratory Respiratory exam: Present: CTAB. Absent: accessory muscle use, rales, rhonchi, wheezes Additional comments: wheezing resolved - Cardiovascular Cardiovascular exam: Present: RRR, +S1, +S2. Absent: diastolic murmur, gallop, rubs, systolic murmur - GI/Abdominal GI/Abdominal exam: Present: normal bowel sounds, soft, no peritoneal signs. Absent: distended, tenderness - Extremities Exam Extremities exam: Present: warm, radial pulses palpable and symmetrical. Absent : calf tenderness, cyanotic, pedal edema - Neurological Exam Neurological exam: Present: CN II-XII intact, oriented X3, no focal deficits. Absent: pronater drift, facial droop, speech deficit - Skin Skin exam: Present: dry, intact Internal Medicine: Result - Labs CBC & Chem 7: 07/28/17 12:22 07/28/17 12:22 Labs: Short CBC 07/28/17 Range/Units 12:22 WBC 19.7 H (4.3-11.1) K/mcL Hgb 13.4 (11.5-15.4) g/dL Hct 40.7 (35.3-44.9) % Plt Count 353 (140-400) K/mcL Neutrophils # 17.0 H (1.6-8.9) K/mcL BMP 07/28/17 12:22 Sodium 137 Potassium 3.9 Chloride 98 Carbon Dioxide 29 BUN 15 Creatinine 0.88 Glucose 110 H Calcium 9.6 - ABG Interpretation ABG results: PT/INR, D-dimer D-Dimer 251 ng/mLFEU (0-500) 07/27/17 14:32 Consult Discharge Plan - Plan Referrals: Librado Andre MD [Primary Care Provider] -
[2017-07-28] MEDS: Azithromycin 500 MG in D5% in Water 250 ML IVPB SCH (21:26)
[2017-07-29] MEDS: Ipratropium/Albuterol Neb 3 ML IH SCH (04:54)
[2017-07-29] MEDS: *HR* Enoxaparin 40 MG/0.4 ML SYRINGE SQ SCH (05:13)
[2017-07-29 07:08] VITALS: BP 113/78
[2017-07-29 08:06] LABS: Basophils % 0.3 %; Eosinophils # 0.1 K/mcL (0.0-0.6); Eosinophils % 0.9 %; Immature Granulocytes % 2.6 % (0-4); Lymphocytes # 2.2 K/mcL (0.6-4.6); Mean Corpuscular HGB Conc 32.5 g/dL (31.6-35.5); Mean Corpuscular Volume 95.5 fL (83.0-100.0); Mean Platelet Volume 9.2 fL (9.4-12.4); Monocytes # 0.7 K/mcL (0.0-1.3); Monocytes % 5.1 %; Neutrophils # 10.3 K/mcL (1.6-8.9); Platelet Count 297 K/mcL (140-400); Red Blood Count 3.77 M/mcL (3.82-4.97); Red Cell Distribution Width 15.3 % (11.5-14.5); Segmented Neutrophils % 75.1 %
[2017-07-29 08:09] LABS: Hemoglobin 11.7 g/dL (11.5-15.4)
[2017-07-29] MEDS: predniSONE 20 MG TABLET PO SCH (08:29)
[2017-07-29] MEDS: cefTRIAXone 1,000 MG in Water for inj. (sterile) 20 ML 10 ML IVP SCH (08:29)
--- NOTE | 2017-07-29 09:56 | Discharge Summary ---
- NOTES TO OUTPATIENT PROVIDER Notes to Outpatient Provider: Acute COPD Date of Encounter: 07/29/17 Time of Encounter: 08:40 - Discharge Diagnosis (1) COPD exacerbation Priority: Primary Status: Acute (2) JOSH (obstructive sleep apnea) Priority: Secondary Status: Chronic (3) Chronic respiratory failure Priority: Secondary Status: Chronic Qualifiers: Respiratory failure complication: hypoxia Qualified Code(s): J96.11 - Chronic respiratory failure with hypoxia Hospital course: Ms. Beckett is a 57 year old female with the above medical problems, who was admitted with worsening cough and shortness of breath. She was noted to be in acute exacerbation of COPD, started on IV steroids and empiric IV antibiotics along with breathing treatments and supplemental oxygen. Chest x-ray showed no pneumonia. Patient significantly improved on this regimen, currently medically stable for discharge on oral antibiotics and steroids. She does have home oxygen at 3 L/m via nasal cannula, she is down to her baseline oxygen requirements. Discharge discussed with: patient, nurse - Time Spent with Patient Total time spent providing and/or coordinating discharge services: Greater than 30 minutes (40 min) - Discharge Medications Prescriptions: predniSONE [PredniSONE] 10 mg PO DAILY #7 tablet Home Medications: Albuterol Sulfate [Proair Hfa] 2 puff IH Q4HR PRN 06/10/15 [History] Ipratropium/Albuterol Neb [Duoneb] 3 ml IH QID 06/10/15 [History] Escitalopram [Lexapro] 10 mg PO DAILY 05/21/16 [History] Budesonide/Formoterol 160/4.5 [Symbicort 160/4.5] 2 puff IH BIDR 04/06/17 [ History] LORazepam [Ativan] 1 mg PO HS PRN 04/06/17 [History] Oxygen 3 l NS AD 04/06/17 [History] Roflumilast [Daliresp] 500 mcg PO DAILY 04/06/17 [History] Omeprazole [PriLOSEC] 20 mg PO BIDAC 07/27/17 [History] levoFLOXacin [Levofloxacin] 500 mg PO DAILY 07/27/17 [History] predniSONE [PredniSONE] 10 mg PO DAILY #7 tablet 07/29/17 [Rx] Allergies/Adverse Reactions: 3 Allergy/AdvReac Type Severity Reaction Status Date / Time pantoprazole [From Protonix] Allergy See Verified 07/27/17 17:17 Comments Date of admission: 07/27/17 18:24 Primary care physician: Librado Andre MD Consults: 07/27/17 21:59 Consult to Nurse Navigator [CONS] Routine Comment: Discharging clinician: Fawn Valdivia Anticipated date of discharge: 07/29/17 - Constitutional Vitals: Temp Pulse Resp BP Pulse Ox 97.9 F 92 20 113/78 97 07/29/17 06:54 07/29/17 06:54 07/29/17 06:54 07/29/17 06:54 07/29/17 06:54 General appearance: Present: A&O X 3, answers questions appropriately - Respiratory Respiratory exam: Present: CTAB, rhonchi. Absent: accessory muscle use, rales, wheezes - Cardiovascular Cardiovascular exam: Present: RRR, +S1, +S2. Absent: diastolic murmur, gallop, rubs, systolic murmur - Patient Status Disposition: Home, Self-Care Condition: Good Functional capacity at discharge: independent ambulation Overall status at discharge: patient is progressing back to baseline - Discharge Instructions Instructions: Prednisone (By mouth), Chronic Obstructive Pulmonary Disease (DC) , Pneumonia (DC) Follow Up With: Librado Andre MD [Primary Care Provider] - 08/04/17 9:30 am (Please follow up as schedule...) Additional Instructions: F/up with PCP in 1-2 weeks F/up with [facility] Pulmonology as scheduled - Diet and Activity Activity: resume usual activities as tolerated, wear oxygen at all times Diet: low fat, low cholesterol, low salt diet
[2017-07-31] MEDS ORDERED: predniSONE 10 MG TABLET PO SCH (09:00)
== END 2017-07-29 10:37 | disposition home or self-care (01) ==
LOC: EMEROO 14:03 → 3BNU 14:03 → SUATTDRO 18:24 → 3BNU 19:01 → 2ANU 07-28 20:24
PROVIDERS: ADMIT Internal Medicine; ATTEND Internal Medicine

== ENCOUNTER 2017-11-09 17:41 | Inpatient (IN) ==
[2017-11-09] MEDS ORDERED: Ipratropium/Albuterol Neb 3 ML IH ONE (18:19)
[2017-11-09] MEDS ORDERED: methylPREDNISolone 125 MG/2 ML VIAL IVP ONE (18:20)
[2017-11-09] MEDS ORDERED: 0.9 % Sodium Chloride 500 ML IVC ONE (18:31)
--- NOTE | 2017-11-09 18:35 | Emergency Department Note ---
Disposition Clinical Impression: COPD exacerbation, Tobacco use Disposition: Admitted As Inpatient Condition: Fair Time of Disposition: 19:46 SOB HPI - General Chief Complaint: ED Shortness of Breath/Dyspnea Stated Complaint: exacerbation COPD Time Seen by Provider: 11/09/17 18:05 Source: patient, family Mode of arrival: ambulatory Limitations: no limitations Nursing Notes Reviewed: Yes Vital Signs Reviewed: Yes - History of Present Illness 57-year-old female with history of COPD presents for evaluation of dyspnea. Patient states she has been on antibiotics 2 as well as on steroids over the past couple weeks. 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 States that she also saw her primary care doctor last week and was started on Levaquin and steroids. Patient notes symptoms did not improve but then has recurred. Notes worsening dyspnea started this morning. Productive cough. No fevers. No chest pain. No abdominal pain or nausea vomiting. Patient has baseline 3 L requirement. Patient has increased use of her aerosols at home. Patient denies any other symptoms. - Related Data Home Medications Medication Instructions Recorded Confirmed Albuterol Sulfate [Proair Hfa] 2 puff IH Q4HR PRN 06/10/15 11/09/17 Ipratropium/Albuterol Neb [Duoneb] 3 ml IH QID 06/10/15 11/09/17 Escitalopram [Lexapro] 10 mg PO DAILY 05/21/16 11/09/17 Budesonide/Formoterol 160/4.5 2 puff IH BIDR 04/06/17 11/09/17 [Symbicort 160/4.5] LORazepam [Ativan] 1 mg PO HS PRN 04/06/17 11/09/17 Oxygen 3 l NS AD 04/06/17 11/09/17 Roflumilast [Daliresp] 500 mcg PO DAILY 04/06/17 11/09/17 Omeprazole [PriLOSEC] 20 mg PO BIDAC 07/27/17 11/09/17 Montelukast [Singulair] 10 mg PO DAILY 09/22/17 11/09/17 Tiotropium [Spiriva] 18 mcg IH DAILY 09/22/17 11/09/17 levoFLOXacin [Levaquin] 500 mg PO DAILY 11/09/17 11/09/17 predniSONE [PredniSONE] 20 mg PO DAILY 11/09/17 11/09/17 Allergies Allergy/AdvReac Type Severity Reaction Status Date / Time pantoprazole [From Protonix] Allergy See Verified 10/05/17 06:54 Comments All systems ED: reviewed and negative except as stated. 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 VP [employer]USTOMER [employer] STRATEGY history - Social History Smoking Status: Former smoker Smokeless Tobacco Status: No Alcohol use: Reports: occasionally Drug use: Reports: none Physical Exam - General Limitations: no limitations General appearance: alert, in no apparent distress - Head Head exam: atraumatic, normocephalic, normal inspection - Eye Eye exam: Present: normal appearance, PERRL, EOMI - ENT ENT exam: normal exam, mucous membranes moist - Neck Neck exam: Present: normal inspection - Chest Chest inspection: Present: normal inspection, symmetric chest wall rise - Respiratory Respiratory exam: Present: wheezes (Respiratory no current wheezes throughout), accessory muscle use, prolonged expiratory phase - Cardiovascular Cardiovascular exam: Present: regular rate, normal rhythm. Absent: systolic murmur - Abdominal Exam Abdominal exam: Present: soft, Non-Tender - Extremities Exam Extremities exam: Present: normal inspection. Absent: pedal edema - Expanded Lower Extremity Exam Neurovascular/Tendon exam: Present: normal capillary refill - Neurological Exam Neurological exam: Present: alert, oriented X3 - Skin Skin exam: Present: warm, dry, intact, normal color Course Course Narrative: Patient seen and examined. Patient does have increased work of breathing history of COPD. Patient was tachypnea can. Patient will be placed on BiPAP aerosols steroids cardiopulmonary screening labs and likely admission for further respiratory support. - Reevaluation(s) Reevaluation #1: Patient's resting comfortably in no acute distress. Patient's on BiPAP. Time: 22:03 Vital Signs Temperature 98.2 F 11/09/17 17:45 Pulse Rate 102 11/09/17 17:45 Respiratory Rate 22 11/09/17 17:45 Blood Pressure 132/78 11/09/17 17:45 O2 Sat by Pulse Oximetry 97 11/09/17 17:45 Temperature 98.2 F 11/09/17 18:27 Pulse Rate 71 11/09/17 21:51 Respiratory Rate 16 11/09/17 21:51 Blood Pressure 121/67 11/09/17 21:51 O2 Sat by Pulse Oximetry 100 11/09/17 21:51 Oxygen Delivery Oxygen Delivery Bipap Shortness of Breath/Dyspnea - MDM Narrative Medical decision making narrative: Patient with history of COPD presents for an exacerbation. Increased work of breathing applied BiPAP in patients resting comfortably on BiPAP. Treated aerosols nebs. Patient's maximized at home and will not need close observation with increased pulmonary aerosols and hygiene. Patient was started on antibiotics given severity of her respiratory distress. Patient's symptoms are less likely consistent with PE or ACS. - Lab Data Lab results reviewed: Yes I reviewed the patient's lab results. Result diagrams: 11/09/17 18:35 11/09/17 18:35 Lab Results 11/09/17 11/09/17 11/09/17 Range/Units 18:35 18:35 18:35 WBC 14.0 H (4.3-11.1) K/mcL RBC 4.45 (3.82-4.97) M/mcL Hgb 13.7 (11.5-15.4) g/dL Hct 41.1 (35.3-44.9) % MCV 92.4 (83.0-100.0) fL MCH 30.8 (28.0-33.3) pg MCHC 33.3 (31.6-35.5) g/dL RDW 15.6 H (11.5-14.5) % Plt Count 423 H (140-400) K/mcL MPV 9.4 (9.4-12.4) fL Sodium 140 (136-145) mEq/L Potassium 4.1 (3.5-5.1) mEq/L Chloride 103 (98-107) mEq/L Carbon Dioxide 28 (23-29) mEq/L BUN 10 (6-20) mg/dL Creatinine 0.88 (0.60-1.20) mg/dL Est GFR ( Amer) > 60 (> 60) Est GFR (Non-Af Amer) > 60 (> 60) BUN/Creatinine Ratio 11 (6-26) Glucose 126 H (70-105) mg/dL Calculated Osmolality 291 (280-300) Lactic Acid (0.5-2.2) mmol/L Calcium 9.7 (8.6-10.3) mg/dL Troponin I < 0.03 (< 0.04) ng/mL B-Natriuretic Peptide 43 (Less than 100) pg/mL 11/09/17 Range/Units 18:46 WBC (4.3-11.1) K/mcL RBC (3.82-4.97) M/mcL Hgb (11.5-15.4) g/dL Hct (35.3-44.9) % MCV (83.0-100.0) fL MCH (28.0-33.3) pg MCHC (31.6-35.5) g/dL RDW (11.5-14.5) % Plt Count (140-400) K/mcL MPV (9.4-12.4) fL Sodium (136-145) mEq/L Potassium (3.5-5.1) mEq/L Chloride (98-107) mEq/L Carbon Dioxide (23-29) mEq/L BUN (6-20) mg/dL Creatinine (0.60-1.20) mg/dL Est GFR ( Amer) (> 60) Est GFR (Non-Af Amer) (> 60) BUN/Creatinine Ratio (6-26) Glucose (70-105) mg/dL Calculated Osmolality (280-300) Lactic Acid 1.2 (0.5-2.2) mmol/L Calcium (8.6-10.3) mg/dL Troponin I (< 0.04) ng/mL B-Natriuretic Peptide (Less than 100) pg/mL - Radiology Data Radiology results reviewed: Yes I reviewed the patient's radiology results. Chest X-Ray 11/09/17 18:30 IMPRESSION: No significant findings in the chest. D/ / Newton Baez MD / Newton Baez MD Interpreting Provider: Newton Baez MD S.B.A.R. - S.B.A.R. Situation: Demographics Background: Presenting Complaint Assessment: Vital Signs, Patient/Family Expectation Recommendation: Barrier(s) to disposition, Recommendation based on pending studies, treatments, or consults Vinnie Report Given to: Dr. Mayi [place] Repor Time: 19:45
--- NOTE | 2017-11-09 19:05 | Emergency Department Note ---
Disposition Clinical Impression: COPD exacerbation, Tobacco use Disposition: Admitted As Inpatient Condition: Fair Referrals: Librado Andre MD [Primary Care Provider] - Forms: ED Satisfaction Letter General Adult HPI - General Chief complaint: ED Shortness of Breath/Dyspnea Stated complaint: exacerbation COPD Time Seen by Provider: 11/09/17 18:05 Source: patient, family Mode of arrival: ambulatory Limitations: no limitations - History of Present Illness Pain Scale: 0 - Related Data Home Medications Medication Instructions Recorded Confirmed Albuterol Sulfate [Proair Hfa] 2 puff IH Q4HR PRN 06/10/15 11/09/17 Ipratropium/Albuterol Neb [Duoneb] 3 ml IH QID 06/10/15 11/09/17 Escitalopram [Lexapro] 10 mg PO DAILY 05/21/16 11/09/17 Budesonide/Formoterol 160/4.5 2 puff IH BIDR 04/06/17 11/09/17 [Symbicort 160/4.5] LORazepam [Ativan] 1 mg PO HS PRN 04/06/17 11/09/17 Oxygen 3 l NS AD 04/06/17 11/09/17 Roflumilast [Daliresp] 500 mcg PO DAILY 04/06/17 11/09/17 Omeprazole [PriLOSEC] 20 mg PO BIDAC 07/27/17 11/09/17 Montelukast [Singulair] 10 mg PO DAILY 09/22/17 11/09/17 Tiotropium [Spiriva] 18 mcg IH DAILY 09/22/17 11/09/17 levoFLOXacin [Levaquin] 500 mg PO DAILY 11/09/17 11/09/17 predniSONE [PredniSONE] 20 mg PO DAILY 11/09/17 11/09/17 Allergies Allergy/AdvReac Type Severity Reaction Status Date / Time pantoprazole [From Protonix] Allergy See Verified 10/05/17 06:54 Comments Constitutional: Denies: fever Cardiovascular: Denies: chest pain Respiratory: Reports: cough, dyspnea Gastrointestinal: Denies: abdominal pain, nausea, vomiting Past Medical History - Past Medical History Medical history: Reports: arthritis, asthma, COPD, CVA, DVT, GERD, migraine Surgical history: Reports: appendectomy, hysterectomy, orthopedic, other Psychiatric history: Reports: anxiety 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 - Social History Smoking Status: Former smoker Smokeless Tobacco Status: No Alcohol use: Reports: occasionally Drug use: Reports: none Physical Exam - General Limitations: no limitations General appearance: alert, in no apparent distress Course Vital Signs Temperature 98.2 F 11/09/17 17:45 Pulse Rate 102 11/09/17 17:45 Respiratory Rate 22 11/09/17 17:45 Blood Pressure 132/78 11/09/17 17:45 O2 Sat by Pulse Oximetry 97 11/09/17 17:45 Temperature 98.2 F 11/09/17 18:27 Pulse Rate 102 11/09/17 18:27 Respiratory Rate 22 11/09/17 18:53 Blood Pressure 132/78 11/09/17 18:27 O2 Sat by Pulse Oximetry 99 11/09/17 18:53 Oxygen Delivery Oxygen Delivery Nasal Cannula Medical Decision Making - Lab Data Result diagrams: 11/09/17 18:35 11/09/17 18:35 Lab Results 11/09/17 11/09/17 11/09/17 Range/Units 18:35 18:35 18:35 WBC 14.0 H (4.3-11.1) K/mcL RBC 4.45 (3.82-4.97) M/mcL Hgb 13.7 (11.5-15.4) g/dL Hct 41.1 (35.3-44.9) % MCV 92.4 (83.0-100.0) fL MCH 30.8 (28.0-33.3) pg MCHC 33.3 (31.6-35.5) g/dL RDW 15.6 H (11.5-14.5) % Plt Count 423 H (140-400) K/mcL MPV 9.4 (9.4-12.4) fL Sodium 140 (136-145) mEq/L Potassium 4.1 (3.5-5.1) mEq/L Chloride 103 (98-107) mEq/L Carbon Dioxide 28 (23-29) mEq/L BUN 10 (6-20) mg/dL Creatinine 0.88 (0.60-1.20) mg/dL Est GFR ( Amer) > 60 (> 60) Est GFR (Non-Af Amer) > 60 (> 60) BUN/Creatinine Ratio 11 (6-26) Glucose 126 H (70-105) mg/dL Calculated Osmolality 291 (280-300) Lactic Acid (0.5-2.2) mmol/L Calcium 9.7 (8.6-10.3) mg/dL Troponin I < 0.03 (< 0.04) ng/mL B-Natriuretic Peptide 43 (Less than 100) pg/mL 11/09/17 Range/Units 18:46 WBC (4.3-11.1) K/mcL RBC (3.82-4.97) M/mcL Hgb (11.5-15.4) g/dL Hct (35.3-44.9) % MCV (83.0-100.0) fL MCH (28.0-33.3) pg MCHC (31.6-35.5) g/dL RDW (11.5-14.5) % Plt Count (140-400) K/mcL MPV (9.4-12.4) fL Sodium (136-145) mEq/L Potassium (3.5-5.1) mEq/L Chloride (98-107) mEq/L Carbon Dioxide (23-29) mEq/L BUN (6-20) mg/dL Creatinine (0.60-1.20) mg/dL Est GFR ( Amer) (> 60) Est GFR (Non-Af Amer) (> 60) BUN/Creatinine Ratio (6-26) Glucose (70-105) mg/dL Calculated Osmolality (280-300) Lactic Acid 1.2 (0.5-2.2) mmol/L Calcium (8.6-10.3) mg/dL Troponin I (< 0.04) ng/mL B-Natriuretic Peptide (Less than 100) pg/mL Attestation Statement - Attestation Attestation: I examined this patient and my medical decision-making was reviewed with the Resident Physician. I agree with the documented findings, disposition and treatment plan as described except to the extent set forth below. Patient presents to the ED with chief shortness of breath. Cough. History of COPD. Onset 1 week ago and acutely worsened today. History of similar episodes. states she has been way worsen this before. On examination she is tachypneic in mild distress with inspiratory expiratory wheezing. Plan. Cardiac workup. Nebs and steroids. BiPAP trial. Patient doing better. Workup reviewed. Started on azithromycin. Admitted to medicine. Chest X-Ray 11/09/17 18:30 IMPRESSION: No significant findings in the chest. D/ / Newton Baez MD / Newton Baez MD Interpreting Provider: Newton Baez MD
[2017-11-09 19:09] LABS: Hematocrit 41.1 % (35.3-44.9); Hemoglobin 13.7 g/dL (11.5-15.4); Mean Corpuscular HGB Conc 33.3 g/dL (31.6-35.5); Mean Corpuscular Hemoglobin 30.8 pg (28.0-33.3); Mean Corpuscular Volume 92.4 fL (83.0-100.0); Mean Platelet Volume 9.4 fL (9.4-12.4); Platelet Count 423 K/mcL (140-400); Red Blood Count 4.45 M/mcL (3.82-4.97); Red Cell Distribution Width 15.6 % (11.5-14.5)
[2017-11-09] MEDS ORDERED: Azithromycin 500 MG in D5% in Water 250 ML IVPB ONE (19:33)
[2017-11-09] MEDS ORDERED: cefTRIAXone 1,000 MG in Water for inj. (sterile) 20 ML 10 ML IVP ONE (19:33)
[2017-11-09 19:36] LABS: Troponin I < 0.03 ng/mL (< 0.04)
[2017-11-09 19:42] LABS: BUN/Creatinine Ratio 11 (6-26); Blood Urea Nitrogen 10 mg/dL (6-20); Calcium 9.7 mg/dL (8.6-10.3); Carbon Dioxide 28 mEq/L (23-29); Chloride 103 mEq/L (98-107); Glucose 126 mg/dL (70-105); Osmolality,Calculated 291 (280-300); Potassium 4.1 mEq/L (3.5-5.1); Sodium 140 mEq/L (136-145); eGFR For Non-African Americans > 60 (> 60)
[2017-11-10] MEDS ORDERED: Albuterol 2.5 MG/3 ML NEBULIZER IH PRN
[2017-11-10] MEDS: Ipratropium/Albuterol Neb 3 ML IH SCH ×7 (01:22→23:08)
[2017-11-10] MEDS ORDERED: Naloxone 0.4 MG/ML INJ IVP PRN (04:48)
--- NOTE | 2017-11-10 05:09 | Internal Med History&Physical ---
Date of Encounter: 11/10/17 Time of Encounter: 04:30 Internal Medicine - H&P: HPI Chief complaint: COPD exacerbation Admitted From: Emergency Dept Plans for Post Hospital Care: Home History of present illness: Ms. Beckett is a 57 year old female Patient presented to the emergency room with a chief complaint of shortness of breath. She has been seen by 2 providers outpatient for this, and was started on antibiotics and steroids on 2 different occasions with 2 different providers. She saw termite inspector about 2 weeks ago and then again her primary care provider about 1 week ago. She continued to have productive cough, but denied fevers, chest pain, abdominal pain, nausea, vomiting, diarrhea and constipation. She has tried using breathing treatments at home but has not helped. She came to the emergency room for further evaluation. At home she uses 3 L of oxygen most of the time, she has a history of smoking 1 pack per day but says that she quit 2-1/2 years ago. She was recently hospitalized about a month ago and was treated for COPD exacerbation. In the emergency room chest x-ray showed no acute abnormalities, the lungs were clear and well expanded. Troponins were negative, CBC and BMP were near normal , only elevated white count of 14.0 . She was given IV fluids, breathing treatments, azithromycin, ceftriaxone and steroids. Blood cultures were drawn and she was started on BiPAP and sent to the medical floor. Her initial vitals she did meet SIRS criteria with elevated pulse and respiratory rate, and her white count was elevated to 14.0 but she did not have a fever and her lactate was 1.2. Upon my assessment patient denies complaints. She does have 2 small circular wounds to the lower extremities but she says are the result of mosquito bites that she has scratched and picked at for several weeks now. Past Med Surg Social Fam HX - Past Medical History Medical history: arthritis, asthma, COPD, CVA, DVT, GERD, migraine Additional medical history: Neuro stimulator for neck and arm pain. Psychiatric history: anxiety - Past Surgical History Surgical History: appendectomy, hysterectomy, orthopedic, other Additional surgical history: Neurostimulator in back. - Social History Smoking Status: Former smoker Smokeless Tobacco Status: No Alcohol use: occasionally Drug use: none - Family History Mother Living Status: Hx Family Cardiac Disorders: Yes Hx Family Respiratory Disorders: Yes Hx Family Cancer: No Hx Family GI Disorders: Yes (colostomy form colon tear colonoscopy) Hx Family Endocrine Disorder: No Hx Family Neuromuscular Disorders: No Hx Family Neurologic Disorders: No Hx Family HEENT Disorders: No Hx Family Autoimmune Disorders: No Father Living Status: Hx Family Cardiac Disorders: Yes (Father-pacemaker) Hx Family Respiratory Disorders: Yes (Mother, Brothers, Sisters) Hx Family Cancer: Yes Hx Family GI Disorders: No Hx Family Endocrine Disorder: Yes (sister-thyroid) Hx Family Neuromuscular Disorders: No Hx Family Neurologic Disorders: Yes (Father-stroke) Hx Family HEENT Disorders: Yes (Mother-meniere's disease) Hx Family Autoimmune Disorders: No Internal Medicine - H&P: Meds Albuterol Sulfate [Proair Hfa] 2 puff IH Q4HR PRN 06/10/15 [History] Ipratropium/Albuterol Neb [Duoneb] 3 ml IH Q4HR 06/10/15 [History] Escitalopram [Lexapro] 10 mg PO DAILY 05/21/16 [History] Budesonide/Formoterol 160/4.5 [Symbicort 160/4.5] 2 puff IH BIDR 04/06/17 [ History] LORazepam [Ativan] 1 mg PO HS PRN 04/06/17 [History] Oxygen 3 l NS AD 04/06/17 [History] Roflumilast [Daliresp] 500 mcg PO DAILY 04/06/17 [History] Omeprazole [PriLOSEC] 20 mg PO BIDAC 07/27/17 [History] Montelukast [Singulair] 10 mg PO DAILY 09/22/17 [History] Tiotropium [Spiriva] 18 mcg IH DAILY 09/22/17 [History] levoFLOXacin [Levaquin] 500 mg PO DAILY 11/09/17 [History] predniSONE [PredniSONE] 20 mg PO DAILY 11/09/17 [History] 3 Allergy/AdvReac Type Severity Reaction Status Date / Time pantoprazole [From Protonix] Allergy See Verified 10/05/17 06:54 Comments All Systems PM: A 10-system review of systems was performed and is negative for pertinent findings except as documented above in the HPI. - Constitutional Vitals: Temp Pulse Resp BP Pulse Ox 97.5 F L 96 26 131/88 100 11/09/17 23:29 11/09/17 23:29 11/10/17 04:36 11/09/17 23:29 11/10/17 04:36 General appearance: Present: cooperative, A&O X 3, pleasant, no acute distress, answers questions appropriately Exam: As above - Head Head exam: Present: normal inspection Additional comments: On BiPAP - Eye Eye exam: Present: EOMI, normal appearance - Neck Neck exam general surgery: Present: full ROM - Respiratory Respiratory exam: Present: wheezes. Absent: decreased breath sounds, rales, respiratory distress, rhonchi - Cardiovascular Cardiovascular exam: Present: RRR. Absent: diastolic murmur, systolic murmur - GI/Abdominal GI/Abdominal exam: Present: normal bowel sounds, soft. Absent: tenderness - Extremities Exam Extremities exam: Present: warm, radial pulses palpable and symmetrical. Absent : calf tenderness, pedal edema, tenderness - Neurological Exam Neurological exam: Present: no focal deficits, strengths equal and symetr throughout. Absent: motor sensory deficit, facial droop, speech deficit - Skin Skin exam: Present: dry, normal color, warm. Absent: rash, vesicles Additional comments: Left ankle small 0.5cm wound without erythema, circular in shape Right lower best small 0.3cm wound without erythema circular in shape Internal Med - H&P Results - Labs CBC & Chem 7: 11/10/17 05:37 11/10/17 05:37 - Assessment and plan (1) Acute exacerbation of chronic obstructive airways disease Current Visit: No Status: Acute Assessment and plan: Similar to previous presentation from 1 month ago patient was wheezing on exam. No evidence of pneumonia on chest x-ray, patient has completed 2 rounds of antibiotics outpatient for this. Do not suspect infection at this time. Azithromycin 500 mg IV initiated in the ER, continue. Continue breathing treatments. Continue oxygen supplementation and BiPAP at night. Prednisone 40 mg daily Continuous pulse oximetry monitoring (2) SIRS (systemic inflammatory response syndrome) Current Visit: Yes Status: Acute Assessment and plan: Likely secondary to COPD exacerbation. Do not suspect infection at this time. Blood cultures were drawn in the emergency room we will follow-up results when they become available. Patient was given a dose of ceftriaxone in the ER, but we will not be continuing this at this time. (3) Leukocytosis Current Visit: No Status: Acute Assessment and plan: Patient was started on steroids outpatient, which can explain elevated white blood count. Continue to monitor for signs of infection Qualifiers: Leukocytosis type: leukemoid reaction Qualified Code(s): D72.823 - Leukemoid reaction (4) JOSH (obstructive sleep apnea) Current Visit: No Status: Chronic Assessment and plan: Continue BiPAP at night (5) Leg wound, left Current Visit: Yes Status: Acute Assessment and plan: Larger than right wound, possibly 0.5 cm. Likely result of patient picking and scratching at the scab and wound over the last few weeks. Does not appear infected, no erythema surrounding the wound and no sign of infection. Bandage applied. Continue to monitor for signs of infection. Qualifiers: Encounter type: initial encounter Qualified Code(s): S81.802A - Unspecified open wound, left lower leg, initial encounter (6) Leg wound, right Current Visit: Yes Status: Acute Assessment and plan: Small 0.3 mm wound to the right anterior lower leg. No erythema, does not appear infected on exam. Bandage applied. Likely secondary to patient picking and scratching at it. Qualifiers: Encounter type: initial encounter Qualified Code(s): S81.801A - Unspecified open wound, right lower leg, initial encounter (7) DVT prophylaxis Current Visit: No Status: Chronic Assessment and plan: Heparin subcutaneous - Time Spent With Patient Total time spent is greater than 50% in coordination of care (as documented) at patient's floor/unit and/or counseling patient:
[2017-11-10 05:55] LABS: Hematocrit 39.4 % (35.3-44.9); Mean Corpuscular Hemoglobin 30.9 pg (28.0-33.3); Mean Corpuscular Volume 93.6 fL (83.0-100.0); Mean Platelet Volume 9.2 fL (9.4-12.4); Platelet Count 352 K/mcL (140-400); Red Blood Count 4.21 M/mcL (3.82-4.97); Red Cell Distribution Width 15.5 % (11.5-14.5)
[2017-11-10 06:27] LABS: BUN/Creatinine Ratio 13 (6-26); Blood Urea Nitrogen 11 mg/dL (6-20); Calcium 9.1 mg/dL (8.6-10.3); Carbon Dioxide 28 mEq/L (23-29); Chloride 104 mEq/L (98-107); Glucose 169 mg/dL (70-105); Osmolality,Calculated 293 (280-300); Potassium 4.3 mEq/L (3.5-5.1); Sodium 140 mEq/L (136-145); eGFR For Non-African Americans > 60 (> 60)
[2017-11-10] MEDS ORDERED: predniSONE 20 MG TABLET PO SCH (09:00)
[2017-11-10] MEDS ORDERED: *HR* LORazepam 1 MG TABLET PO PRN (14:43)
[2017-11-10] MEDS: *HR* Heparin 5,000 UNIT/ML VIAL SQ SCH (17:39)
[2017-11-10] MEDS: Budesonide/Formoterol 160/4.5 1 PUFF INH IH SCH (19:44)
[2017-11-10] MEDS: Azithromycin 500 MG in D5% in Water 250 ML IVPB SCH (20:59)
[2017-11-11] MEDS: Ipratropium/Albuterol Neb 3 ML IH SCH ×5 (03:37→19:38)
[2017-11-11] MEDS: *HR* Heparin 5,000 UNIT/ML VIAL SQ SCH ×2 (04:54→16:56)
[2017-11-11] MEDS: Budesonide/Formoterol 160/4.5 1 PUFF INH IH SCH ×2 (07:38→19:38)
[2017-11-11] MEDS: Azithromycin 500 MG in D5% in Water 250 ML IVPB SCH (21:36)
--- NOTE | 2017-11-11 21:49 | Internal Med Progress Note ---
Hospitalist Progress Note - Encounter Date of Encounter: 11/11/17 Time of Encounter: 19:00 - Subjective Interval History: SUBJECTIVE: The patient feels better. Her breathing is her baseline, again. She is on BiPAP and 3 L/min nasal cannula oxygen. She did the same at home. It was yesterday afternoon when she developed redness of her face with anxiety. Likely secondary to high dose of IV Solu-Medrol; followed by high-dose of oral prednisone. It happened to her before on a couple occasions. We discontinued IV/oral steroids. Her face is normal color today. OBJECTIVE: Skin: Free of rash and discoloration. ENMT: Oral/pharyngeal mucosa is normal in appearance. Eyes: Sclera is white. There is no discharge from eyes. Respiratory: Normal breath sounds; no crackles or wheezes. CV: Heart is regular; no gallop or murmur. GI: Abdomen is soft and not tender. There is no palpable mass or visceromegaly. Neuro: There is no focal deficits. ASSESSMENT AND PLAN: COPD exacerbation/obstructive sleep apnea/acute on chronic respiratory failure with hypoxia. She seems to be baseline again. We will continue Zithromax and nebulizer treatments with DuoNeb. I gave her 1 dose of oral Benadryl. DISPOSITION: I would like to discharge her home tomorrow, if she remains stable. - Exam Vitals: Temp Pulse Resp BP Pulse Ox 98.1 F 90 18 119/74 97 11/11/17 20:08 11/11/17 20:08 11/11/17 20:08 11/11/17 20:08 11/11/17 20:08 Exam: xx - Assessment and Plan (1) COPD exacerbation Current Visit: Yes Status: Acute (2) JOSH (obstructive sleep apnea) Current Visit: Yes Status: Chronic (3) Acute and chronic respiratory failure with hypoxia Current Visit: Yes Status: Acute - Time Spent with Patient Total time spent is greater than 50% in coordination of care (as documented) at patient's floor/unit and/or counseling patient: 25 - 35 minutes Plan of Care Discussed with: patient Internal Medicine: Result - Labs CBC & Chem 7: 11/10/17 05:37 11/10/17 05:37 Consult Discharge Plan - Plan Referrals: Librado Andre MD [Primary Care Provider] -
[2017-11-12] MEDS: Ipratropium/Albuterol Neb 3 ML IH SCH ×4 (00:03→11:15)
[2017-11-12] MEDS: *HR* Heparin 5,000 UNIT/ML VIAL SQ SCH (05:46)
[2017-11-12 07:08] VITALS: BP 104/62
[2017-11-12] MEDS: Budesonide/Formoterol 160/4.5 1 PUFF INH IH SCH (07:42)
--- NOTE | 2017-11-12 11:18 | Discharge Summary ---
Date of Encounter: 11/12/17 Time of Encounter: 11:11 - Discharge Diagnosis (1) COPD exacerbation Priority: Primary Status: Acute (2) JOSH (obstructive sleep apnea) Priority: Secondary Status: Chronic (3) Acute and chronic respiratory failure with hypoxia Priority: Primary Status: Acute Hospital course: HOSPITAL COURSE: The patient was admitted with COPD exacerbation; failed outpatient treatments. We treated her with IV Zithromax and nebulizer treatments with DuoNeb. She got 125 mg of IV Solu-Medrol followed by 40 mg of oral prednisone. Then, she developed the severe redness of her face with a lot of anxiety. She told me that she had similar reaction to high-dose steroids on a couple occasions in the past. I gave her 50 mg of Benadryl. I stopped her steroids. I continued Symbicort. The patient returned to her baseline (in the sense of her breathing) . She has underlying obstructive sleep apnea. CONDITION AT DISCHARGE: She feels good. She is using supplemental oxygen at 3 L/min nasal cannulaher baseline. She does have mild cough but not wheezing. Skin: Free of rash and discoloration. Respiratory: Normal breath sounds with no crackles and wheezes bilaterally. CV: Heart is regular with no gallop or murmur. GI: Abdomen is flat and soft with no palpable mass or visceromegaly. Neuro exam: There is no focal deficits. Normal speech, swallowing and gait. SEE DISCHARGE ORDERS/MEDICATIONS.. She needs 4 more days of Zithromax. Discharge discussed with: patient - Time Spent with Patient Total time spent providing and/or coordinating discharge services: Greater than 30 minutes (40 minutes) - Discharge Medications Prescriptions: Azithromycin [Zithromax] 500 mg PO Q24H 4 Days #4 tablet Home Medications: Albuterol Sulfate [Proair Hfa] 2 puff IH Q4HR PRN 06/10/15 [History] Escitalopram [Lexapro] 10 mg PO DAILY 05/21/16 [History] Budesonide/Formoterol 160/4.5 [Symbicort 160/4.5] 2 puff IH BIDR 04/06/17 [ History] LORazepam [Ativan] 1 mg PO HS PRN 04/06/17 [History] Oxygen 3 l NS AD 04/06/17 [History] Roflumilast [Daliresp] 500 mcg PO DAILY 04/06/17 [History] Omeprazole [PriLOSEC] 20 mg PO BIDAC 07/27/17 [History] Montelukast [Singulair] 10 mg PO DAILY 09/22/17 [History] Tiotropium [Spiriva] 18 mcg IH DAILY 09/22/17 [History] Azithromycin [Zithromax] 500 mg PO Q24H 4 Days #4 tablet 11/12/17 [Rx] Ipratropium/Albuterol Neb [Duoneb] 3 ml IH Q4HR PRN #0 11/12/17 [Rx] Allergies/Adverse Reactions: 3 Allergy/AdvReac Type Severity Reaction Status Date / Time pantoprazole [From Protonix] Allergy See Verified 10/05/17 06:54 Comments Date of admission: 11/10/17 06:27 Primary care physician: Librado Andre MD Discharging clinician: James Zhou Anticipated date of discharge: 11/12/17 - Constitutional Vitals: Temp Pulse Resp BP Pulse Ox 97.7 F 81 18 104/62 99 11/12/17 07:08 11/12/17 07:08 11/12/17 07:08 11/12/17 07:08 11/12/17 07:08 General appearance: Present: cooperative, A&O X 3, pleasant, no acute distress, answers questions appropriately Exam: xx - Patient Status Disposition: Home, Self-Care Condition: Fair Functional capacity at discharge: independent ambulation Overall status at discharge: patient is back to baseline - Discharge Instructions Instructions: Azithromycin (By mouth), Acute Respiratory Distress Syndrome (DC) , Chronic Obstructive Pulmonary Disease (DC) Follow Up With: Librado Andre MD [Primary Care Provider] - 11/19/17 1:30 pm - Diet and Activity Activity: resume usual activities as tolerated Diet: regular diet - VTE Deep Vein Thrombosis/Pulmonary Embolism Present on Admission: No
[2017-11-12] MEDS ORDERED: Azithromycin 250 MG TABLET PO SCH (18:00)
--- NOTE | 2017-11-14 11:49 | Electrocardiograph Report ---
[place] [id number] Test Date: 2017-11-09 Pat Name: Mae Beckett Department: EXAM3 Room: 2NE29 Gender: F Dynamic Balancer: : 1960 Requested By: Velia Russ Order Number: [id number] Reading MD: Sravan Barajas Measurements Intervals [place] Rate: 86 P: 76 [place]: 107 QRS: 74 QRSD: 87 T: 72 QT: 363 QTc: 435 Interpretive Statements Sinus rhythm Short [place] interval Electronically Signed On 11-14-2017 11:47:46 EDT by Sravan Barajas
== END 2017-11-12 14:43 | disposition home or self-care (01) | DRG 190 ==
LOC: 2NENU 17:41 → EMEROOARM 17:41 → 2NENU 22:47 → SUATTDRO 11-10 06:27
PROVIDERS: ADMIT Pediatrics; ATTEND Internal Medicine

== ENCOUNTER 2018-04-06 10:54 | Observation (INO) ==
--- NOTE | 2018-04-06 11:04 | Emergency Department Note ---
Disposition Clinical Impression: COPD exacerbation, History of asthma, History of DVT (deep vein thrombosis), Dependence on supplemental oxygen Disposition: Admitted As Inpatient Referrals: Librado Andre MD [Primary Care Provider] - Forms: ED Satisfaction Letter General Adult HPI - General Chief complaint: ED Shortness of Breath/Dyspnea Stated complaint: KALIA Time Seen by Provider: 04/06/18 11:02 - History of Present Illness HPI Narrative: 58-year-old female with history of COPD and known 3 L oxygen requirement reports emergency department complaining of dyspnea and shortness of breath. The patient has had a cough but no sore throat or runny nose or ear pain. No high fevers. No coughing of blood or acute leg swelling or pain. There is no history of syncope. The patient denies any history of cancer. She had a remote DVT she is not anticoagulated. No history of coronary artery disease prior cardiac stent or CHF. The patient does not describe leg swelling. She has had no abdominal pain vomiting or diarrhea. No troubles moving the arms or legs independently no slurred speech or facial drooping. The patient states she has taken several breathing medications which have been unhelpful. She describes persistent wheezing and shortness of breath. - Related Data Home Medications Medication Instructions Recorded Confirmed Albuterol Sulfate [Proair Hfa] 2 puff IH Q4HR PRN 06/10/15 11/09/17 Escitalopram [Lexapro] 10 mg PO DAILY 05/21/16 11/09/17 Budesonide/Formoterol 160/4.5 2 puff IH BIDR 04/06/17 11/09/17 [Symbicort 160/4.5] LORazepam [Ativan] 1 mg PO HS PRN 04/06/17 11/09/17 Oxygen 3 l NS AD 04/06/17 11/09/17 Roflumilast [Daliresp] 500 mcg PO DAILY 04/06/17 11/09/17 Omeprazole [PriLOSEC] 20 mg PO BIDAC 07/27/17 11/09/17 Montelukast [Singulair] 10 mg PO DAILY 09/22/17 11/09/17 Tiotropium [Spiriva] 18 mcg IH DAILY 09/22/17 11/09/17 Previous Rx's Medication Instructions Recorded Azithromycin [Zithromax] 500 mg PO Q24H 4 Days #4 tablet 11/12/17 Ipratropium/Albuterol Neb [Duoneb] 3 ml IH Q4HR PRN #0 11/12/17 Allergies Allergy/AdvReac Type Severity Reaction Status Date / Time pantoprazole [From Protonix] Allergy See Verified 02/02/18 17:03 Comments All systems ED: reviewed and negative except as stated. Past Medical History - Past Medical History Medical history: Reports: arthritis, asthma, COPD, CVA, DVT, GERD, migraine Surgical history: Reports: appendectomy, hysterectomy, orthopedic, other Psychiatric history: Reports: anxiety PROFESSOR SCULPTURE history: Reports: no PROFESSOR SCULPTURE history - Social History Smoking Status: Former smoker Smokeless Tobacco Status: No Alcohol use: Reports: occasionally Drug use: Reports: none Physical Exam - General Limitations: no limitations General appearance: alert, in no apparent distress - Head Head exam: atraumatic, normocephalic, normal inspection - Eye Eye exam: Present: normal appearance, PERRL, EOMI - ENT ENT exam: normal exam, normal oropharynx, mucous membranes moist - Neck Neck exam: Present: normal inspection, full ROM, trachea midline - Chest Chest inspection: Present: symmetric chest wall rise. Absent: tenderness - Respiratory Respiratory exam: Present: wheezes, prolonged expiratory phase. Absent: respiratory distress - Cardiovascular Cardiovascular exam: Present: regular rate, normal rhythm, normal heart sounds - Abdominal Exam Abdominal exam: Present: soft, Non-Tender, normal bowel sounds. Absent: tenderness, distention, guarding, rebound, rigidity - Extremities Exam Extremities exam: Present: normal inspection, full ROM, normal capillary refill. Absent: tenderness, pedal edema, joint swelling, calf tenderness - Expanded Lower Extremity Exam Lower leg exam: Absent: Homans' sign Neurovascular/Tendon exam: Present: normal capillary refill. Absent: motor deficit, sensory deficit, tendon deficit, extremity cold to touch, pallor - Back Exam Back exam: Present: normal inspection, full ROM. Absent: tenderness, CVA tenderness (R), CVA tenderness (L), vertebral tenderness - Neurological Exam Neurological exam: Present: alert, oriented X3, CN II-XII intact. Absent: motor sensory deficit - Psychiatric Psychiatric exam: Present: normal affect, normal mood - Skin Skin exam: Present: warm, dry, intact, normal color Course Vital Signs Temperature 98.0 F 04/06/18 11:07 Pulse Rate 86 04/06/18 11:07 Respiratory Rate 22 04/06/18 11:07 Blood Pressure 113/78 04/06/18 11:07 O2 Sat by Pulse Oximetry 98 04/06/18 11:07 Temperature 98.0 F 04/06/18 11:07 Pulse Rate 87 04/06/18 16:32 Respiratory Rate 24 04/06/18 16:32 Blood Pressure 115/68 04/06/18 16:32 O2 Sat by Pulse Oximetry 93 04/06/18 16:32 Oxygen Delivery Oxygen Delivery Nasal Cannula Medical Decision Making - [facility] Narrative Medical decision making narrative: The patient has a chronic 3 L oxygen requirement. She comes emergency Department complaining of shortness of breath and persistent wheezing. She took 2 breathing treatments at home and had one via EMS. In the emergency department she was given 2 DuoNeb's and Solu-Medrol and maintained on 3 L. The patient had persistent wheezing after 5 nebulizers and appears to have failed outpatient therapy. On examination status post the fifth Neb, the patient displayed persistent tachypnea with a respiratory rate in the 30s on my examination, she had wheezing and her oxygen saturations were in the 90-91% range. Based on the patient's age, multiple medical comorbidities, apparent failed outpatient therapy, persistent wheezing status post 5 nebs, chronic oxygen dependency and a poor peak flow status post treatments, I thought it would be appropriate to admit the patient hospital. The patient is highly agreeable she does not feel well enough to go home. I discussed the case with the hospitalist on-call who has accepted the patient to their care. - Lab Data Lab results reviewed: Yes I reviewed the patient's lab results. Result diagrams: 04/06/18 11:26 04/06/18 11:26 Lab Results 04/06/18 04/06/18 04/06/18 Range/Units 11:26 11:26 11:26 WBC 8.7 (4.3-11.1) K/mcL RBC 4.41 (3.82-4.97) M/mcL Hgb 13.4 (11.5-15.4) g/dL Hct 39.9 (35.3-44.9) % MCV 90.5 (83.0-100.0) fL MCH 30.4 (28.0-33.3) pg MCHC 33.6 (31.6-35.5) g/dL RDW 14.3 (11.5-14.5) % Plt Count 394 (140-400) K/mcL MPV 9.9 (9.4-12.4) fL Immature Gran % 0.2 (0-4) % Seg Neutrophils % 60.4 % Lymphocytes % 27.6 % Monocytes % 5.9 % Eosinophils % 5.0 % Basophils % 0.9 % Neutrophils # 5.2 (1.6-8.9) K/mcL Lymphocytes # 2.4 (0.6-4.6) K/mcL Monocytes # 0.5 (0.0-1.3) K/mcL Eosinophils # 0.4 (0.0-0.6) K/mcL Basophils # 0.1 (0.0-0.2) K/mcL PT 10.9 (9.4-12.1) Seconds INR 1.0 APTT 32.3 (26.0-36.0) Seconds Sodium 138 (136-145) mEq/L Potassium 3.7 (3.5-5.1) mEq/L Chloride 104 (98-107) mEq/L Carbon Dioxide 26 (23-29) mEq/L BUN 9 (6-20) mg/dL Creatinine 0.81 (0.60-1.20) mg/dL Est GFR ( Amer) > 60 (> 60) Est GFR (Non-Af Amer) > 60 (> 60) BUN/Creatinine Ratio 11 (6-26) Glucose 108 H (70-105) mg/dL Calculated Osmolality 285 (280-300) Lactic Acid (0.5-2.2) mmol/L Calcium 9.9 (8.6-10.3) mg/dL Total Bilirubin 0.3 (0.3-1.0) mg/dL Direct Bilirubin 0.1 (0.0-0.2) mg/dL Indirect Bilirubin 0.2 (0.0-1.2) mg/dL AST 12 L (13-39) Units/L ALT 9 (7-52) Units/L Alkaline Phosphatase 81 (34-104) Units/L Troponin I < 0.03 (< 0.04) ng/mL B-Natriuretic Peptide (Less than 100) pg/mL Serum Total Protein 6.5 (6.4-8.9) g/dL Albumin 4.3 (3.5-5.7) g/dL Globulin 2.2 L (2.4-3.5) g/dL Albumin/Globulin Ratio 2.0 (1.1-2.2) Urine Color (Yellow) Urine Clarity (Clear) Urine pH (5.0-8.0) pH Units Ur Specific [place] (1.010-1.025) Urine Protein (Neg-Trace) mg/dL Urine Glucose (UA) (Normal) mg/dL Urine Ketones (Negative) mg/dL Urine Blood (Negative) Urine Nitrite (Negative) Urine Bilirubin (Negative) Urine Urobilinogen (Normal) mg/dL Ur Leukocyte Esterase (Negative) Ur Culture Indicated? (NO) 04/06/18 04/06/18 04/06/18 Range/Units 11:26 11:26 11:50 WBC (4.3-11.1) K/mcL RBC (3.82-4.97) M/mcL Hgb (11.5-15.4) g/dL Hct (35.3-44.9) % MCV (83.0-100.0) fL MCH (28.0-33.3) pg MCHC (31.6-35.5) g/dL RDW (11.5-14.5) % Plt Count (140-400) K/mcL MPV (9.4-12.4) fL Immature Gran % (0-4) % Seg Neutrophils % % Lymphocytes % % Monocytes % % Eosinophils % % Basophils % % Neutrophils # (1.6-8.9) K/mcL Lymphocytes # (0.6-4.6) K/mcL Monocytes # (0.0-1.3) K/mcL Eosinophils # (0.0-0.6) K/mcL Basophils # (0.0-0.2) K/mcL PT (9.4-12.1) Seconds INR APTT (26.0-36.0) Seconds Sodium (136-145) mEq/L Potassium (3.5-5.1) mEq/L Chloride (98-107) mEq/L Carbon Dioxide (23-29) mEq/L BUN (6-20) mg/dL Creatinine (0.60-1.20) mg/dL Est GFR ( Amer) (> 60) Est GFR (Non-Af Amer) (> 60) BUN/Creatinine Ratio (6-26) Glucose (70-105) mg/dL Calculated Osmolality (280-300) Lactic Acid 0.8 (0.5-2.2) mmol/L Calcium (8.6-10.3) mg/dL Total Bilirubin (0.3-1.0) mg/dL Direct Bilirubin (0.0-0.2) mg/dL Indirect Bilirubin (0.0-1.2) mg/dL AST (13-39) Units/L ALT (7-52) Units/L Alkaline Phosphatase (34-104) Units/L Troponin I (< 0.04) ng/mL B-Natriuretic Peptide 20 (Less than 100) pg/mL Serum Total Protein (6.4-8.9) g/dL Albumin (3.5-5.7) g/dL Globulin (2.4-3.5) g/dL Albumin/Globulin Ratio (1.1-2.2) Urine Color Yellow (Yellow) Urine Clarity Clear (Clear) Urine pH 7.0 (5.0-8.0) pH Units Ur Specific [place] 1.009 L (1.010-1.025) Urine Protein Negative (Neg-Trace) mg/dL Urine Glucose (UA) Normal (Normal) mg/dL Urine Ketones Negative (Negative) mg/dL Urine Blood Negative (Negative) Urine Nitrite Negative (Negative) Urine Bilirubin Negative (Negative) Urine Urobilinogen Normal (Normal) mg/dL Ur Leukocyte Esterase Negative (Negative) Ur Culture Indicated? NO (NO) - Radiology Data Radiology results reviewed: Yes I reviewed the patient's radiology results.
[2018-04-06] MEDS ORDERED: methylPREDNISolone 125 MG/2 ML VIAL IVP ONE (11:44)
[2018-04-06] MEDS ORDERED: Ipratropium/Albuterol Neb 3 ML IH ONE ×2 (11:44→13:18)
[2018-04-06 11:52] LABS: Basophils # 0.1 K/mcL (0.0-0.2); Basophils % 0.9 %; Eosinophils # 0.4 K/mcL (0.0-0.6); Hematocrit 39.9 % (35.3-44.9); Hemoglobin 13.4 g/dL (11.5-15.4); Immature Granulocytes % 0.2 % (0-4); Lymphocytes # 2.4 K/mcL (0.6-4.6); Lymphocytes % 27.6 %; Mean Corpuscular HGB Conc 33.6 g/dL (31.6-35.5); Mean Corpuscular Hemoglobin 30.4 pg (28.0-33.3); Mean Corpuscular Volume 90.5 fL (83.0-100.0); Mean Platelet Volume 9.9 fL (9.4-12.4); Monocytes # 0.5 K/mcL (0.0-1.3); Monocytes % 5.9 %; Neutrophils # 5.2 K/mcL (1.6-8.9); Platelet Count 394 K/mcL (140-400); Red Blood Count 4.41 M/mcL (3.82-4.97); Red Cell Distribution Width 14.3 % (11.5-14.5); Segmented Neutrophils % 60.4 %
[2018-04-06 12:00] LABS: Prothrombin Time 10.9 Seconds (9.4-12.1)
[2018-04-06 12:03] LABS: Activated Partial Thrombo Time 32.3 Seconds (26.0-36.0)
[2018-04-06 12:13] LABS: Alanine Aminotransferase 9 Units/L (7-52); Alkaline Phosphatase 81 Units/L (34-104); Aspartate Amino Transferase 12 Units/L (13-39); BUN/Creatinine Ratio 11 (6-26); Bilirubin,Direct 0.1 mg/dL (0.0-0.2); Bilirubin,Indirect 0.2 mg/dL (0.0-1.2); Bilirubin,Total 0.3 mg/dL (0.3-1.0); Blood Urea Nitrogen 9 mg/dL (6-20); Calcium 9.9 mg/dL (8.6-10.3); Carbon Dioxide 26 mEq/L (23-29); Chloride 104 mEq/L (98-107); Glucose 108 mg/dL (70-105); Osmolality,Calculated 285 (280-300); Potassium 3.7 mEq/L (3.5-5.1); Sodium 138 mEq/L (136-145); Total Protein 6.5 g/dL (6.4-8.9); Troponin I < 0.03 ng/mL (< 0.04); eGFR For Non-African Americans > 60 (> 60)
[2018-04-06 12:14] LABS: Albumin 4.3 g/dL (3.5-5.7); Globulin 2.2 g/dL (2.4-3.5)
[2018-04-06 12:34] LABS: Bilirubin,Urine Negative (Negative); Blood,Urine Negative (Negative); Clarity,Urine Clear (Clear); Color,Urine Yellow (Yellow); Glucose,Urine (UA) Normal (Normal); Ketones,Urine Negative (Negative); Leukocyte Esterase,Urine Negative (Negative); Nitrite,Urine Negative (Negative); Protein,Urine Negative (Neg-Trace); Specific Gravity,Urine 1.009 (1.010-1.025); Urobilinogen,Urine Normal (Normal)
--- NOTE | 2018-04-06 17:01 | Internal Med History&Physical ---
<Nader Garcia - Last Filed: 04/06/18 16:58> Date of Encounter: 04/06/18 Time of Encounter: 16:58 Internal Medicine - H&P: HPI Chief complaint: sob Admitted From: Emergency Dept Plans for Post Hospital Care: Home History of present illness: Ms. Beckett is a 58 year old female hx of COPD on 3L at home presets with cc of sob for the last few days that has been refractory to the use of home nebulizer, and inhaler treatments. She has a history of frequent admissions for COPD exacerbations in 2018. She reports increased O2 needs, increased sputum production and cough. She has exertional dyspnea. She denies sick contacts, recent travel, fever, chills, chest pain, syncope. Reports light headedness. She denies current tobacco use. Past Med Surg Social Fam HX - Past Medical History Medical history: arthritis, asthma, COPD, CVA, DVT, GERD, migraine Additional medical history: Neuro stimulator for neck and arm pain. Psychiatric history: anxiety - Past Surgical History Surgical History: appendectomy, hysterectomy, orthopedic, other Additional surgical history: Neurostimulator in back. - Social History Smoking Status: Former smoker Smokeless Tobacco Status: No Alcohol use: occasionally Drug use: none - Family History Father Living Status: Hx Family Cardiac Disorders: Yes (Father-pacemaker) Hx Family Respiratory Disorders: Yes (Mother, Brothers, Sisters) Hx Family Cancer: Yes Hx Family GI Disorders: No Hx Family Endocrine Disorder: Yes (sister-thyroid) Hx Family Neuromuscular Disorders: No Hx Family Neurologic Disorders: Yes (Father-stroke) Hx Family HEENT Disorders: Yes (Mother-meniere's disease) Hx Family Autoimmune Disorders: No Mother Living Status: Hx Family Cardiac Disorders: Yes Hx Family Respiratory Disorders: Yes Hx Family Cancer: No Hx Family GI Disorders: Yes (colostomy form colon tear colonoscopy) Hx Family Endocrine Disorder: No Hx Family Neuromuscular Disorders: No Hx Family Neurologic Disorders: No Hx Family HEENT Disorders: No Hx Family Autoimmune Disorders: No Internal Medicine - H&P: Meds RX: Albuterol Sulfate [Proair Hfa] 2 puff IH Q4HR PRN 06/10/15 [History] RX: Escitalopram [Lexapro] 10 mg PO DAILY 05/21/16 [History] RX: Budesonide/Formoterol 160/4.5 [Symbicort 160/4.5] 2 puff IH BIDR 04/06/17 [History] RX: LORazepam [Ativan] 1 mg PO HS PRN 04/06/17 [History] RX: Oxygen 3 l NS AD 04/06/17 [History] RX: Roflumilast [Daliresp] 500 mcg PO DAILY 04/06/17 [History] RX: Omeprazole [PriLOSEC] 20 mg PO BIDAC 07/27/17 [History] RX: Montelukast [Singulair] 10 mg PO DAILY 09/22/17 [History] RX: Tiotropium [Spiriva] 18 mcg IH DAILY 09/22/17 [History] RX: Azithromycin [Zithromax] 500 mg PO Q24H 4 Days #4 tablet 11/12/17 [Rx] RX: Ipratropium/Albuterol Neb [Duoneb] 3 ml IH Q4HR PRN #0 11/12/17 [Rx] Allergy/AdvReac Type Severity Reaction Status Date / Time pantoprazole [From Protonix] Allergy See Verified 02/02/18 17:03 Comments All Systems PM: A 10-system review of systems was performed and is negative for pertinent findings except as documented above in the HPI. Review of systems: Constitutional: Denies fever, chills HEENT: Denies headache, trauma, blurry vision, eye discharge, ear pain, ear discharge neck pain, sore throat, rhinorrhea Heart: Denies chest pain palpitations, Denies LE edema Lungs: as per hpi Abdomen: Denies abdominal pain, vomiting, diarrhea. MSK: Denies back pain, falls, joint pain Kidney: Denies dysuria, hematuria Skin: Denies open wound and rash Neuro: Denies numbness and tingling Psych: denies anxiety, depression - Constitutional Vitals: Temp Pulse Resp BP Pulse Ox 98.0 F 87 24 115/68 93 04/06/18 11:07 04/06/18 16:32 04/06/18 16:32 04/06/18 16:32 04/06/18 16:32 Exam: General: pleasant, mild distress HEENT: Head atraumatic, normocephalic, EOMI, PERRL, absent ear discharge or trauma, Moist Mucous Membranes, uvula midline Neck: nontender to palpation, absent lymphadenopathy, Cardiovascualr: regular rate and regular rhythm with no murmur, absent gallops or rubs, absent pedal edema, radial pulses 2 out of 4 Lungs:diffuse expiratory ronchi and wheezing Abdomen: Soft nontender, nondistended positive bowel sounds, Skin: warm and dry, absent rash MSK: absent clubbing, cyanosis, joints without swelling Neuro: Cranial nerves II through XII intact, UE and LE sensation intact UE and LE strength 5/5, alert oriented 3, Psych: good insight and judgment Internal Med - H&P Results - Labs CBC & Chem 7: 04/06/18 11:26 04/06/18 11:26 Labs: Short CBC 04/06/18 Range/Units 11:26 WBC 8.7 (4.3-11.1) K/mcL Hgb 13.4 (11.5-15.4) g/dL Hct 39.9 (35.3-44.9) % Plt Count 394 (140-400) K/mcL Neutrophils # 5.2 (1.6-8.9) K/mcL BMP 04/06/18 11:26 Sodium 138 Potassium 3.7 Chloride 104 Carbon Dioxide 26 BUN 9 Creatinine 0.81 Glucose 108 H Calcium 9.9 Cardiac Enzymes 04/06/18 Range/Units 11:26 Troponin I < 0.03 (< 0.04) ng/mL Liver Function 04/06/18 Range/Units 11:26 Total Bilirubin 0.3 (0.3-1.0) mg/dL Direct Bilirubin 0.1 (0.0-0.2) mg/dL AST 12 L (13-39) Units/L ALT 9 (7-52) Units/L Alkaline Phosphatase 81 (34-104) Units/L Albumin 4.3 (3.5-5.7) g/dL Urine 04/06/18 Range/Units 11:50 Urine Color Yellow (Yellow) Urine Clarity Clear (Clear) Urine pH 7.0 (5.0-8.0) pH Units Ur Specific [place] 1.009 L (1.010-1.025) Urine Protein Negative (Neg-Trace) mg/dL Urine Glucose (UA) Normal (Normal) mg/dL - Impressions ITS Impressions Chest X-Ray 04/06/18 11:03 IMPRESSION: No acute process. D/ / Hemal Lock MD / Hemal Lock MD Interpreting Provider: Hemal Lock MD - Assessment and plan (1) Acute and chronic respiratory failure with hypoxia Current Visit: Yes Status: Acute Assessment and plan: 2nd copd exacerbation. CXR WNL currently on home 3L O2 but experiencing severe exertion dyspena with any movement cardiac tele, continuos pulse ox, duonebs symbicort, daliresp (2) COPD exacerbation Current Visit: Yes Status: Acute Assessment and plan: worsening cough, sputum production and increased O2 requirement will start on levaquin, IV steroids, and duonebs jorge procalcitonin blood cultures ordered in ED patient only meets one SIRS Criteria for tachypena (3) Hx of anxiety disorder Current Visit: Yes Status: Acute Assessment and plan: continue home ativan and lexapro (4) DVT prophylaxis Current Visit: No Status: Chronic Assessment and plan: heparin sq (5) GERD (gastroesophageal reflux disease) Current Visit: Yes Status: Chronic Assessment and plan: controlled. continue omeprazole Qualifiers: Esophagitis presence: without esophagitis Qualified Code(s): K21.9 - Gastro-esophageal reflux disease without esophagitis - Time Spent With Patient Total time spent is greater than 50% in coordination of care (as documented) at patient's floor/unit and/or counseling patient: <GingerYolis Autumnsergei - Last Filed: 04/06/18 22:16> Date of Encounter: 04/06/18 Internal Medicine - H&P: HPI History of present illness: Ms. Beckett is a 58 year old female Past Med Surg Social Fam HX - Family History Father Living Status: Age at : 73 Cause of : lung cancer Hx Family Cardiac Disorders: Yes (Father-pacemaker) Hx Family Respiratory Disorders: Yes (Mother, Brothers, Sisters) Hx Family Cancer: Yes Hx Family GI Disorders: No Hx Family Endocrine Disorder: Yes (sister-thyroid) Hx Family Neuromuscular Disorders: No Hx Family Neurologic Disorders: Yes (Father-stroke) Hx Family HEENT Disorders: Yes (Mother-meniere's disease) Hx Family Autoimmune Disorders: No Mother Living Status: Age at : 86 Hx Family Cardiac Disorders: Yes Hx Family Respiratory Disorders: Yes Hx Family Cancer: No Hx Family GI Disorders: Yes (colostomy form colon tear colonoscopy) Hx Family Endocrine Disorder: No Hx Family Neuromuscular Disorders: No Hx Family Neurologic Disorders: No Hx Family HEENT Disorders: No Hx Family Autoimmune Disorders: No Sister Age: 62 Living Status: Still Living Hx Family Respiratory Disorders: Yes (Copd) All Systems PM: A 10-system review of systems was performed and is negative for pertinent findings except as documented above in the HPI. - Constitutional Vitals: Temp Pulse Resp BP Pulse Ox 97.3 F L 81 16 117/66 94 04/06/18 20:54 04/06/18 20:54 04/06/18 20:54 04/06/18 20:54 04/06/18 20:54 Internal Med - H&P Results - Labs CBC & Chem 7: 04/06/18 11:26 04/06/18 11:26 Labs: Short CBC 04/06/18 Range/Units 11:26 WBC 8.7 (4.3-11.1) K/mcL Hgb 13.4 (11.5-15.4) g/dL Hct 39.9 (35.3-44.9) % Plt Count 394 (140-400) K/mcL Neutrophils # 5.2 (1.6-8.9) K/mcL BMP 04/06/18 11:26 Sodium 138 Potassium 3.7 Chloride 104 Carbon Dioxide 26 BUN 9 Creatinine 0.81 Glucose 108 H Calcium 9.9 Cardiac Enzymes 04/06/18 Range/Units 11:26 Troponin I < 0.03 (< 0.04) ng/mL Liver Function 04/06/18 Range/Units 11:26 Total Bilirubin 0.3 (0.3-1.0) mg/dL Direct Bilirubin 0.1 (0.0-0.2) mg/dL AST 12 L (13-39) Units/L ALT 9 (7-52) Units/L Alkaline Phosphatase 81 (34-104) Units/L Albumin 4.3 (3.5-5.7) g/dL Urine 04/06/18 Range/Units 11:50 Urine Color Yellow (Yellow) Urine Clarity Clear (Clear) Urine pH 7.0 (5.0-8.0) pH Units Ur Specific [place] 1.009 L (1.010-1.025) Urine Protein Negative (Neg-Trace) mg/dL Urine Glucose (UA) Normal (Normal) mg/dL - Impressions ITS Impressions Chest X-Ray 04/06/18 11:03 IMPRESSION: No acute process. D/ / Hemal Lock MD / Hemal Lokc MD Interpreting Provider: Hemal Lock MD - Time Spent With Patient Total time spent is greater than 50% in coordination of care (as documented) at patient's floor/unit and/or counseling patient: - Attending Attestation I examined this patient and my medical decision-making was reviewed with the Resident Physician. I agree with the documented findings, disposition and tr eatment plan as described except to the extent set forth below. family history non-contributory
[2018-04-06] MEDS: MethylPREDNISolone 40 MG/ML VIAL IVP SCH ×2 (19:30→23:25)
[2018-04-06] MEDS: Ipratropium/Albuterol Neb 3 ML IH SCH ×2 (20:18→22:45)
[2018-04-06] MEDS: Levofloxacin 500 MG/100 ML 500 MG/100 ML BAG IVPB SCH (20:19)
[2018-04-06] MEDS: *HR* Heparin 5,000 UNIT/ML VIAL SQ SCH (21:31)
[2018-04-06] MEDS: *HR* LORazepam 1 MG TABLET PO PRN (22:31)
[2018-04-06] MEDS: Budesonide/Formoterol 160/4.5 1 PUFF INH IH SCH (22:45)
--- NOTE | 2018-04-06 23:08 | Electrocardiograph Report ---
[employer] Test Date: 2018-04-06 Pat Name: Mae Beckett Department: [id number] Room: 3B34 Gender: F Lane Attendant: : 1960 Requested By: Andresa Amin Order Number: [id number] Reading MD: Mart Schultz Measurements Intervals [place] Rate: 86 P: 74 [place]: 127 QRS: 66 QRSD: 99 T: 57 QT: 374 QTc: 448 Interpretive Statements Sinus rhythm Electronically Signed On 04-06-2018 23:07:04 EST by Mart Schultz
[2018-04-07] MEDS: Ipratropium/Albuterol Neb 3 ML IH SCH ×4 (03:58→22:29)
[2018-04-07 05:33] LABS: Basophils % 0.1 %; Hematocrit 40.8 % (35.3-44.9); Hemoglobin 13.4 g/dL (11.5-15.4); Immature Granulocytes % 0.6 % (0-4); Lymphocytes # 0.7 K/mcL (0.6-4.6); Lymphocytes % 10.2 %; Mean Corpuscular HGB Conc 32.8 g/dL (31.6-35.5); Mean Corpuscular Hemoglobin 29.6 pg (28.0-33.3); Mean Corpuscular Volume 90.3 fL (83.0-100.0); Mean Platelet Volume 9.9 fL (9.4-12.4); Monocytes # 0.1 K/mcL (0.0-1.3); Monocytes % 0.7 %; Neutrophils # 6.4 K/mcL (1.6-8.9); Platelet Count 398 K/mcL (140-400); Red Blood Count 4.52 M/mcL (3.82-4.97); Red Cell Distribution Width 14.1 % (11.5-14.5); Segmented Neutrophils % 88.4 %
[2018-04-07] MEDS: *HR* Heparin 5,000 UNIT/ML VIAL SQ SCH ×3 (05:57→22:06)
[2018-04-07] MEDS: MethylPREDNISolone 40 MG/ML VIAL IVP SCH ×4 (05:57→23:26)
[2018-04-07] MEDS: DALIRESP 500MCG PO SCH (07:40)
[2018-04-07] MEDS: Levofloxacin 500 MG/100 ML 500 MG/100 ML BAG IVPB SCH (07:49)
--- NOTE | 2018-04-07 08:24 | Event Note ---
Date of Encounter: 04/07/18 Time of Encounter: 08:22 Patient was seen and examined. I agree with the progress note as written by the resident physician. Patient if feeling better but not yet back to baseline. On about 2-3 L NC O2 which is her baseline. Admitted for COPD exacerbation. GEN: NAD CVS: RRR. S1, S2, No m/r/g RESP: diffuse posterior and anterior wheezes ABD: Soft, NT, ND, +BS EXT: No edema. 2+ DP. No rashes NEURO: Nonfocal Continue IV steroids as his possibly weaning tomorrow and if she is feeling b tommie she can be discharged on a taper Continue scheduled nebs On IV Levaquin O2 support Continue home meds DVT prophylaxis
--- NOTE | 2018-04-07 08:37 | Internal Med Progress Note ---
Hospitalist Progress Note - Encounter Date of Encounter: 04/07/18 Time of Encounter: 09:00 - Subjective Interval History: Patient had no acute events overnight. She does state she has right upper chest wall pain from coughing. She reports she walked to the bathroom this morning and had severe shortness of breath thereafter. Overall, patient's shortness of breath at rest has improved. - Exam Vitals: Temp Pulse Resp BP Pulse Ox 97.5 F L 80 16 104/62 94 04/07/18 06:51 04/07/18 06:51 04/07/18 06:51 04/07/18 06:51 04/07/18 06:51 Exam: General: pleasant, mild distress Cardiovascualr: regular rate and regular rhythm with no murmur, absent gallops or rubs, absent pedal edema, radial pulses 2 out of 4 Lungs: wheezing b/l, improved air movement on exam compared to yesterday Abdomen: Soft nontender, nondistended positive bowel sounds, Skin: warm and dry, absent rash MSK: absent clubbing, cyanosis, joints without swelling Neuro: Alert oriented 3 Psych: good insight and judgment - Assessment and Plan (1) Acute and chronic respiratory failure with hypoxia Current Visit: Yes Status: Acute Assessment and Plan: 2nd copd exacerbation. CXR WNL currently on home 3L O2 but experiencing severe exertion dyspena exertion cardiac tele, continuos pulse ox, duonebs symbicort, daliresp Plan is to monitor patient for additional 24 hours for improvement in shortness of breath with exertion. (2) COPD exacerbation Current Visit: Yes Status: Acute Assessment and Plan: worsening cough, sputum production and increased O2 requirement Continue on levaquin day 2, IV steroids, and duonebs [facility] procalcitonin pending blood cultures pending (3) Hx of anxiety disorder Current Visit: Yes Status: Acute Assessment and Plan: Continue when necessary Ativan. (4) DVT prophylaxis Current Visit: Yes Status: Chronic Assessment and Plan: Continue heparin subcutaneous (5) GERD (gastroesophageal reflux disease) Current Visit: Yes Status: Chronic Assessment and Plan: Continue omeprazole - Time Spent with Patient Total time spent is greater than 50% in coordination of care (as documented) at patient's floor/unit and/or counseling patient: Internal Medicine: Result - Labs CBC & Chem 7: 04/07/18 04:35 04/06/18 11:26 Labs: Short CBC 04/06/18 04/07/18 Range/Units 11:26 04:35 WBC 8.7 7.3 (4.3-11.1) K/mcL Hgb 13.4 13.4 (11.5-15.4) g/dL Hct 39.9 40.8 (35.3-44.9) % Plt Count 394 398 (140-400) K/mcL Neutrophils # 5.2 6.4 (1.6-8.9) K/mcL BMP 04/06/18 11:26 Sodium 138 Potassium 3.7 Chloride 104 Carbon Dioxide 26 BUN 9 Creatinine 0.81 Glucose 108 H Calcium 9.9 Cardiac Enzymes 04/06/18 Range/Units 11:26 Troponin I < 0.03 (< 0.04) ng/mL Liver Function 04/06/18 Range/Units 11:26 Total Bilirubin 0.3 (0.3-1.0) mg/dL Direct Bilirubin 0.1 (0.0-0.2) mg/dL AST 12 L (13-39) Units/L ALT 9 (7-52) Units/L Alkaline Phosphatase 81 (34-104) Units/L Albumin 4.3 (3.5-5.7) g/dL Urine 04/06/18 Range/Units 11:50 Urine Color Yellow (Yellow) Urine Clarity Clear (Clear) Urine pH 7.0 (5.0-8.0) pH Units Ur Specific [place] 1.009 L (1.010-1.025) Urine Protein Negative (Neg-Trace) mg/dL Urine Glucose (UA) Normal (Normal) mg/dL - ABG Interpretation ABG results: PT/INR, D-dimer PT 10.9 Seconds (9.4-12.1) 04/06/18 11:26 - Impressions Impressions Chest X-Ray 04/06/18 11:03 IMPRESSION: No acute process. D/ / Hemal Lock MD / Hemal Lock MD Interpreting Provider: Hemal Lock MD Consult Discharge Plan - Plan Referrals: Librado Andre MD [Primary Care Provider] - (5) GERD (gastroesophageal reflux disease) Qualifiers: Esophagitis presence: without esophagitis Qualified Code(s): K21.9 - Gastro- esophageal reflux disease without esophagitis
[2018-04-07] MEDS: Budesonide/Formoterol 160/4.5 1 PUFF INH IH SCH ×2 (11:13→22:29)
[2018-04-07] MEDS ORDERED: Acetaminophen 325 MG TABLET PO PRN (14:17)
[2018-04-07] MEDS ORDERED: Albuterol 2.5 MG/3 ML NEBULIZER IH PRN (15:01)
[2018-04-07] MEDS: *HR* LORazepam 1 MG TABLET PO PRN (22:06)
[2018-04-08] MEDS: Ipratropium/Albuterol Neb 3 ML IH SCH ×4 (04:23→21:54)
[2018-04-08] MEDS: MethylPREDNISolone 40 MG/ML VIAL IVP SCH ×4 (05:37→23:36)
[2018-04-08] MEDS: *HR* Heparin 5,000 UNIT/ML VIAL SQ SCH ×3 (05:37→22:23)
--- NOTE | 2018-04-08 07:52 | Event Note ---
Date of Encounter: 04/08/18 Time of Encounter: 07:51 Patient was seen and examined. I agree with the progress note as written by the resident physician. Continues to improve but not yet back to baseline. Remains on about 2-3 L NC O2 which is her baseline. Admitted for COPD exacerbation. GEN: NAD CVS: RRR. S1, S2, No m/r/g RESP: diffuse posterior and anterior wheezes but less than yesterday ABD: Soft, NT, ND, +BS EXT: No edema. 2+ DP. No rashes NEURO: Nonfocal Continue IV steroids but wean to q8 hours. Continue scheduled nebs On IV Levaquin O2 support Continue home meds DVT prophylaxis d/c tomorrow on PO prednisone taper
[2018-04-08] MEDS: Levofloxacin 500 MG/100 ML 500 MG/100 ML BAG IVPB SCH (08:58)
[2018-04-08] MEDS: DALIRESP 500MCG PO SCH (08:59)
--- NOTE | 2018-04-08 09:13 | Internal Med Progress Note ---
Hospitalist Progress Note - Encounter Date of Encounter: 04/08/18 Time of Encounter: 11:21 - Subjective Interval History: Patient lying comfortably in bed upon examination. States that she is feeling much better today. Breathing has improved and she has noticed much less wheezing. Still admits to productive cough with clear sputum. States that she is not quite back to her baseline as she becomes quickly fatigued when getting up and moving around. Admits to some lightheadedness after continuous coughing and on going from sitting to standing too quickly. Denies fever or chills. - Exam Vitals: Temp Pulse Resp BP Pulse Ox 97.7 F 73 16 105/63 98 04/08/18 06:41 04/08/18 06:41 04/08/18 06:41 04/08/18 06:41 04/08/18 06:41 Exam: General: pleasant, no acute distress Head: Normocephalic atraumatic Eyes: Conjunctiva clear without discharge, EOMI Mouth: Mucosa moist Cardiovascualr: RRR with no murmur, absent pedal edema Lungs: CTAB significantly improved s/p breathing treatment Abdomen: Soft nontender, nondistended positive bowel sounds, Skin: warm and dry, absent rash MSK: absent clubbing, cyanosis, joints without swelling Neuro: Alert oriented 3 Psych: good insight and judgment - Assessment and Plan (1) Acute and chronic respiratory failure with hypoxia Current Visit: Yes Status: Resolved Assessment and Plan: Resolved Likely secondary to COPD exacerbation CXR negative Influenza A/B negative [place] on 3L NC at 94% , 3L chronically at home (2) COPD exacerbation Current Visit: Yes Status: Acute Assessment and Plan: Improving Likely secondary to URI Procalcitonin pending Influenza A/B antigen negative Blood cx NGTD Continue nebs, steroids, inhalers Continue Levaquin (3) Hx of anxiety disorder Current Visit: Yes Status: Acute Assessment and Plan: Chronic, stable Continue PRN Ativan Continue Lexapro (4) GERD (gastroesophageal reflux disease) Current Visit: Yes Status: Chronic Assessment and Plan: Chronic, stable Continue Omeperazole DVT Prophylaxis: SQ Heparin - Time Spent with Patient Total time spent is greater than 50% in coordination of care (as documented) at patient's floor/unit and/or counseling patient: Internal Medicine: Result - Labs CBC & Chem 7: 04/07/18 04:35 04/06/18 11:26 - ABG Interpretation ABG results: PT/INR, D-dimer PT 10.9 Seconds (9.4-12.1) 04/06/18 11:26 Consult Discharge Plan - Plan Referrals: Librado Andre MD [Primary Care Provider] - 04/16/18 11:00 am (4) GERD (gastroesophageal reflux disease) Qualifiers: Esophagitis presence: without esophagitis Qualified Code(s): K21.9 - Gastro- esophageal reflux disease without esophagitis
[2018-04-08] MEDS: Budesonide/Formoterol 160/4.5 1 PUFF INH IH SCH ×2 (10:51→21:54)
[2018-04-08] MEDS: *HR* LORazepam 1 MG TABLET PO PRN (23:36)
[2018-04-09] MEDS: Ipratropium/Albuterol Neb 3 ML IH SCH ×2 (03:46→10:14)
[2018-04-09] MEDS: *HR* Heparin 5,000 UNIT/ML VIAL SQ SCH (05:57)
[2018-04-09] MEDS: MethylPREDNISolone 40 MG/ML VIAL IVP SCH (05:57)
[2018-04-09 06:58] VITALS: BP 116/69
[2018-04-09] MEDS: Levofloxacin 500 MG/100 ML 500 MG/100 ML BAG IVPB SCH (08:47)
[2018-04-09] MEDS: DALIRESP 500MCG PO SCH (08:47)
[2018-04-09] MEDS ORDERED: Multivit/Ca/Min/Fe/FA 1 TAB TABLET PO SCH (09:00)
[2018-04-09] MEDS: Budesonide/Formoterol 160/4.5 1 PUFF INH IH SCH (10:14)
--- NOTE | 2018-04-09 10:19 | Discharge Summary ---
<Lacy Chacon - Last Filed: 04/09/18 10:11> - NOTES TO OUTPATIENT PROVIDER Notes to Outpatient Provider: Admitted for COPD exacerbation. Follow up with PCP within 1 week Orders not resulted at time of discharge: Pending orders 04/06/18 11:26 Culture,Blood [BC] Stat Procalcitonin Routine Date of Encounter: 04/09/18 Time of Encounter: 09:01 - Discharge Diagnosis (1) Acute and chronic respiratory failure with hypoxia Priority: Secondary Status: Resolved (2) COPD exacerbation Priority: Primary Status: Acute (3) Hx of anxiety disorder Priority: Secondary Status: Acute (4) GERD (gastroesophageal reflux disease) Priority: Secondary Status: Chronic Qualifiers: Esophagitis presence: without esophagitis Qualified Code(s): K21.9 - Gastro-esophageal reflux disease without esophagitis Hospital course: Ms. Beckett is a 58 year old female with a history of COPD on 3 L supplemental oxygen chronically, who presented to the ER with shortness of breath for several days that was not responding to nebulizer or inhaler treatment. She was admitted for COPD exacerbation. On presentation patient was afebrile, heart rate 86, respirations 22, blood pressure 113/78, 98% on 3 L supplemental oxygen. Patient received 3 days IV Levaquin and IV Solu-Medrol. Patient will receive 2 additional days of oral Levaquin and a steroid taper. His respiratory status has significantly improved and she is stable for discharge home. Return to the ER if respiratory status worsens, no improvement, or new onset of additional symptoms. Discharge discussed with: patient - Time Spent with Patient Total time spent providing and/or coordinating discharge services: Greater than 30 minutes - Discharge Medications Prescriptions: New Levofloxacin [Levaquin] 500 mg PO QDPC #2 tablet predniSONE [Prednisone] See Taper PO QDPC 4 Days #10 tab Continue RX: Escitalopram [Lexapro] 10 mg PO DAILY RX: Roflumilast [Daliresp] 500 mcg PO DAILY RX: Oxygen 3 l NS AD RX: Budesonide/Formoterol 160/4.5 [Symbicort 160/4.5] 2 puff IH BID RX: LORazepam [Ativan] 1 mg PO HS PRN PRN Reason: Sleep RX: Omeprazole [PriLOSEC] 20 mg PO BID RX: Ipratropium/Albuterol Neb [Duoneb] 3 ml IH Q4HR PRN #0 PRN Reason: Wheezing RX: Albuterol Sulfate [Ventolin Hfa] 2 puff IH Q4H PRN PRN Reason: Shortness Of Breath RX: Multivit-Min/Iron/Folic/Lutein [Centrum Silver Women Tablet] 1 each PO DAILY Home Medications: RX: Escitalopram [Lexapro] 10 mg PO DAILY 05/21/16 [History] RX: Budesonide/Formoterol 160/4.5 [Symbicort 160/4.5] 2 puff IH BID 04/06/17 [History] RX: LORazepam [Ativan] 1 mg PO HS PRN 04/06/17 [History] RX: Oxygen 3 l NS AD 04/06/17 [History] RX: Roflumilast [Daliresp] 500 mcg PO DAILY 04/06/17 [History] RX: Omeprazole [PriLOSEC] 20 mg PO BID 07/27/17 [History] RX: Ipratropium/Albuterol Neb [Duoneb] 3 ml IH Q4HR PRN #0 11/12/17 [Rx] RX: Albuterol Sulfate [Ventolin Hfa] 2 puff IH Q4H PRN 04/08/18 [History] RX: Multivit-Min/Iron/Folic/Lutein [Centrum Silver Women Tablet] 1 each PO DAILY 04/08/18 [History] Levofloxacin [Levaquin] 500 mg PO QDPC #2 tablet 04/09/18 [Rx] predniSONE [Prednisone] See Taper PO QDPC 4 Days #10 tab 04/09/18 [Rx] Allergies/Adverse Reactions: Allergy/AdvReac Type Severity Reaction Status Date / Time pantoprazole [From Protonix] Allergy HEADACHE/NA Verified 04/08/18 16:00 USEA Date of admission: 04/06/18 19:25 Primary care physician: Librado Andre MD Consults: 04/06/18 16:53 Consult to Nurse Navigator [CONS] Routine Comment: COPD 04/07/18 08:31 Consult to Nurse Navigator [CONS] Routine Comment: Discharging clinician: Lacy Chacon Anticipated date of discharge: 04/09/18 - Constitutional Vitals: Temp Pulse Resp BP Pulse Ox 98.3 F 79 18 116/69 96 04/09/18 06:57 04/09/18 06:57 04/09/18 06:57 04/09/18 06:57 04/09/18 06:57 Exam: General: pleasant, no acute distress Head: Normocephalic atraumatic Eyes: Conjunctiva clear without discharge, EOMI Mouth: Mucosa moist Cardiovascualr: RRR with no murmur, absent pedal edema Lungs: Slight wheezing throughout, however significantly improved from initial examination. On baseline O2 of 3L. Abdomen: Soft nontender, nondistended positive bowel sounds, Skin: warm and dry, absent rash MSK: absent clubbing, cyanosis, joints without swelling Neuro: Alert oriented 3 Psych: good insight and judgment - Patient Status Disposition: Home, Self-Care Condition: Good Overall status at discharge: patient is progressing back to baseline - Discharge Instructions Instructions: Prednisone (By mouth), Levofloxacin (By mouth) Follow Up With: Librado Andre MD [Primary Care Provider] - 04/16/18 11:00 am - Diet and Activity Activity: resume usual activities as tolerated Diet: regular diet <Deyanira Luevano - Last Filed: 04/09/18 20:45> Orders not resulted at time of discharge: Pending orders 04/06/18 11:26 Culture,Blood [BC] Stat Date of Encounter: 04/09/18 Hospital course: Ms. Beckett is a 58 year old female - Time Spent with Patient Total time spent providing and/or coordinating discharge services: Date of admission: 04/06/18 19:25 Primary care physician: Librado Andre MD Consults: 04/06/18 16:53 Consult to Nurse Navigator [CONS] Routine Comment: COPD 04/07/18 08:31 Consult to Nurse Navigator [CONS] Routine Comment: - Constitutional Vitals: Temp Pulse Resp BP Pulse Ox 98.3 F 79 20 116/69 96 04/09/18 06:57 04/09/18 06:57 04/09/18 10:14 04/09/18 06:57 04/09/18 10:14 - Attending Attestation I examined this patient and my medical decision-making was reviewed with the Resident Physician. I agree with the documented discharge as described except to the extent set forth below. Treated for COPD exacerbation. d/c on prednisone taper. Was back to baseline O2 needs GEN: NAD CVS: RRR. S1, S2, No m/r/g RESP: diminshed but no wheezes ABD: Soft, NT, ND, +BS EXT: No edema. 2+ DP. No rashes NEURO: Nonfocal
== END 2018-04-09 11:12 | disposition home or self-care (01) ==
LOC: 3BNU 10:54 → EMEROOARM 10:54 → SUATTDRO 19:25 → 3BNU 20:00
PROVIDERS: ADMIT Internal Medicine; ATTEND Internal Medicine

== ENCOUNTER 2018-05-14 06:41 | Inpatient (IN) ==
[2018-05-14] MEDS ORDERED: Ipratropium/Albuterol Neb 3 ML IH ONE (06:47)
[2018-05-14] MEDS ORDERED: methylPREDNISolone 125 MG/2 ML VIAL IVP ONE (06:47)
--- NOTE | 2018-05-14 06:49 | Emergency Department Note ---
START Narrative - START START: Patient seen just prior to shift change. Patient was brought in by EMS. EMS initial call secondary to dyspnea. Patient woke up from sleep short of breath. Patient does have a history of COPD and is on 3 L nasal cannula at home. Patient initial reported pulse ox was in the mid 50s. Patient gave herself to breathing treatments. On squad arrival, the patient's pulse ox was 97%. Patient continues to have coarse moderate diffuse wheezing throughout. Patient has been sick for the last 2 weeks. Initially treated with amoxicillin and did not improve. Patient then treated with Levaquin. Patient completed her 5 day course of Levaquin. Patient has not yet completed her steroid taper. Patient continues to have thick white mucus production.
--- NOTE | 2018-05-14 07:04 | Emergency Department Note ---
Disposition Clinical Impression: Acute exacerbation of chronic obstructive airways disease, Elevated troponin Disposition: Admitted As Inpatient Condition: Undetermined Time of Disposition: 08:23 SOB HPI - General Chief Complaint: ED Shortness of Breath/Dyspnea Stated Complaint: Jeramie Time Seen by Provider: 05/14/18 06:44 Source: patient, EMS Mode of arrival: EMS Limitations: no limitations Nursing Notes Reviewed: Yes Vital Signs Reviewed: Yes - History of Present Illness 58-year-old female on COPD on 3 L nasal cannula [id number] arrives to the emergency department with shortness of breath. The patient states this progressively worsened over the past couple months. Patient states that she is been treated multiple times outpatient with no success. The patient is been on antibiotics and steroids. No complaint of your leg swelling from her baseline. The patient line denies any associated chest pain but is chest wall pain. Patient states that she is been wheezing and had difficulty breathing. The patient states her pulse ox is 70% on her baseline 3 L at home. The patient states he took 2 DuoNeb's prior to arrival. Patient arrives to the emergency department in moderate respiratory distress. Patient denies any other acute complaints at this time. - Related Data Home Medications Medication Instructions Recorded Confirmed Escitalopram [Lexapro] 10 mg PO DAILY 05/21/16 04/08/18 Budesonide/Formoterol 160/4.5 2 puff IH BID 04/06/17 04/08/18 [Symbicort 160/4.5] Oxygen 3 l NS AD 04/06/17 04/06/18 Omeprazole [PriLOSEC] 20 mg PO BID 07/27/17 04/08/18 Albuterol Sulfate [Ventolin Hfa] 2 puff IH Q4H PRN 04/08/18 04/08/18 Prozac 04/24/18 Tiotropium [Spiriva] 18 mcg IH 04/24/18 Previous Rx's Medication Instructions Recorded Ipratropium/Albuterol Neb [Duoneb] 3 ml IH Q4HR PRN #0 11/12/17 Allergies Allergy/AdvReac Type Severity Reaction Status Date / Time pantoprazole [From Protonix] Allergy HEADACHE/NA Verified 04/24/18 18:18 USEA All systems ED: reviewed and negative except as stated. Constitutional: Denies: fever, chills, weakness ENT ED: Denies: dysphagia Cardiovascular: Denies: chest pain Respiratory: Reports: cough, dyspnea, wheezes. Denies: hemoptysis, sputum production Gastrointestinal: Denies: abdominal pain, nausea, vomiting Genitourinary: Denies: urgency, dysuria Musculoskeletal: Denies: back pain Integumentary: Denies: rash Neurological: Denies: headache Past Medical History - Past Medical History Attestation: Yes The following information was validated with the patient. 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 history - Social History Smoking Status: Former smoker Smokeless Tobacco Status: No Alcohol use: Reports: occasionally Drug use: Reports: none Physical Exam - General Limitations: no limitations General appearance: alert, in distress (moderate respiratory) - Head Head exam: atraumatic, normocephalic, normal inspection - Eye Eye exam: Present: normal appearance, PERRL, EOMI - ENT ENT exam: normal exam, normal oropharynx, mucous membranes moist - Neck Neck exam: Present: normal inspection, full ROM, trachea midline - Chest Chest inspection: Present: normal inspection, symmetric chest wall rise - Respiratory Respiratory exam: Present: normal lung sounds bilaterally - Cardiovascular Cardiovascular exam: Present: regular rate - Abdominal Exam Abdominal exam: Present: soft, Non-Tender. Absent: tenderness, distention, guarding, rebound, rigidity - Extremities Exam Extremities exam: Present: normal inspection, full ROM. Absent: tenderness, pedal edema - Neurological Exam Neurological exam: Present: alert, oriented X3 - Skin Skin exam: Present: warm, dry, intact, normal color Course Vital Signs Temperature 98.3 F 05/14/18 06:50 Pulse Rate 91 05/14/18 06:50 Respiratory Rate 27 05/14/18 06:50 Blood Pressure 108/70 05/14/18 06:50 O2 Sat by Pulse Oximetry 94 05/14/18 06:50 Temperature 98.3 F 05/14/18 06:50 Pulse Rate 91 05/14/18 06:50 Respiratory Rate 20 05/14/18 07:17 Blood Pressure 108/70 05/14/18 06:50 O2 Sat by Pulse Oximetry 100 05/14/18 07:17 Oxygen Delivery Oxygen Delivery Nasal Cannula Shortness of Breath/Dyspnea - MDM Narrative Medical decision making narrative: Patient's workup in the emergency department demonstrates findings consistent with a COPD exacerbation. The patient was noted to be hypoxic upon arrival to the emergency department and evaluation from EMS the 70s. Patient was tachypneic and was having some accessory muscle use. In addition the patient was found to have an elevated troponin of 0.09 was administered 325 aspirin here in the ED. The patient will be admitted to the hospital at this time with concern for fail outpatient treatment for COPD as well as elevated troponin. Patient made aware and agree to plan. No further questions or concerns noted. Accepted by Dr. Arenas. - Lab Data Lab results reviewed: Yes I reviewed the patient's lab results. Result diagrams: 05/14/18 07:25 05/14/18 07:25 Lab Results 05/14/18 05/14/18 05/14/18 Range/Units 07:25 07:25 07:25 WBC 14.2 H (4.3-11.1) K/mcL RBC 4.11 (3.82-4.97) M/mcL Hgb 12.4 (11.5-15.4) g/dL Hct 38.7 (35.3-44.9) % MCV 94.2 (83.0-100.0) fL MCH 30.2 (28.0-33.3) pg MCHC 32.0 (31.6-35.5) g/dL RDW 15.5 H (11.5-14.5) % Plt Count 351 (140-400) K/mcL MPV 9.1 L (9.4-12.4) fL Immature Gran % 2.6 (0-4) % Seg Neutrophils % 61.3 % Lymphocytes % 25.4 % Monocytes % 7.4 % Eosinophils % 2.8 % Basophils % 0.5 % Neutrophils # 8.7 (1.6-8.9) K/mcL Lymphocytes # 3.6 (0.6-4.6) K/mcL Monocytes # 1.1 (0.0-1.3) K/mcL Eosinophils # 0.4 (0.0-0.6) K/mcL Basophils # 0.1 (0.0-0.2) K/mcL Sodium 142 (136-145) mEq/L Potassium 3.7 (3.5-5.1) mEq/L Chloride 104 (98-107) mEq/L Carbon Dioxide 34 H (23-29) mEq/L BUN 10 (6-20) mg/dL Creatinine 0.80 (0.60-1.20) mg/dL Est GFR ( Amer) > 60 (> 60) Est GFR (Non-Af Amer) > 60 (> 60) BUN/Creatinine Ratio 13 (6-26) Glucose 101 (70-105) mg/dL Calculated Osmolality 293 (280-300) Lactic Acid 1.2 (0.5-2.2) mmol/L Calcium 9.0 (8.6-10.3) mg/dL Troponin I 0.09 H* (< 0.04) ng/mL B-Natriuretic Peptide (Less than 100) pg/mL 05/14/18 Range/Units 07:25 WBC (4.3-11.1) K/mcL RBC (3.82-4.97) M/mcL Hgb (11.5-15.4) g/dL Hct (35.3-44.9) % MCV (83.0-100.0) fL MCH (28.0-33.3) pg MCHC (31.6-35.5) g/dL RDW (11.5-14.5) % Plt Count (140-400) K/mcL MPV (9.4-12.4) fL Immature Gran % (0-4) % Seg Neutrophils % % Lymphocytes % % Monocytes % % Eosinophils % % Basophils % % Neutrophils # (1.6-8.9) K/mcL Lymphocytes # (0.6-4.6) K/mcL Monocytes # (0.0-1.3) K/mcL Eosinophils # (0.0-0.6) K/mcL Basophils # (0.0-0.2) K/mcL Sodium (136-145) mEq/L Potassium (3.5-5.1) mEq/L Chloride (98-107) mEq/L Carbon Dioxide (23-29) mEq/L BUN (6-20) mg/dL Creatinine (0.60-1.20) mg/dL Est GFR ( Amer) (> 60) Est GFR (Non-Af Amer) (> 60) BUN/Creatinine Ratio (6-26) Glucose (70-105) mg/dL Calculated Osmolality (280-300) Lactic Acid (0.5-2.2) mmol/L Calcium (8.6-10.3) mg/dL Troponin I (< 0.04) ng/mL B-Natriuretic Peptide 44 (Less than 100) pg/mL - Radiology Data Radiology results reviewed: Yes I reviewed the patient's radiology results. Chest X-Ray 05/14/18 06:47 IMPRESSION: No acute cardiopulmonary abnormality. D/ / Anel Iglesias MD / Anel Iglesias MD Interpreting Provider: Anel Iglesias MD - EKG Data EKG attestation: Yes I reviewed and interpreted this EKG. EKG results narrative: Heart rate 84 beats for minute. Normal sinus rhythm. No ST elevation or ST depression noted. No acute changes noted. Attestation Statement - Attestation Attestation: I, Newton Russ, examined this patient and my medical decision-making was reviewed with the BUSINESS SERVICES CLERK/PA/Advanced Practice Nurse/Resident Physician. I agree with the documented findings, disposition and treatment plan as described except to the extent set forth below. 58-year-old female presents emergency Department with concerns of difficulty in breathing. Patient states symptoms have been worsening over the past 2 weeks, she has taken azithromycin as outpatient for obesity. Patient states it feels similar to her previous COPD exacerbations. Patient states that this occurs every year. This does not feel different than her other previous COPD exacerbations. She denies fever, chills, nausea, vomiting, diarrhea, palpitations, syncopal event. Patient felt improved with DuoNeb's. Chest x-ray did not show evidence of acute infiltrate. She felt comfortable with plan for admission to hospital for further care and evaluation.
[2018-05-14 07:34] LABS: Basophils # 0.1 K/mcL (0.0-0.2); Basophils % 0.5 %; Eosinophils # 0.4 K/mcL (0.0-0.6); Eosinophils % 2.8 %; Hematocrit 38.7 % (35.3-44.9); Hemoglobin 12.4 g/dL (11.5-15.4); Immature Granulocytes % 2.6 % (0-4); Lymphocytes # 3.6 K/mcL (0.6-4.6); Lymphocytes % 25.4 %; Mean Corpuscular Hemoglobin 30.2 pg (28.0-33.3); Mean Corpuscular Volume 94.2 fL (83.0-100.0); Mean Platelet Volume 9.1 fL (9.4-12.4); Monocytes # 1.1 K/mcL (0.0-1.3); Monocytes % 7.4 %; Neutrophils # 8.7 K/mcL (1.6-8.9); Platelet Count 351 K/mcL (140-400); Red Blood Count 4.11 M/mcL (3.82-4.97); Red Cell Distribution Width 15.5 % (11.5-14.5); Segmented Neutrophils % 61.3 %
[2018-05-14 07:55] LABS: BUN/Creatinine Ratio 13 (6-26); Blood Urea Nitrogen 10 mg/dL (6-20); Carbon Dioxide 34 mEq/L (23-29); Chloride 104 mEq/L (98-107); Glucose 101 mg/dL (70-105); Osmolality,Calculated 293 (280-300); Potassium 3.7 mEq/L (3.5-5.1); Sodium 142 mEq/L (136-145); eGFR For Non-African Americans > 60 (> 60)
[2018-05-14 08:11] LABS: Troponin I 0.09 ng/mL (< 0.04)
[2018-05-14] MEDS ORDERED: Aspirin 325 MG TABLET PO ONE (08:12)
[2018-05-14] MEDS ORDERED: cefTRIAXone 1,000 MG in 0.9 % Sodium Chloride Mini Bag 100 ML IVPB ONE (08:28)
[2018-05-14] MEDS ORDERED: Naloxone 0.4 MG/ML INJ IVP PRN (10:06)
--- NOTE | 2018-05-14 10:43 | Internal Med History&Physical ---
Date of Encounter: 05/14/18 Time of Encounter: 09:30 Internal Medicine - H&P: HPI Chief complaint: DIFFICULTY BREATHING Admitted From: Home Plans for Post Hospital Care: Home History of present illness: The patient is a 58-year-old woman with long-standing history of oxygen dependent/BiPAP dependent COPD. She has had more difficulty breathing with dyspnea, coughing and wheezing for the last 2 weeks. Initially started on amoxicillin and prednisone taper; Levaquin substituted for amoxicillin about a week ago. She was able to get some sleep last night. She was very short of breath today morning. If not better after getting cut to nebulizer treatments. She had pulse ox at low 70s at 3 L/min nasal cannula oxygen, when EMS arrived. Her baseline oxygen consumption is 3 L/min. She has not had any fever or chills recently. She does have some hurting in the anterior chestworse with coughing and deep breathing. She has normal urination. PAST MEDICAL HX: She has had long-standing COPD; on supplemental oxygen at 3 L/min nasal cannula and BiPAP. She has chronic respiratory failure with hypoxia and hypercapnia. She is treated for GERD and depression with anxiety. PAST FAMILY HX: See below PAST SOCIAL HX: She is a former smoker. She drinks alcohol very occasionally. There is no history of illicit drug use. REVIEW OF SYSTEMS: All 14 organ systems were reviewed by me with the patient. Positive and pertinent negative findings are listed above. The rest of organ systems is negative. PHYSICAL EXAM: Skin: Free of rash and discoloration. Eyes: Sclera is white. There is no discharge from eyes. ENMT: Oral/pharyngeal mucosa is normal in appearance. There is no discharge from nose or ears. Respiratory: Normal breath sounds to. I can hear a few bilateral rhonchi and wheezes. CV: Heart is regular with no gallop or murmur. GI: Abdomen is flat and soft with no palpable mass or visceromegaly. : There is no tenderness in patient's flanks bilaterally. Neuro exam: He has good strength in upper and lower extremities. He has normal eye movements. ADDITIONAL DATA: Chest x-ray shows no acute cardiopulmonary abnormality. CBC shows hemoglobin of 12.4 with WBC of 14.2 thousand and normal platelet count. Her electrolytes are showing increased bicarb of 34. Otherwise, the normal. Creatinine is 0.80. Lactic acid is 1.2. troponin is 0.09. BNP is 44. A/P: COPD exacerbation with acute on chronic respiratory failure with hypoxia and hypercapnia. I will keep her on IV Rocephin/IV Zithromax to get better with IV Solu-Medrol and nebulizer treatments with DuoNeb. GERD. To continue omeprazole. Depression with anxiety. I will keep her Lexapro on hold, as she needs Zithromax. Past Med Surg Social Fam HX - Past Medical History Medical history: COPD Additional medical history: Neuro stimulator for neck and arm pain. Psychiatric history: anxiety - Past Surgical History Surgical History: appendectomy, hysterectomy, orthopedic, other Additional surgical history: Neurostimulator in back, bilat eye surgery, cut part of left rib out - Social History Smoking Status: Former smoker Smokeless Tobacco Status: No Alcohol use: occasionally Drug use: none - Family History Mother Living Status: Hx Family Cardiac Disorders: Yes Hx Family Respiratory Disorders: Yes Hx Family Cancer: No Hx Family GI Disorders: Yes (colostomy form colon tear colonoscopy) Hx Family Endocrine Disorder: No Hx Family Neuromuscular Disorders: No Hx Family Neurologic Disorders: No Hx Family HEENT Disorders: No Hx Family Autoimmune Disorders: No Sister Living Status: Still Living Hx Family Respiratory Disorders: Yes (Copd) Father Living Status: Hx Family Cardiac Disorders: Yes (Father-pacemaker) Hx Family Respiratory Disorders: Yes (Mother, Brothers, Sisters) Hx Family Cancer: Yes Hx Family GI Disorders: No Hx Family Endocrine Disorder: Yes (sister-thyroid) Hx Family Neuromuscular Disorders: No Hx Family Neurologic Disorders: Yes (Father-stroke) Hx Family HEENT Disorders: Yes (Mother-meniere's disease) Hx Family Autoimmune Disorders: No Internal Medicine - H&P: Meds Escitalopram [Lexapro] 10 mg PO DAILY 05/21/16 [History] Budesonide/Formoterol 160/4.5 [Symbicort 160/4.5] 2 puff IH BID 04/06/17 [History] Oxygen 3 l NS AD 04/06/17 [History] Omeprazole [PriLOSEC] 20 mg PO BID 07/27/17 [History] Ipratropium/Albuterol Neb [Duoneb] 3 ml IH Q4HR PRN #0 11/12/17 [Rx] Albuterol Sulfate [Ventolin Hfa] 2 puff IH Q4H PRN 04/08/18 [History] Prozac 04/24/18 [History] Tiotropium [Spiriva] 18 mcg IH 04/24/18 [History] Allergy/AdvReac Type Severity Reaction Status Date / Time pantoprazole [From Protonix] Allergy HEADACHE/NA Verified 04/24/18 18:18 USEA - Constitutional Vitals: Temp Pulse Resp BP Pulse Ox 98.2 F 97 20 106/69 97 05/14/18 10:05 05/14/18 10:05 05/14/18 10:05 05/14/18 10:05 05/14/18 10:05 General appearance: Present: A&O X 3, no acute distress, answers questions appropriately Exam: xx Internal Med - H&P Results - Labs CBC & Chem 7: 05/14/18 07:25 05/14/18 07:25 Labs: Short CBC 05/14/18 Range/Units 07:25 WBC 14.2 H (4.3-11.1) K/mcL Hgb 12.4 (11.5-15.4) g/dL Hct 38.7 (35.3-44.9) % Plt Count 351 (140-400) K/mcL Neutrophils # 8.7 (1.6-8.9) K/mcL BMP 05/14/18 07:25 Sodium 142 Potassium 3.7 Chloride 104 Carbon Dioxide 34 H BUN 10 Creatinine 0.80 Glucose 101 Calcium 9.0 Cardiac Enzymes 05/14/18 Range/Units 07:25 Troponin I 0.09 H* (< 0.04) ng/mL - Impressions ITS Impressions Chest X-Ray 05/14/18 06:47 IMPRESSION: No acute cardiopulmonary abnormality. D/ / Anel Iglesias MD / Anel Iglesias MD Interpreting Provider: Anel Iglesias MD - Assessment and Plan (1) COPD exacerbation Current Visit: No Status: Acute (2) Acute on chronic respiratory failure with hypoxia and hypercapnia Current Visit: Yes Status: Acute (3) GERD (gastroesophageal reflux disease) Current Visit: Yes Status: Chronic Qualifiers: Esophagitis presence: esophagitis presence not specified Qualified Code(s): K21.9 - Gastro-esophageal reflux disease without esophagitis (4) Depression with anxiety Current Visit: Yes Status: Chronic - Time Spent With Patient Total time spent is greater than 50% in coordination of care (as documented) at patient's floor/unit and/or counseling patient: 25 - 35 minutes
[2018-05-14] MEDS: Azithromycin 500 MG in D5% in Water 250 ML IVPB SCH (11:14)
[2018-05-14] MEDS: Ipratropium/Albuterol Neb 3 ML IH SCH ×3 (11:32→20:30)
[2018-05-14] MEDS: methylPREDNISolone 125 MG/2 ML VIAL IVP SCH ×2 (14:07→21:16)
[2018-05-14] MEDS: Budesonide/Formoterol 160/4.5 1 PUFF INH IH SCH (20:29)
[2018-05-15] MEDS: Ipratropium/Albuterol Neb 3 ML IH SCH ×6 (00:11→19:48)
[2018-05-15] MEDS: methylPREDNISolone 125 MG/2 ML VIAL IVP SCH ×3 (06:18→21:03)
[2018-05-15] MEDS: Budesonide/Formoterol 160/4.5 1 PUFF INH IH SCH ×2 (07:33→19:48)
[2018-05-15] MEDS: cefTRIAXone 1,000 MG in 0.9 % Sodium Chloride Mini Bag 100 ML IVPB SCH (08:56)
--- NOTE | 2018-05-15 09:03 | Internal Med Progress Note ---
Hospitalist Progress Note - Encounter Date of Encounter: 05/15/18 Time of Encounter: 11:00 - Subjective Interval History: Patient is a 58-year-old female with past medical history significant for O2 dependent COPD with recurrent admissions for COPD exacerbations who presents for the same with symptoms of shortness of breath. - Exam Vitals: Temp Pulse Resp BP Pulse Ox 97.8 F 94 18 114/63 97 05/15/18 06:32 05/15/18 06:32 05/15/18 07:33 05/15/18 06:32 05/15/18 07:33 Exam: Gen.: Nonacute distress, alert and oriented 3 ENT: Mucosal membranes moist Respiratory: Lungs are clear to auscultation bilaterally without any wheezing rhonchi or rales Cardiovascular: Normal S1 and S2 regular rate rhythm no murmurs rubs or gallops Abdomen: Soft, nontender and nondistended with positive bowel sounds Extremities: No lower extremity edema Skin: Normal color - Assessment and Plan (1) COPD exacerbation Current Visit: No Status: Acute Assessment and Plan: Patient with past medical history significant for O2 dependent COPD with recurrent admissions for COPD exacerbations who presents for the same with symptoms of shortness of breath. Patient with leukocytosis but chest x-ray negative for any acute findings and she is afebrile. Respiratory panel pending Will continue IV azithromycin and ceftriaxone started on admission until results respiratory panel now. Continue scheduled DuoNeb nebs and Solu-Medrol. (2) Acute on chronic respiratory failure with hypoxia and hypercapnia Current Visit: Yes Status: Acute Assessment and Plan: Resolved as patient now on baseline O2 requirements at 3 L of continuous nasal cannula (3) GERD (gastroesophageal reflux disease) Current Visit: Yes Status: Chronic Assessment and Plan: Continue home dose of PPI (4) Depression with anxiety Current Visit: Yes Status: Chronic Assessment and Plan: Continue home dose of SSRI DVT Prophylaxis: Subcutaneous heparin - Time Spent with Patient Total time spent is greater than 50% in coordination of care (as documented) at patient's floor/unit and/or counseling patient: Internal Medicine: Result - Labs CBC & Chem 7: 05/15/18 09:18 05/15/18 09:18 Labs: Cardiac Enzymes 05/15/18 05/15/18 Range/Units 01:12 07:47 Troponin I 0.08 H* 0.06 H* (< 0.04) ng/mL Consult Discharge Plan - Plan Referrals: Librado Andre MD [Primary Care Provider] - (Appointment has been requested, our offices will call with an appointment time and date.) (3) GERD (gastroesophageal reflux disease) Qualifiers: Esophagitis presence: esophagitis presence not specified Qualified Code(s): K21.9 - Gastro-esophageal reflux disease without esophagitis
[2018-05-15 09:35] LABS: Mean Platelet Volume 9.5 fL (9.4-12.4)
[2018-05-15 09:37] LABS: Hematocrit 38.5 % (35.3-44.9); Hemoglobin 12.8 g/dL (11.5-15.4); Mean Corpuscular HGB Conc 33.2 g/dL (31.6-35.5); Mean Corpuscular Hemoglobin 30.1 pg (28.0-33.3); Mean Corpuscular Volume 90.6 fL (83.0-100.0); Platelet Count 358 K/mcL (140-400); Red Blood Count 4.25 M/mcL (3.82-4.97); Red Cell Distribution Width 15.4 % (11.5-14.5)
[2018-05-15] MEDS: Azithromycin 500 MG in D5% in Water 250 ML IVPB SCH (09:38)
[2018-05-15 09:53] LABS: BUN/Creatinine Ratio 17 (6-26); Blood Urea Nitrogen 13 mg/dL (6-20); Calcium 9.4 mg/dL (8.6-10.3); Carbon Dioxide 27 mEq/L (23-29); Chloride 102 mEq/L (98-107); Glucose 160 mg/dL (70-105); Osmolality,Calculated 290 (280-300); Potassium 3.9 mEq/L (3.5-5.1); Sodium 138 mEq/L (136-145); eGFR For Non-African Americans > 60 (> 60)
[2018-05-15 10:07] LABS: Lymphocytes # 2.2 K/mcL (0.6-4.6); Monocytes # 0.6 K/mcL (0.0-1.3); Platelet Estimate Normal (Normal)
[2018-05-15 12:52] LABS: Adenovirus Not Detected (Not Detect); Bordetella Pertussis Not Detected (Not Detect); Chlamydophila pneumoniae Not Detected (Not Detect); Coronavirus 229E Not Detected (Not Detect); Coronavirus HKU1 Not Detected (Not Detect); Coronavirus NL63 Not Detected (Not Detect); Coronavirus OC43 Not Detected (Not Detect); Human Metapneumovirus Not Detected (Not Detect); Human Rhinovirus/Enterovirus Not Detected (Not Detect); Influenza A Subtype 2009 H1 Not Detected (Not Detect); Influenza A Untypeable Not Detected (Not Detect); Influenza B Not Detected (Not Detect); Mycoplasma pneumoniae Not Detected (Not Detect); Parainfluenza Virus 1 Not Detected (Not Detect); Parainfluenza Virus 2 Not Detected (Not Detect); Parainfluenza Virus 3 Not Detected (Not Detect); Parainfluenza Virus 4 Not Detected (Not Detect); Respiratory Syncytial Virus Not Detected (Not Detect)
[2018-05-15] MEDS: *HR* Heparin 5,000 UNIT/ML VIAL SQ SCH ×2 (13:21→21:03)
--- NOTE | 2018-05-15 14:17 | Electrocardiograph Report ---
[place] [id number] Test Date: 2018-05-14 Pat Name: Mae Beckett Department: EXAM3 Room: 3B34 Gender: F Titrator: : 1960 Requested By: Burt Wong Order Number: [id number] Reading MD: Jory Balderrama Measurements Intervals [place] Rate: 84 P: 82 AL: 116 QRS: 79 QRSD: 90 T: 81 QT: 366 QTc: 433 Interpretive Statements Sinus rhythm Borderline short AL interval Electronically Signed On 05-15-2018 14:16:00 EDT by Jory Balderrama
[2018-05-16] MEDS: Ipratropium/Albuterol Neb 3 ML IH SCH ×6 (00:02→20:21)
[2018-05-16] MEDS ORDERED: MOM Conc 10 ML UD.LIQ PO ONE (03:18)
[2018-05-16] MEDS: methylPREDNISolone 125 MG/2 ML VIAL IVP SCH ×3 (05:32→20:43)
[2018-05-16] MEDS: *HR* Heparin 5,000 UNIT/ML VIAL SQ SCH ×3 (05:32→20:44)
[2018-05-16] MEDS: Budesonide/Formoterol 160/4.5 1 PUFF INH IH SCH ×2 (07:29→20:21)
[2018-05-16] MEDS: cefTRIAXone 1,000 MG in 0.9 % Sodium Chloride Mini Bag 100 ML IVPB SCH (08:15)
[2018-05-16] MEDS: Azithromycin 500 MG in D5% in Water 250 ML IVPB SCH (08:59)
--- NOTE | 2018-05-16 09:50 | Internal Med Progress Note ---
Hospitalist Progress Note - Encounter Date of Encounter: 05/16/18 Time of Encounter: 11:00 - Subjective Interval History: Patient is a 58-year-old female with past medical history significant for O2 dependent COPD with recurrent admissions for COPD exacerbations who presents for the same with symptoms of shortness of breath. - Exam Vitals: Temp Pulse Resp BP Pulse Ox 97.6 F 87 18 117/63 98 05/16/18 07:42 05/16/18 07:42 05/16/18 07:42 05/16/18 07:42 05/16/18 08:27 Exam: Gen.: Nonacute distress, alert and oriented 3 ENT: Mucosal membranes moist Respiratory: Lungs are clear to auscultation bilaterally without any wheezing rhonchi or rales Cardiovascular: Normal S1 and S2 regular rate rhythm no murmurs rubs or gallops Abdomen: Soft, nontender and nondistended with positive bowel sounds Extremities: No lower extremity edema Skin: Normal color - Assessment and Plan (1) COPD exacerbation Current Visit: No Status: Acute Assessment and Plan: Patient with past medical history significant for O2 dependent COPD with recurrent admissions for COPD exacerbations who presents for the same with symptoms of shortness of breath. Patient with leukocytosis but chest x-ray negative for any acute findings and she is afebrile. Respiratory panel negative Due to patient's worsening leukocytosis, although on IV steroids, will continue day 2 of IV azithromycin and ceftriaxone. Continue scheduled DuoNeb nebs and Solu-Medrol. (2) Acute on chronic respiratory failure with hypoxia and hypercapnia Current Visit: Yes Status: Acute Assessment and Plan: Resolved as patient now on baseline O2 requirements at 3 L of continuous nasal cannula (3) GERD (gastroesophageal reflux disease) Current Visit: Yes Status: Chronic Assessment and Plan: Continue home dose of PPI (4) Depression with anxiety Current Visit: Yes Status: Chronic Assessment and Plan: Continue home dose of SSRI DVT Prophylaxis: Subcutaneous heparin - Time Spent with Patient Total time spent is greater than 50% in coordination of care (as documented) at patient's floor/unit and/or counseling patient: Internal Medicine: Result - Labs CBC & Chem 7: 05/16/18 10:14 05/16/18 10:14 Labs: Short CBC 05/15/18 Range/Units 09:18 WBC 27.8 H D (4.3-11.1) K/mcL Hgb 12.8 (11.5-15.4) g/dL Hct 38.5 (35.3-44.9) % Plt Count 358 (140-400) K/mcL Neutrophils # 25.0 H (1.6-8.9) K/mcL BMP 05/15/18 09:18 Sodium 138 Potassium 3.9 Chloride 102 Carbon Dioxide 27 BUN 13 Creatinine 0.78 Glucose 160 H Calcium 9.4 Consult Discharge Plan - Plan Referrals: Librado Andre MD [Primary Care Provider] - (Appointment has been requested, our offices will call with an appointment time and date.) (3) GERD (gastroesophageal reflux disease) Qualifiers: Esophagitis presence: esophagitis presence not specified Qualified Code(s): K21.9 - Gastro-esophageal reflux disease without esophagitis
[2018-05-16 10:39] LABS: Basophils # 0.1 K/mcL (0.0-0.2); Basophils % 0.2 %; Eosinophils % 0.1 %; Hematocrit 38.5 % (35.3-44.9); Hemoglobin 12.6 g/dL (11.5-15.4); Immature Granulocytes % 3.5 % (0-4); Lymphocytes # 0.5 K/mcL (0.6-4.6); Lymphocytes % 1.5 %; Mean Corpuscular HGB Conc 32.7 g/dL (31.6-35.5); Mean Corpuscular Hemoglobin 30.4 pg (28.0-33.3); Mean Corpuscular Volume 92.8 fL (83.0-100.0); Mean Platelet Volume 9.7 fL (9.4-12.4); Monocytes # 0.3 K/mcL (0.0-1.3); Platelet Count 370 K/mcL (140-400); Red Blood Count 4.15 M/mcL (3.82-4.97); Segmented Neutrophils % 93.7 %
[2018-05-16 10:40] LABS: Neutrophils # 28.5 K/mcL (1.6-8.9)
[2018-05-16] MEDS ORDERED: Isovue-370 500 ML BOTTLE IVP ONE (10:52)
[2018-05-16 11:00] LABS: BUN/Creatinine Ratio 23 (6-26); Blood Urea Nitrogen 20 mg/dL (6-20); Calcium 9.4 mg/dL (8.6-10.3); Carbon Dioxide 26 mEq/L (23-29); Chloride 100 mEq/L (98-107); Glucose 294 mg/dL (70-105); Osmolality,Calculated 297 (280-300); Potassium 3.9 mEq/L (3.5-5.1); Sodium 137 mEq/L (136-145); eGFR For Non-African Americans > 60 (> 60)
[2018-05-16] MEDS: 0.9 % Sodium Chloride 1,000 ML IVC SCH ×2 (15:41→23:52)
[2018-05-17] MEDS: Ipratropium/Albuterol Neb 3 ML IH SCH ×7 (00:12→23:43)
[2018-05-17] MEDS: methylPREDNISolone 125 MG/2 ML VIAL IVP SCH ×3 (05:56→22:34)
[2018-05-17] MEDS: *HR* Heparin 5,000 UNIT/ML VIAL SQ SCH ×3 (05:57→21:11)
[2018-05-17] MEDS: Budesonide/Formoterol 160/4.5 1 PUFF INH IH SCH ×2 (07:26→19:40)
[2018-05-17] MEDS: 0.9 % Sodium Chloride 1,000 ML IVC SCH ×2 (08:42→16:26)
[2018-05-17] MEDS: cefTRIAXone 1,000 MG in 0.9 % Sodium Chloride Mini Bag 100 ML IVPB SCH (08:48)
--- NOTE | 2018-05-17 10:13 | Internal Med Progress Note ---
Hospitalist Progress Note - Encounter Date of Encounter: 05/17/18 Time of Encounter: 11:00 - Subjective Interval History: Patient is a 58-year-old female with past medical history significant for O2 dependent COPD with recurrent admissions for COPD exacerbations who presents for the same with symptoms of shortness of breath. Patient with worsening leukocytosis on IV antibiotics - Exam Vitals: Temp Pulse Resp BP Pulse Ox 97.9 F 97 15 131/78 98 05/17/18 07:53 05/17/18 07:53 05/17/18 07:53 05/17/18 07:53 05/17/18 07:53 Exam: Gen.: Nonacute distress, alert and oriented 3 ENT: Mucosal membranes moist Respiratory: Lungs are clear to auscultation bilaterally without any wheezing rhonchi or rales Cardiovascular: Normal S1 and S2 regular rate rhythm no murmurs rubs or gallops Abdomen: Soft, nontender and nondistended with positive bowel sounds Extremities: No lower extremity edema Skin: Normal color - Assessment and Plan (1) COPD exacerbation Current Visit: No Status: Acute Assessment and Plan: Patient with past medical history significant for O2 dependent COPD with recurrent admissions for COPD exacerbations who presents for the same with symptoms of shortness of breath. She states that she was supposed to have a potential "lung reduction" recommended by our pulmonologists here at [facility] Patient with worsening leukocytosis but chest x-ray/CT of the chest negative for any acute findings Respiratory panel negative Will continue day 3 of IV azithromycin and ceftriaxone. Continue scheduled DuoNeb nebs and Solu-Medrol. Pulmonology has been consulted and appreciate recommendations (2) Acute on chronic respiratory failure with hypoxia and hypercapnia Current Visit: Yes Status: Acute Assessment and Plan: Resolved as patient now on baseline O2 requirements at 3 L of continuous nasal cannula (3) GERD (gastroesophageal reflux disease) Current Visit: Yes Status: Chronic Assessment and Plan: Continue home dose of PPI (4) Depression with anxiety Current Visit: Yes Status: Chronic Assessment and Plan: Continue home dose of SSRI DVT Prophylaxis: Subcutaneous heparin - Time Spent with Patient Total time spent is greater than 50% in coordination of care (as documented) at patient's floor/unit and/or counseling patient: Internal Medicine: Result - Labs CBC & Chem 7: 05/17/18 12:27 05/17/18 12:21 Labs: Short CBC 05/16/18 Range/Units 10:14 WBC 30.4 H* (4.3-11.1) K/mcL Hgb 12.6 (11.5-15.4) g/dL Hct 38.5 (35.3-44.9) % Plt Count 370 (140-400) K/mcL Neutrophils # 28.5 H (1.6-8.9) K/mcL BMP 05/16/18 10:14 Sodium 137 Potassium 3.9 Chloride 100 Carbon Dioxide 26 BUN 20 Creatinine 0.86 Glucose 294 H Calcium 9.4 - Impressions Impressions Chest CT 05/16/18 10:52 IMPRESSION: 1. Pulmonary emphysema with no evidence of pneumonia 2. Small pericardial effusion D/ / Alexander Leonard MD / Alexander Leonard MD Interpreting Provider: Alexander Leonard MD Consult Discharge Plan - Plan Referrals: Librado Andre MD [Primary Care Provider] - 05/18/18 2:00 pm () (3) GERD (gastroesophageal reflux disease) Qualifiers: Esophagitis presence: esophagitis presence not specified Qualified Code(s): K21.9 - Gastro-esophageal reflux disease without esophagitis
[2018-05-17] MEDS: Azithromycin 500 MG in D5% in Water 250 ML IVPB SCH (10:24)
--- NOTE | 2018-05-17 11:46 | Pulmonology Consult Note ---
Date of Encounter: 05/17/18 Time of Encounter: 10:00 Assessment and Plan (1) Acute and chronic respiratory failure Current Visit: No Status: Acute Patient has acute on chronic hypoxic respiratory failure to continue scheduled bronchodilators, antibiotics, steroids intermittent BiPAP therapy to use BiPAP at night. Qualifiers: Respiratory failure complication: hypoxia Qualified Code(s): J96.21 - Acute and chronic respiratory failure with hypoxia (2) Acute exacerbation of chronic obstructive airways disease Current Visit: No Status: Acute To continue scheduled bronchodilators, steroids, antibiotics. Will need to optimize outpatient regimen before discharge. Patient emphysema is pretty diffuse i dont think lung reduction surgery will help her symptoms. History of Present Illness Consult date: 05/17/18 Requesting physician: Tony Mancia Reason for consult: dyspnea, COPD Chief complaint: Shortness of breath History of present illness: 58-year-old female with past medical history significant for oxygen dependent COPD, BiPAP at night patient is a well-known outpatient to my service patient also recently is getting many COPD exacerbation. Patient was admitted for acute on chronic hypoxic respiratory failure patient benefiting from intermittent BiPAP therapy during the night and day. Patient denies any chest pain chest tightness denies any palpitation or syncope. Patient denies any abdominal symptoms denies any GERD or neuro symptoms. Pulmonary was consulted for evaluation of this frequent COPD exacerbation. Past Med Surg Social Fam HX - Past Medical History Medical history: COPD Additional medical history: Neuro stimulator for neck and arm pain. Psychiatric history: anxiety - Past Surgical History Surgical History: appendectomy, hysterectomy, orthopedic, other Additional surgical history: Neurostimulator in back, bilat eye surgery, cut part of left rib out - Social History Smoking Status: Former smoker Smokeless Tobacco Status: No Alcohol use: occasionally Drug use: none - Family History Mother Living Status: Hx Family Cardiac Disorders: Yes Hx Family Respiratory Disorders: Yes Hx Family Cancer: No Hx Family GI Disorders: Yes (colostomy form colon tear colonoscopy) Hx Family Endocrine Disorder: No Hx Family Neuromuscular Disorders: No Hx Family Neurologic Disorders: No Hx Family HEENT Disorders: No Hx Family Autoimmune Disorders: No Sister Living Status: Still Living Hx Family Respiratory Disorders: Yes (Copd) Father Living Status: Hx Family Cardiac Disorders: Yes (Father-pacemaker) Hx Family Respiratory Disorders: Yes (Mother, Brothers, Sisters) Hx Family Cancer: Yes Hx Family GI Disorders: No Hx Family Endocrine Disorder: Yes (sister-thyroid) Hx Family Neuromuscular Disorders: No Hx Family Neurologic Disorders: Yes (Father-stroke) Hx Family HEENT Disorders: Yes (Mother-meniere's disease) Hx Family Autoimmune Disorders: No Medications and Allergies Budesonide/Formoterol 160/4.5 [Symbicort 160/4.5] 2 puff IH BID 04/06/17 [History] Oxygen 3 l NS AD 04/06/17 [History] Omeprazole [PriLOSEC] 20 mg PO BID 07/27/17 [History] Albuterol Sulfate [Ventolin Hfa] 2 puff IH Q4H PRN 04/08/18 [History] FLUoxetine HCl [PROzac] 20 mg PO DAILY 04/24/18 [History] Ipratropium/Albuterol Neb [Duoneb] 3 ml IH Q4HR PRN 05/15/18 [History] LORazepam [Ativan] 0.5 - 1 g PO DAILY PRN 05/15/18 [History] Allergy/AdvReac Type Severity Reaction Status Date / Time pantoprazole [From Protonix] Allergy HEADACHE/NA Verified 05/15/18 10:34 USEA All Systems: The remainder of the systems were reviewed and are negative Physical Examination Vital Signs: Vital Signs, Last 4 Hours Temp Pulse Resp BP Pulse Ox 05/17/18 11:36 97.5 F L 90 19 115/71 100 05/17/18 07:53 97.9 F 97 15 131/78 98 Effort: mildly labored Auscultation: bilateral: diminished breath sounds, wheezes Cardiovascular: regular rate and rhythm Integumentary: other Extremities: no edema normal mental status, non-focal exam Results - Laboratory Findings CBC and BMP: 05/17/18 12:27 05/17/18 12:21 Abnormal lab findings: Abnormal lab results WBC 30.4 K/mcL (4.3-11.1) H* 05/16/18 10:14 RDW 16.0 % (11.5-14.5) H 05/16/18 10:14 Neutrophils # 28.5 K/mcL (1.6-8.9) H 05/16/18 10:14 Lymphocytes # 0.5 K/mcL (0.6-4.6) L 05/16/18 10:14 Glucose 294 mg/dL (70-105) H 05/16/18 10:14 Lactic Acid 3.6 mmol/L (0.5-2.2) H 05/16/18 18:32 Troponin I 0.06 ng/mL (< 0.04) H* 05/15/18 07:47 - Microbiology Findings Microbiology Findings: Microbiology, Last 48 Hours 05/16/18 14:07 Blood Culture - Preliminary Peripheral Venipuncture Culture is incubating and being continuously monitored for growth. Final report to follow. 05/16/18 14:07 Blood Culture - Preliminary Peripheral Venipuncture Culture is incubating and being continuously monitored for growth. Final report to follow. - Clinical Findings Intake & Output: Intake & Output 05/16/18 05/17/18 05/17/18 23:59 07:59 15:59 Intake Total 2200 / 2200 1000 / 1000 240 / 240 Output Total 300 / 300 Balance 1900 / 1900 1000 / 1000 240 / 240 Weight 72 kg Consult Discharge Plan - Plan Referrals: Librado Andre MD [Primary Care Provider] - 05/18/18 2:00 pm ()
[2018-05-17 12:07] LABS: ABG Base Excess 3 mEq/L (-2 to 3); ABG HCO3 27 mEq/L (21-27); ABG Oxygen Saturation 100 % (95-98); ABG PCO2 38 mmHg (35-45); ABG PH 7.47 pH Units (7.32-7.45); ABG PO2 181 mmHg (85-104); ABG TCO2 28 mEq/L (20-26)
[2018-05-17 12:49] LABS: Mean Platelet Volume 9.7 fL (9.4-12.4)
[2018-05-17 12:50] LABS: Hematocrit 36.8 % (35.3-44.9); Mean Corpuscular HGB Conc 32.6 g/dL (31.6-35.5); Mean Corpuscular Hemoglobin 30.2 pg (28.0-33.3); Mean Corpuscular Volume 92.5 fL (83.0-100.0); Platelet Count 328 K/mcL (140-400); Red Blood Count 3.98 M/mcL (3.82-4.97); Red Cell Distribution Width 16.1 % (11.5-14.5)
[2018-05-17 13:11] LABS: BUN/Creatinine Ratio 23 (6-26); Blood Urea Nitrogen 18 mg/dL (6-20); Calcium 8.7 mg/dL (8.6-10.3); Carbon Dioxide 28 mEq/L (23-29); Chloride 103 mEq/L (98-107); Glucose 153 mg/dL (70-105); Osmolality,Calculated 293 (280-300); Potassium 4.5 mEq/L (3.5-5.1); Sodium 139 mEq/L (136-145); eGFR For Non-African Americans > 60 (> 60)
[2018-05-17 14:55] LABS: Monocytes # 1.7 K/mcL (0.0-1.3); Neutrophils # 27.1 K/mcL (1.6-8.9)
[2018-05-17 14:57] LABS: Anisocytosis 1+ (Not Present); Platelet Estimate Normal (Normal)
[2018-05-17] MEDS: Doxycycline 100 MG in 0.9 % Sodium Chloride Mini Bag 100 ML IVPB SCH (17:38)
[2018-05-18] MEDS: Ipratropium/Albuterol Neb 3 ML IH SCH ×5 (02:56→19:57)
[2018-05-18] MEDS ORDERED: diazePAM 2 MG TABLET PO ONE (02:57)
[2018-05-18] MEDS: Doxycycline 100 MG in 0.9 % Sodium Chloride Mini Bag 100 ML IVPB SCH ×2 (05:26→18:05)
[2018-05-18] MEDS: *HR* Heparin 5,000 UNIT/ML VIAL SQ SCH ×3 (05:27→21:07)
[2018-05-18] MEDS: methylPREDNISolone 125 MG/2 ML VIAL IVP SCH ×3 (05:27→21:06)
[2018-05-18] MEDS: Budesonide/Formoterol 160/4.5 1 PUFF INH IH SCH ×2 (07:37→19:57)
[2018-05-18] MEDS: cefTRIAXone 1,000 MG in 0.9 % Sodium Chloride Mini Bag 100 ML IVPB SCH (08:47)
[2018-05-18 11:42] LABS: Basophils # 0.1 K/mcL (0.0-0.2); Basophils % 0.4 %; Eosinophils % 0.1 %; Hematocrit 38.5 % (35.3-44.9); Hemoglobin 12.5 g/dL (11.5-15.4); Immature Granulocytes % 6.2 % (0-4); Lymphocytes # 0.6 K/mcL (0.6-4.6); Lymphocytes % 2.3 %; Mean Corpuscular HGB Conc 32.5 g/dL (31.6-35.5); Mean Corpuscular Hemoglobin 30.5 pg (28.0-33.3); Mean Corpuscular Volume 93.9 fL (83.0-100.0); Mean Platelet Volume 9.7 fL (9.4-12.4); Monocytes # 0.7 K/mcL (0.0-1.3); Nucleated Red Blood Cells 0.1 /100 WBC (0); Platelet Count 344 K/mcL (140-400); Red Cell Distribution Width 15.7 % (11.5-14.5)
[2018-05-18 12:00] LABS: BUN/Creatinine Ratio 22 (6-26); Blood Urea Nitrogen 18 mg/dL (6-20); Calcium 9.2 mg/dL (8.6-10.3); Carbon Dioxide 28 mEq/L (23-29); Chloride 103 mEq/L (98-107); Glucose 134 mg/dL (70-105); Osmolality,Calculated 296 (280-300); Potassium 4.2 mEq/L (3.5-5.1); Sodium 141 mEq/L (136-145); eGFR For Non-African Americans > 60 (> 60)
[2018-05-18 12:37] LABS: Neutrophils # 21.7 K/mcL (1.6-8.9)
[2018-05-18 12:56] LABS: Platelet Estimate Normal (Normal)
--- NOTE | 2018-05-18 13:17 | Pulmonology Progress Note ---
Date of Encounter: 05/18/18 Time of Encounter: 13:00 Assessment and Plan (1) Acute and chronic respiratory failure Current Visit: No Status: Acute Qualifiers: Respiratory failure complication: hypoxia Qualified Code(s): J96.21 - Acute and chronic respiratory failure with hypoxia (2) Acute exacerbation of chronic obstructive airways disease Current Visit: No Status: Acute Objective PUL Vital signs: Last Vital Signs Temp 97.3 F L 05/18/18 11:24 Pulse 91 05/18/18 11:24 Resp 16 05/18/18 11:24 BP 132/75 05/18/18 11:24 Pulse Ox 99 05/18/18 11:24 Results - Laboratory Findings CBC and BMP: 05/18/18 11:14 05/18/18 11:14 ABG ABG pH 7.47 pH Units (7.32-7.45) H 05/17/18 12:05 ABG pCO2 38 mmHg (35-45) 05/17/18 12:05 ABG pO2 181 mmHg (85-104) H 05/17/18 12:05 ABG O2 Saturation 100 % (95-98) H 05/17/18 12:05 Abnormal lab findings: Abnormal lab results WBC 24.6 K/mcL (4.3-11.1) H 05/18/18 11:14 RDW 15.7 % (11.5-14.5) H 05/18/18 11:14 Immature Gran % 6.2 % (0-4) H 05/18/18 11:14 Neutrophils # 21.7 K/mcL (1.6-8.9) H 05/18/18 11:14 Nucleated RBCs/100 WBC 0.1 /100 WBC (0) H 05/18/18 11:14 Anisocytosis 1+ (Not Present) A 05/17/18 12:27 ABG pH 7.47 pH Units (7.32-7.45) H 05/17/18 12:05 ABG pO2 181 mmHg (85-104) H 05/17/18 12:05 ABG Total CO2 28 mEq/L (20-26) H 05/17/18 12:05 ABG O2 Saturation 100 % (95-98) H 05/17/18 12:05 Glucose 134 mg/dL (70-105) H 05/18/18 11:14 Lactic Acid 3.6 mmol/L (0.5-2.2) H 05/16/18 18:32 Troponin I 0.06 ng/mL (< 0.04) H* 05/15/18 07:47 - Microbiology Findings Microbiology Findings: Microbiology, Last 48 Hours 05/16/18 14:07 Blood Culture - Preliminary Peripheral Venipuncture Culture is incubating and being continuously monitored for growth. Final report to follow. 05/16/18 14:07 Blood Culture - Preliminary Peripheral Venipuncture Culture is incubating and being continuously monitored for growth. Final report to follow. - Clinical Findings Intake & Output: Intake & Output 05/17/18 05/18/18 05/18/18 23:59 07:59 15:59 Intake Total 1929 200 / 200 Balance 1929 200 / 200 Consult Discharge Plan - Plan Referrals: Librado Andre MD [Primary Care Provider] - 05/25/18 1:30 pm ()
[2018-05-18] MEDS ORDERED: Doxycycline 100 MG VIAL ONE (18:04)
--- NOTE | 2018-05-18 19:44 | Internal Med Progress Note ---
Hospitalist Progress Note - Encounter Date of Encounter: 05/18/18 Time of Encounter: 11:00 - Subjective Interval History: Patient with not much improvement in symptoms of shortness of breath. - Exam Vitals: Temp Pulse Resp BP Pulse Ox 98.1 F 90 19 135/80 97 05/18/18 19:03 05/18/18 19:03 05/18/18 19:03 05/18/18 19:03 05/18/18 19:03 Exam: Gen.: Nonacute distress, alert and oriented 3 ENT: Mucosal membranes moist Respiratory: Lungs are clear to auscultation bilaterally without any wheezing rhonchi or rales Cardiovascular: Normal S1 and S2 regular rate rhythm no murmurs rubs or gallops Abdomen: Soft, nontender and nondistended with positive bowel sounds Extremities: No lower extremity edema Skin: Normal color - Assessment and Plan (1) COPD exacerbation Current Visit: No Status: Acute Assessment and Plan: Patient with past medical history significant for O2 dependent COPD with recurrent admissions for COPD exacerbations who presents for the same with symptoms of shortness of breath. She states that she was supposed to have a potential "lung reduction" recommended by our pulmonologists here at [facility] Patient with worsening leukocytosis but chest x-ray/CT of the chest negative for any acute findings Respiratory panel negative Will continue day 4 of IV ceftriaxone and IV doxycycline Continue scheduled DuoNeb nebs and Solu-Medrol. Pulmonology has been consulted and appreciate recommendations (2) Acute on chronic respiratory failure with hypoxia and hypercapnia Current Visit: Yes Status: Acute Assessment and Plan: Resolved as patient now on baseline O2 requirements at 3 L of continuous nasal cannula (3) GERD (gastroesophageal reflux disease) Current Visit: Yes Status: Chronic Assessment and Plan: Continue home dose of PPI (4) Depression with anxiety Current Visit: Yes Status: Chronic Assessment and Plan: Continue home dose of SSRI DVT Prophylaxis: Subcutaneous heparin - Time Spent with Patient Total time spent is greater than 50% in coordination of care (as documented) at patient's floor/unit and/or counseling patient: Internal Medicine: Result - Labs CBC & Chem 7: 05/18/18 11:14 05/18/18 11:14 Labs: Short CBC 05/18/18 Range/Units 11:14 WBC 24.6 H (4.3-11.1) K/mcL Hgb 12.5 (11.5-15.4) g/dL Hct 38.5 (35.3-44.9) % Plt Count 344 (140-400) K/mcL Neutrophils # 21.7 H (1.6-8.9) K/mcL BMP 05/18/18 11:14 Sodium 141 Potassium 4.2 Chloride 103 Carbon Dioxide 28 BUN 18 Creatinine 0.82 Glucose 134 H Calcium 9.2 - ABG Interpretation ABG results: ABG ABG pH 7.47 pH Units (7.32-7.45) H 05/17/18 12:05 ABG pCO2 38 mmHg (35-45) 05/17/18 12:05 ABG pO2 181 mmHg (85-104) H 05/17/18 12:05 ABG O2 Saturation 100 % (95-98) H 05/17/18 12:05 Consult Discharge Plan - Plan Referrals: Librado Andre MD [Primary Care Provider] - 05/25/18 1:30 pm () (3) GERD (gastroesophageal reflux disease) Qualifiers: Esophagitis presence: esophagitis presence not specified Qualified Code(s): K21.9 - Gastro-esophageal reflux disease without esophagitis
[2018-05-18] MEDS: FLUoxetine HCl Oral Soln 20 MG/5 ML UDC PO SCH (21:06)
[2018-05-19] MEDS: Ipratropium/Albuterol Neb 3 ML IH SCH ×7 (00:37→23:32)
[2018-05-19] MEDS: *HR* LORazepam 0.5 MG TABLET PO PRN (01:05)
[2018-05-19] MEDS: *HR* Heparin 5,000 UNIT/ML VIAL SQ SCH ×3 (05:25→19:41)
[2018-05-19] MEDS: methylPREDNISolone 125 MG/2 ML VIAL IVP SCH ×3 (05:25→19:42)
[2018-05-19] MEDS: Doxycycline 100 MG in 0.9 % Sodium Chloride Mini Bag 100 ML IVPB SCH ×2 (05:26→17:38)
[2018-05-19] MEDS: Budesonide/Formoterol 160/4.5 1 PUFF INH IH SCH ×2 (07:31→20:09)
[2018-05-19] MEDS: cefTRIAXone 1,000 MG in 0.9 % Sodium Chloride Mini Bag 100 ML IVPB SCH (08:17)
[2018-05-19] MEDS: FLUoxetine HCl Oral Soln 20 MG/5 ML UDC PO SCH (08:17)
--- NOTE | 2018-05-19 10:22 | Internal Med Progress Note ---
Hospitalist Progress Note - Encounter Date of Encounter: 05/19/18 Time of Encounter: 11:00 - Subjective Interval History: Patient with some improvement in shortness of breath with improving air movement - Exam Vitals: Temp Pulse Resp BP Pulse Ox 97.8 F 96 18 154/83 97 05/19/18 07:19 05/19/18 07:19 05/19/18 07:31 05/19/18 07:19 05/19/18 07:31 Exam: Gen.: Nonacute distress, alert and oriented 3 ENT: Mucosal membranes moist Respiratory: Lungs are clear to auscultation bilaterally without any wheezing rhonchi or rales Cardiovascular: Normal S1 and S2 regular rate rhythm no murmurs rubs or gallops Abdomen: Soft, nontender and nondistended with positive bowel sounds Extremities: No lower extremity edema Skin: Normal color - Assessment and Plan (1) COPD exacerbation Current Visit: No Status: Acute Assessment and Plan: Patient with past medical history significant for O2 dependent COPD with recurrent admissions for COPD exacerbations who presents for the same with symptoms of shortness of breath. She states that she was supposed to have a potential "lung reduction" recommended by our pulmonologists here at [facility] Patient with worsening leukocytosis but chest x-ray/CT of the chest negative for any acute findings Respiratory panel negative Will continue day 5 of IV ceftriaxone and day 2 ofIV doxycycline Continue scheduled DuoNeb nebs and Solu-Medrol. Pulmonology has been consulted and appreciate recommendations (2) Acute on chronic respiratory failure with hypoxia and hypercapnia Current Visit: Yes Status: Acute Assessment and Plan: Resolved as patient now on baseline O2 requirements at 3 L of continuous nasal cannula (3) GERD (gastroesophageal reflux disease) Current Visit: Yes Status: Chronic Assessment and Plan: Continue home dose of PPI (4) Depression with anxiety Current Visit: Yes Status: Chronic Assessment and Plan: Continue home dose of SSRI DVT Prophylaxis: Subcutaneous heparin - Time Spent with Patient Total time spent is greater than 50% in coordination of care (as documented) at patient's floor/unit and/or counseling patient: Internal Medicine: Result - Labs CBC & Chem 7: 05/19/18 12:43 05/19/18 12:43 Labs: Short CBC 05/18/18 Range/Units 11:14 WBC 24.6 H (4.3-11.1) K/mcL Hgb 12.5 (11.5-15.4) g/dL Hct 38.5 (35.3-44.9) % Plt Count 344 (140-400) K/mcL Neutrophils # 21.7 H (1.6-8.9) K/mcL BMP 05/18/18 11:14 Sodium 141 Potassium 4.2 Chloride 103 Carbon Dioxide 28 BUN 18 Creatinine 0.82 Glucose 134 H Calcium 9.2 - ABG Interpretation ABG results: ABG ABG pH 7.47 pH Units (7.32-7.45) H 05/17/18 12:05 ABG pCO2 38 mmHg (35-45) 05/17/18 12:05 ABG pO2 181 mmHg (85-104) H 05/17/18 12:05 ABG O2 Saturation 100 % (95-98) H 05/17/18 12:05 Consult Discharge Plan - Plan Referrals: Librado Andre MD [Primary Care Provider] - 05/25/18 1:30 pm () (3) GERD (gastroesophageal reflux disease) Qualifiers: Esophagitis presence: esophagitis presence not specified Qualified Code(s): K21.9 - Gastro-esophageal reflux disease without esophagitis
--- NOTE | 2018-05-19 11:49 | Pulmonology Progress Note ---
Date of Encounter: 05/19/18 Time of Encounter: 08:00 Assessment and Plan (1) Acute and chronic respiratory failure Current Visit: No Status: Acute Patient has both hypoxic hypercapnic respiratory failure patient on BiPAP intermittently and is on regular nocturnal BiPAP at home. To continue the current settings. Qualifiers: Respiratory failure complication: hypoxia Qualified Code(s): J96.21 - Acute and chronic respiratory failure with hypoxia (2) Acute exacerbation of chronic obstructive airways disease Current Visit: No Status: Acute To continue bronchodilators, steroids and antibiotics to try gentle diuresis. Patient will need the steroid taper to chronic prednisone therapy 10 mg once daily as patient has recurrent COPD exacerbation. I went over the CT scan the patient doubt upper lobe volume reduction surgery will help in her symptoms I told her I will discuss about that further when she comes as an outpatient. Subjective Principal diagnosis: COPD exacerbation Interval history: Symptoms are under better control patient does not complain of chest pain chest tightness has some shortness of breath and increased work of breathing toleratin g BiPAP well Objective PUL Vital signs: Last Vital Signs Temp 97.7 F 05/19/18 11:21 Pulse 99 05/19/18 11:21 Resp 14 05/19/18 11:21 BP 108/66 05/19/18 11:21 Pulse Ox 97 05/19/18 11:21 Effort: mildly labored Auscultation: bilateral: wheezes (Minimal scattered wheezes) Cardiovascular: regular rate and rhythm Gastrointestinal: normoactive bowel sounds Extremities: no edema Musculoskeletal: no deformities normal mental status, non-focal exam affect normal Results - Laboratory Findings CBC and BMP: 05/19/18 12:43 05/19/18 12:43 ABG ABG pH 7.47 pH Units (7.32-7.45) H 05/17/18 12:05 ABG pCO2 38 mmHg (35-45) 05/17/18 12:05 ABG pO2 181 mmHg (85-104) H 05/17/18 12:05 ABG O2 Saturation 100 % (95-98) H 05/17/18 12:05 Abnormal lab findings: Abnormal lab results WBC 24.6 K/mcL (4.3-11.1) H 05/18/18 11:14 RDW 15.7 % (11.5-14.5) H 05/18/18 11:14 Immature Gran % 6.2 % (0-4) H 05/18/18 11:14 Neutrophils # 21.7 K/mcL (1.6-8.9) H 05/18/18 11:14 Nucleated RBCs/100 WBC 0.1 /100 WBC (0) H 05/18/18 11:14 Anisocytosis 1+ (Not Present) A 05/17/18 12:27 ABG pH 7.47 pH Units (7.32-7.45) H 05/17/18 12:05 ABG pO2 181 mmHg (85-104) H 05/17/18 12:05 ABG Total CO2 28 mEq/L (20-26) H 05/17/18 12:05 ABG O2 Saturation 100 % (95-98) H 05/17/18 12:05 Glucose 134 mg/dL (70-105) H 05/18/18 11:14 Lactic Acid 3.6 mmol/L (0.5-2.2) H 05/16/18 18:32 Troponin I 0.06 ng/mL (< 0.04) H* 05/15/18 07:47 - Clinical Findings Intake & Output: Intake & Output 05/18/18 05/19/18 05/19/18 23:59 07:59 15:59 Intake Total 100 / 100 340 / 340 Balance 100 / 100 340 / 340 Weight 70.9 kg Consult Discharge Plan - Plan Referrals: Librado Andre MD [Primary Care Provider] - 05/25/18 1:30 pm ()
[2018-05-19 12:58] LABS: Basophils # 0.1 K/mcL (0.0-0.2); Basophils % 0.5 %; Hematocrit 39.7 % (35.3-44.9); Immature Granulocytes % 6.3 % (0-4); Lymphocytes # 0.5 K/mcL (0.6-4.6); Lymphocytes % 2.5 %; Mean Corpuscular HGB Conc 32.7 g/dL (31.6-35.5); Mean Corpuscular Hemoglobin 29.7 pg (28.0-33.3); Mean Corpuscular Volume 90.8 fL (83.0-100.0); Mean Platelet Volume 9.6 fL (9.4-12.4); Monocytes # 0.8 K/mcL (0.0-1.3); Neutrophils # 18.2 K/mcL (1.6-8.9); Platelet Count 344 K/mcL (140-400); Red Blood Count 4.37 M/mcL (3.82-4.97); Red Cell Distribution Width 15.6 % (11.5-14.5); Segmented Neutrophils % 86.7 %
[2018-05-19 13:16] LABS: BUN/Creatinine Ratio 22 (6-26); Blood Urea Nitrogen 19 mg/dL (6-20); Calcium 9.3 mg/dL (8.6-10.3); Carbon Dioxide 32 mEq/L (23-29); Chloride 100 mEq/L (98-107); Glucose 141 mg/dL (70-105); Osmolality,Calculated 293 (280-300); Potassium 4.3 mEq/L (3.5-5.1); Sodium 139 mEq/L (136-145); eGFR For Non-African Americans > 60 (> 60)
[2018-05-19 14:28] LABS: Platelet Estimate Normal (Normal)
[2018-05-20] MEDS: Ipratropium/Albuterol Neb 3 ML IH SCH ×5 (03:29→19:46)
[2018-05-20] MEDS: *HR* LORazepam 0.5 MG TABLET PO PRN (03:49)
[2018-05-20] MEDS: *HR* Heparin 5,000 UNIT/ML VIAL SQ SCH ×2 (05:57→14:12)
[2018-05-20] MEDS: methylPREDNISolone 125 MG/2 ML VIAL IVP SCH ×2 (05:57→14:12)
[2018-05-20] MEDS: Doxycycline 100 MG in 0.9 % Sodium Chloride Mini Bag 100 ML IVPB SCH ×2 (05:58→18:26)
[2018-05-20] MEDS: Budesonide/Formoterol 160/4.5 1 PUFF INH IH SCH ×2 (07:22→19:47)
[2018-05-20] MEDS: FLUoxetine HCl Oral Soln 20 MG/5 ML UDC PO SCH (09:42)
[2018-05-20] MEDS: cefTRIAXone 1,000 MG in 0.9 % Sodium Chloride Mini Bag 100 ML IVPB SCH (09:42)
--- NOTE | 2018-05-20 14:27 | Pulmonology Progress Note ---
Date of Encounter: 05/21/18 Time of Encounter: 08:00 Assessment and Plan (1) Acute and chronic respiratory failure Status: Acute Patient has both hypoxic hypercapnic respiratory failure patient on BiPAP intermittently and is on regular nocturnal BiPAP at home. To continue the cur rent settings. 05/20 patient like this nocturnal BiPAP settings 01/10 she likes the machine we use in the hospital unfortunately this cannot be given home as and the prescription to [facility] to check her BiPAP machine make sure it is working properly. Encouraged her to use nocturnal noninvasive therapy which will help in liberation of COPD exacerbation.. Patient has an appointment with me on June 02 to continue prednisone to a chronic dose of prednisone 10 mg once daily. Patient does well on walking patient can be discharged home. Qualifiers: Respiratory failure complication: hypoxia Qualified Code(s): J96.21 - Acute and chronic respiratory failure with hypoxia (2) Acute exacerbation of chronic obstructive airways disease Status: Acute To continue bronchodilators, steroids and antibiotics to try gentle diuresis. Patient will need the steroid taper to chronic prednisone therapy 10 mg once daily as patient has recurrent COPD exacerbation. I went over the CT scan the patient doubt upper lobe volume reduction surgery will help in her symptoms I told her I will discuss about that further when she comes as an outpatient. 05/20 patient exercise oximetry looks good patient to be discharged with current home regimen of bronchodilators. With chronic prednisone therapy to complete the course of antibiotics will see her in clinic. Subjective Principal diagnosis: COPD exacerbation Interval history: Symptoms are under better control patient does not complain of chest pain chest tightness has some shortness of breath and increased work of breathing tolerating BiPAP well 05/20 patient does not have any acute overnight events patient says she is almost back to her baseline used to BiPAP 01/10 and she is tolerating well. Objective PUL Vital signs: Last Vital Signs Temp 97.9 F 05/20/18 11:28 Pulse 102 05/20/18 11:28 Resp 16 05/20/18 11:28 BP 153/82 05/20/18 11:28 Pulse Ox 96 05/20/18 11:28 General appearance: no acute distress Effort: mildly labored Auscultation: bilateral: wheezes (Minimal scattered wheezes) Cardiovascular: regular rate and rhythm Gastrointestinal: normoactive bowel sounds Extremities: no edema normal mental status, non-focal exam affect normal Results - Laboratory Findings CBC and BMP: 05/19/18 12:43 05/19/18 12:43 ABG ABG pH 7.47 pH Units (7.32-7.45) H 05/17/18 12:05 ABG pCO2 38 mmHg (35-45) 05/17/18 12:05 ABG pO2 181 mmHg (85-104) H 05/17/18 12:05 ABG O2 Saturation 100 % (95-98) H 05/17/18 12:05 Abnormal lab findings: Abnormal lab results WBC 21.0 K/mcL (4.3-11.1) H 05/19/18 12:43 RDW 15.6 % (11.5-14.5) H 05/19/18 12:43 Immature Gran % 6.3 % (0-4) H 05/19/18 12:43 Neutrophils # 18.2 K/mcL (1.6-8.9) H 05/19/18 12:43 Lymphocytes # 0.5 K/mcL (0.6-4.6) L 05/19/18 12:43 Nucleated RBCs/100 WBC 0.1 /100 WBC (0) H 05/18/18 11:14 Anisocytosis 1+ (Not Present) A 05/17/18 12:27 ABG pH 7.47 pH Units (7.32-7.45) H 05/17/18 12:05 ABG pO2 181 mmHg (85-104) H 05/17/18 12:05 ABG Total CO2 28 mEq/L (20-26) H 05/17/18 12:05 ABG O2 Saturation 100 % (95-98) H 05/17/18 12:05 Carbon Dioxide 32 mEq/L (23-29) H 05/19/18 12:43 Glucose 141 mg/dL (70-105) H 05/19/18 12:43 Lactic Acid 3.6 mmol/L (0.5-2.2) H 05/16/18 18:32 Troponin I 0.06 ng/mL (< 0.04) H* 05/15/18 07:47 - Clinical Findings Intake & Output: Intake & Output 05/19/18 05/20/18 05/20/18 23:59 07:59 15:59 Intake Total 100 / 100 560 / 560 Balance 100 / 100 560 / 560 Weight 71.3 kg Consult Discharge Plan - Plan Instructions: Doxycycline (By mouth), Prednisone (By mouth), Levofloxacin (By mouth), Acute Respiratory Distress Syndrome (DC), Chronic Obstructive Pulmonary Disease (DC), Anxiety (DC) Referrals: Burton Miramontes MD [Partnered Physician] - 06/02/18 9:45 am Librado Andre MD [Primary Care Provider] - 05/25/18 1:30 pm () Prescriptions: Doxycycline 100 mg PO BID 10 Days #20 capsule levoFLOXacin [Levaquin] 750 mg PO DAILY 10 Days #10 tablet predniSONE [PredniSONE] See Taper PO DAILY 30 Days #30 tablet
--- NOTE | 2018-05-20 18:47 | Discharge Summary ---
- NOTES TO OUTPATIENT PROVIDER Notes to Outpatient Provider: PCP in 5 to 7 days Orders not resulted at time of discharge: Pending orders 05/16/18 14:07 Culture,Blood [] Routine Date of Encounter: 05/20/18 Time of Encounter: 18:45 - Discharge Diagnosis (1) Acute on chronic respiratory failure with hypoxia and hypercapnia Priority: Primary Status: Acute Assessment and Plan: Resolved as patient now on baseline O2 requirements at 3 L of continuous nasal cannula (2) COPD exacerbation Priority: Secondary Status: Acute Assessment and Plan: Patient with past medical history significant for O2 dependent COPD with recurrent admissions for COPD exacerbations who presents for the same with symptoms of shortness of breath. She states that she was supposed to have a potential "lung reduction" recommended by our pulmonologists here at [facility] Patient with worsening leukocytosis but chest x-ray/CT of the chest negative for any acute findings Respiratory panel negative Was on IV ceftriaxone and doxycycline. Will DC on Laquin and xoycycline by pulm rec. Continue scheduled DuoNeb nebs and Solu-Medrol will be switched to prednisone taper. Follow up out pt with Pulmonology has been recommended (3) GERD (gastroesophageal reflux disease) Priority: Secondary Status: Chronic Assessment and Plan: Continue home dose of PPI Qualifiers: Esophagitis presence: esophagitis presence not specified Qualified Code(s): K21.9 - Gastro-esophageal reflux disease without esophagitis (4) Depression with anxiety Priority: Secondary Status: Chronic Assessment and Plan: Continue home dose of SSRI Hospital course: History of present illness: Dr. Mancia The patient is a 58-year-old woman with long-standing history of oxygen dependent/BiPAP dependent COPD. She has had more difficulty breathing with dyspnea, coughing and wheezing for the last 2 weeks. Initially started on amoxicillin and prednisone taper; Levaquin substituted for amoxicillin about a week ago. She was able to get some sleep last night. She was very short of breath today morning. If not better after getting cut to nebulizer treatments. She had pulse ox at low 70s at 3 L/min nasal cannula oxygen, when EMS arrived. Her baseline oxygen consumption is 3 L/min. Discharge discussed with: patient - Time Spent with Patient Total time spent providing and/or coordinating discharge services: Time spent: Less than 30 minutes, Greater than 30 minutes - Discharge Medications Prescriptions: No Action Oxygen 3 l NS AD Budesonide/Formoterol 160/4.5 [Symbicort 160/4.5] 2 puff IH BID Omeprazole [PriLOSEC] 20 mg PO BID Albuterol Sulfate [Ventolin Hfa] 2 puff IH Q4H PRN PRN Reason: Shortness Of Breath FLUoxetine HCl [PROzac] 20 mg PO DAILY Ipratropium/Albuterol Neb [Duoneb] 3 ml IH Q4HR PRN PRN Reason: Shortness Of Breath LORazepam [Ativan] 0.5 - 1 g PO DAILY PRN PRN Reason: Anxiety Home Medications: Budesonide/Formoterol 160/4.5 [Symbicort 160/4.5] 2 puff IH BID 04/06/17 [History] Oxygen 3 l NS AD 04/06/17 [History] Omeprazole [PriLOSEC] 20 mg PO BID 07/27/17 [History] Albuterol Sulfate [Ventolin Hfa] 2 puff IH Q4H PRN 04/08/18 [History] FLUoxetine HCl [PROzac] 20 mg PO DAILY 04/24/18 [History] Ipratropium/Albuterol Neb [Duoneb] 3 ml IH Q4HR PRN 05/15/18 [History] LORazepam [Ativan] 0.5 - 1 g PO DAILY PRN 05/15/18 [History] Allergies/Adverse Reactions: Allergy/AdvReac Type Severity Reaction Status Date / Time pantoprazole [From Protonix] Allergy HEADACHE/NA Verified 05/15/18 10:34 USEA Date of admission: 05/16/18 19:06 Primary care physician: Librado Andre MD Consults: 05/14/18 10:37 Consult to Solution Advisor [CONS] Routine Reason for SW Consult: advanced directives, POA, living will 05/16/18 18:54 Consult to Pulmonology [CONS] Routine Consulting Provider: [facility] Reason for Consult: Acute hypoxic respiratory failure Call Completed: Yes 05/17/18 08:58 Consult to Nurse Navigator [CONS] Routine Comment: COPD 05/18/18 13:46 Consult to Nurse Navigator [CONS] Routine Comment: [facility] Discharging clinician: Manasa Sommer Anticipated date of discharge: 05/20/18 - Constitutional Vitals: Temp Pulse Resp BP Pulse Ox 97.5 F L 87 18 138/78 98 05/20/18 15:57 05/20/18 15:57 05/20/18 15:57 05/20/18 15:57 05/20/18 15:57 General appearance: Present: A&O X 3, no acute distress, answers questions appropriately Exam: PHYSICAL EXAM: Skin: Free of rash and discoloration. Eyes: Sclera is white. There is no discharge from eyes. ENMT: Oral/pharyngeal mucosa is normal in appearance. There is no discharge from nose or ears. Respiratory: Normal breath sounds to. Bibasilar crackles. CV: Heart is regular with no gallop or murmur. GI: Abdomen is flat and soft with no palpable mass or visceromegaly. : There is no tenderness in patient's flanks bilaterally. Neuro exam: He has good strength in upper and lower extremities. He has normal eye movements. - Patient Status Disposition: Home, Self-Care Condition: Undetermined Overall status at discharge: patient is back to baseline - Discharge Instructions Follow Up With: Burton Miramontes MD [Partnered Physician] - 06/02/18 9:45 am Librado Andre MD [Primary Care Provider] - 05/25/18 1:30 pm () - Diet and Activity Activity: increase activity as tolerated Diet: advance to your usual diet
[2018-05-20 19:16] VITALS: BP 136/79
== END 2018-05-20 20:12 | disposition home or self-care (01) | DRG 189 ==
LOC: 3BNU 06:41 → EMEROOARM 06:41 → SUATTDRO 08:51 → 3BNU 09:48
PROVIDERS: ADMIT Internal Medicine; ATTEND Hospitalist

== ENCOUNTER 2018-10-08 11:33 | Inpatient (IN) ==
[2018-10-08] MEDS ORDERED: methylPREDNISolone 125 MG/2 ML VIAL IVP ONE (11:55)
[2018-10-08] MEDS ORDERED: Ipratropium/Albuterol Neb 3 ML IH ONE (11:55)
[2018-10-08 12:31] LABS: Red Cell Distribution Width 14.9 % (11.5-14.5)
[2018-10-08 12:33] LABS: VBG HCO3 30 mEq/L (21-27); VBG PCO2 45 mmHg (41-51); VBG PH 7.43 pH Units (7.32-7.42); VBG PO2 47 mmHg (25-50)
[2018-10-08 12:37] LABS: Basophils # 0.1 K/mcL (0.0-0.2); Basophils % 0.4 %; Eosinophils # 0.2 K/mcL (0.0-0.6); Eosinophils % 1.3 %; Hematocrit 43.6 % (35.3-44.9); Hemoglobin 14.3 g/dL (11.5-15.4); Immature Granulocytes % 1.8 % (0-4); Lymphocytes # 2.5 K/mcL (0.6-4.6); Lymphocytes % 17.7 %; Mean Corpuscular HGB Conc 32.8 g/dL (31.6-35.5); Mean Corpuscular Hemoglobin 31.2 pg (28.0-33.3); Mean Corpuscular Volume 95.2 fL (83.0-100.0); Mean Platelet Volume 9.7 fL (9.4-12.4); Monocytes # 0.9 K/mcL (0.0-1.3); Monocytes % 6.3 %; Neutrophils # 10.3 K/mcL (1.6-8.9); Platelet Count 340 K/mcL (140-400); Red Blood Count 4.58 M/mcL (3.82-4.97); Segmented Neutrophils % 72.5 %; White Blood Count 14.2 K/mcL (4.3-11.1)
[2018-10-08 12:47] LABS: BUN/Creatinine Ratio 12 (6-26); Blood Urea Nitrogen 11 mg/dL (6-20); Calcium 9.8 mg/dL (8.6-10.3); Carbon Dioxide 29 mEq/L (23-29); Chloride 100 mEq/L (98-107); Glucose 94 mg/dL (70-105); Osmolality,Calculated 291 (280-300); Potassium 3.5 mEq/L (3.5-5.1); Sodium 141 mEq/L (136-145); Troponin I < 0.03 ng/mL (< 0.04); eGFR For African Americans > 60 (> 60); eGFR For Non-African Americans > 60 (> 60)
[2018-10-08 13:05] LABS: Platelet Estimate Normal (Normal)
[2018-10-08] MEDS ORDERED: Naloxone 0.4 MG/ML INJ IVP PRN (17:13)
[2018-10-08] MEDS ORDERED: *HR* LORazepam 1 MG TABLET PO PRN (17:17)
[2018-10-08] MEDS ORDERED: 0.9 % Sodium Chloride 250 ML IVC ONE (17:43)
[2018-10-08] MEDS: Albuterol 2.5 MG/3 ML NEBULIZER IH PRN (18:12)
[2018-10-08] MEDS: *HR* Heparin 5,000 UNIT/ML VIAL SQ SCH (19:34)
[2018-10-08] MEDS: Ipratropium/Albuterol Neb 3 ML IH SCH (20:03)
[2018-10-08] MEDS: Budesonide/Formoterol 160/4.5 1 PUFF INH IH SCH (20:03)
[2018-10-09] MEDS: Ipratropium/Albuterol Neb 3 ML IH SCH ×7 (00:12→23:17)
[2018-10-09] MEDS: Piperacillin/Tazobactam 3.375 GM in 0.9 % Sodium Chloride Mini Bag 100 ML IVPB SCH ×4 (00:23→23:33)
[2018-10-09] MEDS: methylPREDNISolone 125 MG/2 ML VIAL IVP SCH ×4 (00:23→23:34)
[2018-10-09 04:38] LABS: Basophils % 0.1 %; Hematocrit 40.3 % (35.3-44.9); Hemoglobin 13.1 g/dL (11.5-15.4); Immature Granulocytes % 1.7 % (0-4); Lymphocytes # 0.6 K/mcL (0.6-4.6); Lymphocytes % 4.6 %; Mean Corpuscular HGB Conc 32.5 g/dL (31.6-35.5); Mean Corpuscular Hemoglobin 31.1 pg (28.0-33.3); Mean Corpuscular Volume 95.7 fL (83.0-100.0); Mean Platelet Volume 9.3 fL (9.4-12.4); Monocytes # 0.2 K/mcL (0.0-1.3); Monocytes % 1.4 %; Neutrophils # 11.3 K/mcL (1.6-8.9); Platelet Count 335 K/mcL (140-400); Red Blood Count 4.21 M/mcL (3.82-4.97); Red Cell Distribution Width 14.6 % (11.5-14.5); Segmented Neutrophils % 92.2 %; White Blood Count 12.2 K/mcL (4.3-11.1)
[2018-10-09 04:58] LABS: BUN/Creatinine Ratio 14 (6-26); Blood Urea Nitrogen 12 mg/dL (6-20); Calcium 9.3 mg/dL (8.6-10.3); Carbon Dioxide 24 mEq/L (23-29); Chloride 102 mEq/L (98-107); Glucose 177 mg/dL (70-105); Osmolality,Calculated 288 (280-300); Potassium 4.1 mEq/L (3.5-5.1); Sodium 137 mEq/L (136-145); eGFR For African Americans > 60 (> 60); eGFR For Non-African Americans > 60 (> 60)
[2018-10-09] MEDS: *HR* Heparin 5,000 UNIT/ML VIAL SQ SCH ×3 (05:07→21:56)
[2018-10-09 05:32] LABS: Bilirubin,Urine Negative (Negative); Blood,Urine Negative (Negative); Clarity,Urine Clear (Clear); Color,Urine Yellow (Yellow); Glucose,Urine (UA) 100 mg/dL (Normal); Ketones,Urine Negative (Negative); Leukocyte Esterase,Urine Negative (Negative); Nitrite,Urine Negative (Negative); PH,Urine 6.5 pH Units (5.0-8.0); Protein,Urine Negative (Neg-Trace); Specific Gravity,Urine 1.017 (1.010-1.025); Urobilinogen,Urine Normal (Normal)
[2018-10-09] MEDS: FLUoxetine 20 MG CAPSULE PO SCH (07:30)
[2018-10-09] MEDS: Budesonide/Formoterol 160/4.5 1 PUFF INH IH SCH ×2 (07:42→20:23)
[2018-10-09] MEDS ORDERED: Isovue-370 500 ML BOTTLE IVP ONE (07:53)
[2018-10-09] MEDS ORDERED: 0.9 % Sodium Chloride 500 ML IVC ONE ×2 (10:24→14:08)
[2018-10-09 11:02] LABS: VBG HCO3 24 mEq/L (21-27); VBG PCO2 35 mmHg (41-51); VBG PH 7.45 pH Units (7.32-7.42); VBG PO2 182 mmHg (25-50)
[2018-10-09] MEDS: 0.9 % Sodium Chloride 1,000 ML IVC SCH (14:22)
[2018-10-09] MEDS ORDERED: Fluticasone Propionate Nasal 50 MCG/SPRAY BOTTLE NS PRN (16:09)
[2018-10-10] MEDS: Ipratropium/Albuterol Neb 3 ML IH SCH ×5 (04:09→20:11)
[2018-10-10] MEDS: 0.9 % Sodium Chloride 1,000 ML IVC SCH ×3 (04:59→19:22)
[2018-10-10] MEDS: *HR* Heparin 5,000 UNIT/ML VIAL SQ SCH ×3 (05:01→21:58)
[2018-10-10] MEDS: Piperacillin/Tazobactam 3.375 GM in 0.9 % Sodium Chloride Mini Bag 100 ML IVPB SCH ×3 (07:36→23:58)
[2018-10-10] MEDS: FLUoxetine 20 MG CAPSULE PO SCH (07:36)
[2018-10-10] MEDS: methylPREDNISolone 125 MG/2 ML VIAL IVP SCH (07:36)
[2018-10-10] MEDS: Budesonide/Formoterol 160/4.5 1 PUFF INH IH SCH ×2 (07:52→20:11)
[2018-10-10 08:20] LABS: Basophils % 0.1 %; Hemoglobin 12.1 g/dL (11.5-15.4); Immature Granulocytes % 2.1 % (0-4); Monocytes % 2.8 %; Red Cell Distribution Width 15.1 % (11.5-14.5); Segmented Neutrophils % 92.4 %
[2018-10-10 08:21] LABS: Lymphocytes % 2.6 %; Mean Corpuscular HGB Conc 31.8 g/dL (31.6-35.5); Mean Corpuscular Hemoglobin 31.6 pg (28.0-33.3); Mean Corpuscular Volume 99.2 fL (83.0-100.0); Mean Platelet Volume 9.8 fL (9.4-12.4); Monocytes # 0.8 K/mcL (0.0-1.3); Neutrophils # 26.7 K/mcL (1.6-8.9); Platelet Count 351 K/mcL (140-400); Red Blood Count 3.83 M/mcL (3.82-4.97); White Blood Count 28.9 K/mcL (4.3-11.1)
[2018-10-10 08:37] LABS: Lymphocytes # 0.8 K/mcL (0.6-4.6)
[2018-10-10 08:38] LABS: Platelet Estimate Normal (Normal)
[2018-10-10] MEDS ORDERED: predniSONE 20 MG TABLET PO SCH (09:00)
[2018-10-11] MEDS: Ipratropium/Albuterol Neb 3 ML IH SCH ×7 (00:10→23:29)
[2018-10-11] MEDS: *HR* Heparin 5,000 UNIT/ML VIAL SQ SCH ×3 (04:52→21:50)
[2018-10-11] MEDS: Albuterol 2.5 MG/3 ML NEBULIZER IH PRN (05:46)
[2018-10-11 05:49] LABS: Basophils # 0.1 K/mcL (0.0-0.2); Basophils % 0.3 %; Eosinophils % 0.1 %; Hematocrit 36.4 % (35.3-44.9); Hemoglobin 11.5 g/dL (11.5-15.4); Immature Granulocytes % 2.9 % (0-4); Lymphocytes # 2.4 K/mcL (0.6-4.6); Lymphocytes % 10.6 %; Mean Corpuscular HGB Conc 31.6 g/dL (31.6-35.5); Mean Corpuscular Hemoglobin 31.1 pg (28.0-33.3); Mean Corpuscular Volume 98.4 fL (83.0-100.0); Mean Platelet Volume 9.5 fL (9.4-12.4); Monocytes % 4.3 %; Neutrophils # 18.1 K/mcL (1.6-8.9); Platelet Count 331 K/mcL (140-400); Segmented Neutrophils % 81.8 %; White Blood Count 22.2 K/mcL (4.3-11.1)
[2018-10-11 06:14] LABS: Alanine Aminotransferase 9 Units/L (7-52); Albumin 3.6 g/dL (3.5-5.7); Albumin/Globulin Ratio 2.1 (1.1-2.2); Alkaline Phosphatase 53 Units/L (34-104); Aspartate Amino Transferase 9 Units/L (13-39); BUN/Creatinine Ratio 19 (6-26); Bilirubin,Total 0.3 mg/dL (0.3-1.0); Blood Urea Nitrogen 20 mg/dL (6-20); Calcium 8.7 mg/dL (8.6-10.3); Carbon Dioxide 28 mEq/L (23-29); Chloride 103 mEq/L (98-107); Globulin 1.7 g/dL (2.4-3.5); Glucose 112 mg/dL (70-105); Osmolality,Calculated 295 (280-300); Potassium 3.6 mEq/L (3.5-5.1); Sodium 141 mEq/L (136-145); Total Protein 5.3 g/dL (6.4-8.9); eGFR For African Americans > 60 (> 60); eGFR For Non-African Americans 55 (> 60)
[2018-10-11] MEDS: Budesonide/Formoterol 160/4.5 1 PUFF INH IH SCH ×2 (07:38→19:37)
[2018-10-11] MEDS: FLUoxetine 20 MG CAPSULE PO SCH (07:39)
[2018-10-11] MEDS: Piperacillin/Tazobactam 3.375 GM in 0.9 % Sodium Chloride Mini Bag 100 ML IVPB SCH (07:39)
[2018-10-11] MEDS: Azithromycin 500 MG in 0.9 % Sodium Chloride 250 ML IVPB SCH (14:21)
[2018-10-11] MEDS: MethylPREDNISolone 40 MG/ML VIAL IVP SCH (16:03)
[2018-10-11] MEDS: 0.9 % Sodium Chloride 1,000 ML IVC SCH (19:06)
[2018-10-12] MEDS: Ipratropium/Albuterol Neb 3 ML IH SCH ×6 (03:59→23:36)
[2018-10-12] MEDS: MethylPREDNISolone 40 MG/ML VIAL IVP SCH ×2 (06:33→16:47)
[2018-10-12] MEDS: *HR* Heparin 5,000 UNIT/ML VIAL SQ SCH ×3 (06:33→21:28)
[2018-10-12 06:46] LABS: Basophils # 0.1 K/mcL (0.0-0.2); Basophils % 0.3 %; Eosinophils % 0.1 %; Hematocrit 38.4 % (35.3-44.9); Hemoglobin 12.4 g/dL (11.5-15.4); Immature Granulocytes % 4.5 % (0-4); Lymphocytes # 1.8 K/mcL (0.6-4.6); Lymphocytes % 11.7 %; Mean Corpuscular HGB Conc 32.3 g/dL (31.6-35.5); Mean Corpuscular Hemoglobin 31.2 pg (28.0-33.3); Mean Corpuscular Volume 96.5 fL (83.0-100.0); Mean Platelet Volume 9.6 fL (9.4-12.4); Monocytes # 0.6 K/mcL (0.0-1.3); Monocytes % 4.1 %; Neutrophils # 12.1 K/mcL (1.6-8.9); Platelet Count 351 K/mcL (140-400); Red Blood Count 3.98 M/mcL (3.82-4.97); Red Cell Distribution Width 14.7 % (11.5-14.5); Segmented Neutrophils % 79.3 %; White Blood Count 15.3 K/mcL (4.3-11.1)
[2018-10-12 07:07] LABS: BUN/Creatinine Ratio 17 (6-26); Blood Urea Nitrogen 14 mg/dL (6-20); Calcium 9.4 mg/dL (8.6-10.3); Carbon Dioxide 30 mEq/L (23-29); Chloride 101 mEq/L (98-107); Glucose 114 mg/dL (70-105); Osmolality,Calculated 293 (280-300); Sodium 141 mEq/L (136-145); eGFR For African Americans > 60 (> 60); eGFR For Non-African Americans > 60 (> 60)
[2018-10-12] MEDS: Budesonide/Formoterol 160/4.5 1 PUFF INH IH SCH ×2 (07:29→19:47)
[2018-10-12] MEDS: FLUoxetine 20 MG CAPSULE PO SCH (07:47)
[2018-10-12] MEDS ORDERED: Furosemide 20 MG TABLET PO ONE (10:12)
[2018-10-12] MEDS: Azithromycin 500 MG in 0.9 % Sodium Chloride 250 ML IVPB SCH (15:14)
[2018-10-13] MEDS: Ipratropium/Albuterol Neb 3 ML IH SCH ×6 (04:15→23:53)
[2018-10-13 06:29] LABS: Basophils # 0.1 K/mcL (0.0-0.2); Basophils % 0.5 %; Eosinophils % 0.1 %; Hematocrit 37.2 % (35.3-44.9); Hemoglobin 12.1 g/dL (11.5-15.4); Immature Granulocytes % 4.7 % (0-4); Lymphocytes # 1.9 K/mcL (0.6-4.6); Lymphocytes % 12.4 %; Mean Corpuscular HGB Conc 32.5 g/dL (31.6-35.5); Mean Corpuscular Hemoglobin 30.9 pg (28.0-33.3); Mean Corpuscular Volume 95.1 fL (83.0-100.0); Mean Platelet Volume 9.6 fL (9.4-12.4); Monocytes # 0.8 K/mcL (0.0-1.3); Monocytes % 5.1 %; Neutrophils # 11.7 K/mcL (1.6-8.9); Nucleated Red Blood Cells 0.1 /100 WBC (0); Platelet Count 358 K/mcL (140-400); Red Blood Count 3.91 M/mcL (3.82-4.97); Red Cell Distribution Width 14.6 % (11.5-14.5); Segmented Neutrophils % 77.2 %; White Blood Count 15.2 K/mcL (4.3-11.1)
[2018-10-13 06:50] LABS: BUN/Creatinine Ratio 20 (6-26); Blood Urea Nitrogen 17 mg/dL (6-20); Calcium 9.5 mg/dL (8.6-10.3); Carbon Dioxide 33 mEq/L (23-29); Chloride 98 mEq/L (98-107); Glucose 123 mg/dL (70-105); Osmolality,Calculated 295 (280-300); Sodium 141 mEq/L (136-145); eGFR For African Americans > 60 (> 60); eGFR For Non-African Americans > 60 (> 60)
[2018-10-13] MEDS: Budesonide/Formoterol 160/4.5 1 PUFF INH IH SCH ×2 (07:13→20:07)
[2018-10-13] MEDS: predniSONE 20 MG TABLET PO SCH ×2 (08:01→16:59)
[2018-10-13] MEDS: *HR* Heparin 5,000 UNIT/ML VIAL SQ SCH ×3 (08:02→21:00)
[2018-10-13] MEDS: FLUoxetine 20 MG CAPSULE PO SCH (08:04)
[2018-10-13] MEDS: Azithromycin 250 MG TABLET PO SCH (08:51)
[2018-10-13] MEDS: Albuterol 2.5 MG/3 ML NEBULIZER IH PRN (17:45)
[2018-10-14] MEDS: Ipratropium/Albuterol Neb 3 ML IH SCH ×3 (03:37→11:00)
[2018-10-14] MEDS: *HR* Heparin 5,000 UNIT/ML VIAL SQ SCH (05:28)
[2018-10-14 05:57] LABS: Hematocrit 39.6 % (35.3-44.9); Hemoglobin 12.8 g/dL (11.5-15.4); Mean Corpuscular HGB Conc 32.3 g/dL (31.6-35.5); Mean Corpuscular Hemoglobin 31.4 pg (28.0-33.3); Mean Corpuscular Volume 97.1 fL (83.0-100.0); Mean Platelet Volume 9.6 fL (9.4-12.4); Platelet Count 388 K/mcL (140-400); Red Blood Count 4.08 M/mcL (3.82-4.97); Red Cell Distribution Width 14.6 % (11.5-14.5); White Blood Count 15.3 K/mcL (4.3-11.1)
[2018-10-14 06:24] LABS: BUN/Creatinine Ratio 20 (6-26); Blood Urea Nitrogen 17 mg/dL (6-20); Calcium 9.5 mg/dL (8.6-10.3); Carbon Dioxide 31 mEq/L (23-29); Chloride 99 mEq/L (98-107); Glucose 140 mg/dL (70-105); Osmolality,Calculated 296 (280-300); Potassium 4.1 mEq/L (3.5-5.1); Sodium 141 mEq/L (136-145); eGFR For African Americans > 60 (> 60); eGFR For Non-African Americans > 60 (> 60)
[2018-10-14 06:57] LABS: Lymphocytes # 1.8 K/mcL (0.6-4.6); Monocytes # 0.3 K/mcL (0.0-1.3); Neutrophils # 12.9 K/mcL (1.6-8.9); Reactive Lymphocytes Present (Not Present)
[2018-10-14 06:58] LABS: Platelet Estimate Normal (Normal)
[2018-10-14] MEDS: FLUoxetine 20 MG CAPSULE PO SCH (07:22)
[2018-10-14] MEDS: Azithromycin 250 MG TABLET PO SCH (07:23)
[2018-10-14] MEDS: predniSONE 20 MG TABLET PO SCH (07:23)
[2018-10-14 08:02] VITALS: BP 134/81
[2018-10-14] MEDS: Budesonide/Formoterol 160/4.5 1 PUFF INH IH SCH (08:07)
== END 2018-10-14 11:41 | disposition home or self-care (01) | DRG 190 ==
LOC: EMEROOARM 11:33 → 2ANU 11:33 → SUATTDRO 16:09 → 2ANU 16:20 → SUATTDRO 10-10 13:56
PROVIDERS: ADMIT Internal Medicine; ATTEND Internal Medicine

== ENCOUNTER 2019-02-22 06:22 | Inpatient (IN) ==
[2019-02-22] MEDS ORDERED: Lidocaine -MPF 2% 2 ML VIAL ONE (06:27)
[2019-02-22] MEDS ORDERED: *HR* Rocuronium Bromide 50 MG/5 ML VIAL ONE (06:27)
[2019-02-22] MEDS ORDERED: Ondansetron 4 MG/2 ML VIAL ONE (06:27)
[2019-02-22] MEDS ORDERED: Lidocaine HCL 4 ML Topical Solution (Laryng-O-Jet Kit Sterile Pak) TP ONE (06:27)
[2019-02-22] MEDS ORDERED: *HR* Succinylcholine 200 MG/10 ML VIAL IVP ONE (06:27)
[2019-02-22] MEDS ORDERED: Dexamethasone 4 MG/ML VIAL ONE (06:27)
[2019-02-22] MEDS ORDERED: *HR* Propofol 200 MG/20 ML VIAL IVP ONE (06:32)
[2019-02-22] MEDS ORDERED: *HR* Midazolam HCl 2 MG/2 ML VIAL ONE (06:34)
[2019-02-22] MEDS ORDERED: *HR* FentaNYL (PF) 100 MCG/2 ML VIAL ONE ×2 (06:34→09:54)
[2019-02-22] MEDS ORDERED: CeFAZolin Syr 2,000MG/20 ML 2,000 MG/20 ML SYRINGE IVPB ONE (07:03)
[2019-02-22] MEDS ORDERED: Heparin 1,000 UNITS/500 mL 0 ML ONE (07:15)
[2019-02-22] MEDS ORDERED: Ringers Solution, Lactated 1,000 ML IVC SCH (07:15)
[2019-02-22] MEDS ORDERED: *HR* HYDROmorphone (PF) 1 MG/ML SYRINGE IVP PRN (07:25)
[2019-02-22] MEDS ORDERED: *HR* OxyCODONE Immed Rel 5 MG TABLET PO PRN (07:25)
[2019-02-22] MEDS ORDERED: Ondansetron 4 MG/2 ML VIAL IVP ONE (07:25)
[2019-02-22] MEDS ORDERED: Heparin 1,000 UNITS/500 mL 500 ML ONE (07:29)
[2019-02-22] MEDS ORDERED: Albuterol 2.5 MG/3 ML NEBULIZER IH ONE (07:42)
[2019-02-22] MEDS ORDERED: ceFAZolin 1,000 MG, Sodium Chloride IRRigation 1,000 ML IR ONE (07:45)
[2019-02-22] MEDS ORDERED: Acetaminophen IV 1,000 MG/100 ML INFUS..BTL ONE (08:12)
[2019-02-22] MEDS ORDERED: *HR* Heparin 5,000 UNIT/ML VIAL ONE (08:43)
[2019-02-22] MEDS ORDERED: *HR* Labetalol 20 MG/4 ML SYRINGE IVP PRN (12:30)
[2019-02-22] MEDS ORDERED: Ipratropium/Albuterol Neb 3 ML IH PRN (12:30)
[2019-02-22] MEDS ORDERED: Ondansetron 4 MG/2 ML VIAL IVP PRN (12:30)
[2019-02-22] MEDS ORDERED: *HR* LORazepam 1 MG TABLET PO PRN (12:30)
[2019-02-22] MEDS ORDERED: Naloxone 0.4 MG/ML INJ IVP PRN (12:30)
[2019-02-22] MEDS ORDERED: Acetaminophen 325 MG TABLET PO PRN (12:30)
[2019-02-22] MEDS: Ipratropium/Albuterol Neb 3 ML IH SCH ×2 (19:41→23:45)
[2019-02-22] MEDS: Budesonide/Formoterol 160/4.5 1 PUFF INH IH SCH (19:46)
[2019-02-23] MEDS: Ipratropium/Albuterol Neb 3 ML IH SCH ×6 (04:05→23:08)
[2019-02-23 04:06] LABS: Basophils % 0.3 %; Eosinophils % 0.3 %; Hematocrit 32.1 % (35.3-44.9); Hemoglobin 10.3 g/dL (11.5-15.4); Immature Granulocytes % 0.3 % (0-4); Lymphocytes # 1.7 K/mcL (0.6-4.6); Lymphocytes % 12.9 %; Mean Corpuscular HGB Conc 32.1 g/dL (31.6-35.5); Mean Corpuscular Hemoglobin 30.5 pg (28.0-33.3); Mean Platelet Volume 9.9 fL (9.4-12.4); Monocytes # 0.9 K/mcL (0.0-1.3); Monocytes % 6.6 %; Neutrophils # 10.5 K/mcL (1.6-8.9); Platelet Count 342 K/mcL (140-400); Red Blood Count 3.38 M/mcL (3.82-4.97); Segmented Neutrophils % 79.6 %; White Blood Count 13.2 K/mcL (4.3-11.1)
[2019-02-23 04:26] LABS: BUN/Creatinine Ratio 11 (6-26); Blood Urea Nitrogen 10 mg/dL (6-20); Calcium 8.9 mg/dL (8.6-10.3); Carbon Dioxide 28 mEq/L (23-29); Chloride 104 mEq/L (98-107); Glucose 122 mg/dL (70-105); Osmolality,Calculated 286 (280-300); Potassium 4.2 mEq/L (3.5-5.1); Sodium 138 mEq/L (136-145); eGFR For African Americans > 60 (> 60); eGFR For Non-African Americans > 60 (> 60)
[2019-02-23] MEDS: FLUoxetine 20 MG CAPSULE PO SCH (07:34)
[2019-02-23] MEDS: Aspirin Enteric Coated 81 MG Tablet PO SCH (07:34)
[2019-02-23] MEDS: (Roflumilast [Daliresp] 500 MCG) PO SCH (07:35)
[2019-02-23] MEDS: Budesonide/Formoterol 160/4.5 1 PUFF INH IH SCH ×2 (07:40→19:37)
[2019-02-23] MEDS: *HR* HYDROcodone/Acet 5/325 mg TABLET PO PRN ×2 (09:09→16:02)
[2019-02-24] MEDS: *HR* HYDROcodone/Acet 5/325 mg TABLET PO PRN ×2 (01:07→11:32)
[2019-02-24] MEDS: Ipratropium/Albuterol Neb 3 ML IH SCH ×3 (03:10→11:12)
[2019-02-24 06:47] VITALS: BP 96/67
[2019-02-24] MEDS: Budesonide/Formoterol 160/4.5 1 PUFF INH IH SCH (07:14)
[2019-02-24] MEDS: Aspirin Enteric Coated 81 MG Tablet PO SCH (08:39)
[2019-02-24] MEDS: FLUoxetine 20 MG CAPSULE PO SCH (08:39)
[2019-02-24] MEDS: (Roflumilast [Daliresp] 500 MCG) PO SCH (08:40)
== END 2019-02-24 12:45 | disposition home or self-care (01) | DRG 253 ==
LOC: SAMDAY 06:22 → 2NNU 12:15
PROVIDERS: ADMIT Surgery Vascular Surgery; ATTEND Surgery Vascular Surgery